=== PATIENT | female | born 1935 | race Caucasian/White ===

== ENCOUNTER 2020-12-12 14:56 | Outpatient (CLI) | payer MEDICARE, OTHER, SELFPAY ==
--- NOTE | 2020-12-12 15:10 | XR_ITS ---
WS: [id number] XR chest 2V* [id number] REASON FOR EXAM: DYSPNEA FINDINGS: The chest is unchanged compared to previous examination of 03/06/2018. Moderate tortuosity the thoracic aorta without aneurysmal dilatation. Normal heart size. Calcified granulomatous disease in both hemithoraces. No active pulmonary parenchymal or pleural disease. Dorsal kyphosis with degenerative changes in the midthoracic spine. Presumed previous left axillary lymph node dissection. XR/XR chest 2V* [id number] IMPRESSION: No acute chest abnormality.
== END 2020-12-12 14:57 | disposition home or self-care (01) ==
LOC: RAD 15:01
PROVIDERS: PCP Family Medicine; Visit Provider Family Medicine
DX: R06.00 Dyspnea, unspecified (principal)
CPT/HCPCS: 71046

== ENCOUNTER 2020-12-16 05:39 | Day surgery (SDC) | payer MEDICARE, OTHER, SELFPAY ==
[2020-12-15 12:58] VITALS: BMI 40.0
[2020-12-16] VITALS (12 sets, daily range): BP systolic 162–201; BP diastolic 60–107; PULSE 73–111; RESP 10–24; TEMP 36.2–36.9; O2SAT 95–100
--- NOTE | 2020-12-16 | XR_ITS ---
WS: [id number] XR lumbar spine 1V [id number] REASON FOR EXAM: Decompression FINDINGS: Single PA view of the lower lumbar spine in surgery. Surgical instrument overlying the L4-L5 disc space left of midline. XR/XR lumbar spine 1V [id number] IMPRESSION: Intraoperative localization as above.
--- NOTE | 2020-12-16 | SCC_ITS ---
Procedure Done: Left L4/5 laminectomy with partial facetectomy 15.5 seconds of fluoroscopic guidance, for a cumulative dose of 6.54 mGy, was provided to Dr. Talbot by the radiology department. C-arm images of the lumbar spine were saved for the patient's permanent record. WALTER
--- NOTE | 2020-12-16 06:24 | ECG_ITS ---
[facility] Test Date: 2020-12-16 Pat Name: Mary Ellen Benjamin Department: Room: Gender: Female Academic Department Chair: : [id number] Requested By: Chepe Toussaint Order Number: [id number] Pastor MD: Milad Roca M.D. Measurements Intervals [place] Rate: 80 P: 2 AR: 184 QRS: -13 QRSD: 70 T: 9 QT: 364 QTc: 422 Interpretive Statements SINUS RHYTHM LOW QRS VOLTAGE IN PRECORDIAL LEADS [QRS DEFLECTION < 1.0 mV IN CHEST LEADS] No previous ECG available for comparison Electronically Signed On 12-16-2020 18:43:08 CDT by Milad Roca M.D. [email or web address] [email or web address]: [id number]
[2020-12-16] MEDS: sodium chloride 0.9% 1,000 ML 30 ML IV (06:40)
--- NOTE | 2020-12-16 06:50 | P.HP_ITS ---
Providers/Chief Complaint Primary Care Provider: Eduin Zeng MD Chief Complaint: lumbar decompression History of Present Illness Mary Ellen Benjamin is a 85 year old femaleback pain that started 5-6 years ago with no known injury. She states her pain keeps her awake at night as well as limits her actives. She enjoys to garden and is unable to do so due to pain. Chief Complaint: back pain Onset: 5-6 years ago Duration: years Characteristics: sharp, burning Severity: 5/10 Location: low back Radiating symptoms: lateral left thigh and hip Aggravating factors: walking, sitting ,standing Alleviating factors: heat, topical creams, ibuprofen at night some relief Neuro deficits: denies numbness, tingling, weakness, incontinence of bowel/bladder, saddle anesthesia. Prior tx: Dr. Presley - Injection with relief for 5 years. She has received multiple injections this year with relief lasting one day. Review of Systems Narrative: General ROS: negative for weight changes, fever ENT ROS: negative for nasal congestion, drainage or bleeding, sore throat, dysphagia or ear pain Eyes: PERRL Hematological and Lymphatic ROS: negative for swollen glands or abnormal bleeding Endocrine ROS: negative for polyuria/polydpsia or new changes in weight Respiratory ROS: negative for cough, shortness of breath, or wheezing Cardiovascular ROS: negative for chest pain or dyspnea on exertion Gastrointestinal ROS: negative for reflux, abdominal pain, change in bowel habits, or black or bloody stools Musculoskeletal ROS: negative for back pain, neck pain, or joint pain or swelling except for current problem Neurological ROS: negative for TIA or stoke symptoms Skin: no rashe Medications/Allergies Home Medications Medication Instructions Recorded Confirmed Last Taken Type pentazocine 50 mg-naloxone 0.5 mg 1 tab PO Q6H PRN 11/08/20 12/16/20 12/15/20 08:00 History tablet potassium chloride 8 mEq 8 meq PO DAILY 11/08/20 12/16/20 12/15/20 08:00 History capsule,extended release triamterene 50 mg capsule 50 mg PO DAILY 11/08/20 12/16/20 12/15/20 08:00 Hist ory Allergies Allergy/AdvReac Type Severity Reaction Status Date / Time aspirin Allergy rash Verified 12/15/20 12:57 Sulfa (Sulfonamide Allergy hives Verified 12/15/20 12:57 Antibiotics) PFSH Acute PFSH: Medical History History of breast cancer History of malignant melanoma History of melanoma History of nonmelanoma skin cancer HTN (hypertension) Family History Other Hypertension Social History Smoking and tobacco status: never smoked History of recent travel: No Vitals/I&O/Wt Last Vital Signs Temp 98.4 F 12/16/20 06:20 Pulse 90 12/16/20 06:20 Resp 20 H 12/16/20 06:20 BP 176/72 12/16/20 06:20 Pulse Ox 98 12/16/20 06:20 Weight last 48 hrs Weight 226 lb Physical Exam Narrative: EXAM NARRATIVE: CONSTITUTIONAL: The patient is a normal appearing [] in no apparent distress. GENERAL: Patient in no acute distress. CARDIAC: Regular rate and rhythm. CHEST: Normal inspiratory effort, normal respiratory rate. ABDOMEN: Soft and nontender. SKIN: Clear, warm and intact. NEURO?PSYCH: The patient is alert and oriented to person, place and time. Sensorv /SILT Motor StrengthShoulder abduction C5 5/5Wrist extension C6 5/5Elbow extension C7 5/5Hand Transmitter Operator C8 5/5Finger abduction T15/5 Radial/ Ulnar/ Median n intact LowerSensory (SILT)Motor StrengthHin flexion L2/3Ant/inner thigh 5/5Hip adduction L2/3 5/5Knee extension L4 Lat thigh, 5/5Toe dorsiflexion L5 5/5Ankle dorsiflexion L5/ B55Qxonhue flexion S1 5/5 DTRBleeps 2+Triceps 2+Brachioradialis 2+Patellar 2+Achilles 2+ MUSCULOSKELETAL: [] UPPEREXTREMITIES: The patient had full active ROM in fingers, wrist, elbow, and shoulder. The patient demonstrated ability to fully flex/extend/abduct/adduct fingers, make ok sign, cross 2nd/3rd digits, extend 1st digit fully.. Radial pulse 2+, CR<2 seconds. LOWER EXTREMITIES: Pt has full, active ROM of toes, ankle, knee, and hip. Dorsalis pedis/posterior tibialis pulses 2+, CR<2 seconds. SPINE: Skin warm, dry, intact. A&P Assessment and plan (1) Lumbar stenosis with neurogenic claudication: Left L4/5 MIS decompression Status: Acute Attestations Medical Necessity Statement*: failed conservative tx Coding Level of Care Code Acute Silverware Cleaner for Chg Fwd Diagnoses Lumbar stenosis with neurogenic claudication M48.062
--- NOTE | 2020-12-16 06:50 | W.PM.OPSUD ---
Surgery/Procedure H&P Update DATE OF PROCEDURE: December 16, 2020 DATE H&P PERFORMED: 12/16/20 PREOP DIAGNOSIS: lumbar stenosis with neurogenic claudication PLANNED PROCEDURE: Operation Date: 12/16/20 07:00 Proposed Procedures p Lumbar Spine Decompression 28936 M48.062(Not Applicable) - Chepe Talbot DO
--- NOTE | 2020-12-16 07:11 | ANES.PREANE2 ---
Pre-Anesthetic Assessment Pre-Anesthetic Assessment: Height/Weight: Height 1.6 m Weight 102.512 kg Temp Pulse Resp BP Pulse Ox 98.4 F 90 20 H 176/72 98 12/16/20 06:20 12/16/20 06:20 12/16/20 06:20 12/16/20 06:20 12/16/20 06:20 Preop Diagnosis: lumbar stenosis with neurogenic claudication Proposed Procedure: Operation Date: 12/16/20 07:00 Proposed Procedures p Lumbar Spine Decompression [id number] M48.062(Not Applicable) - Chepe Talbot DO Familial anesthetic complications: None Was Beta Cheko taken within 24 hours: N/A Was Clonidine taken within 24 hours: N/A Last intake: Intake Last Liquid Date 12/15/20 Last Liquid Time 22:30 Last Solid Date 12/15/20 Last Solid Time 22:30 Social: Social History: No alcohol and No tobacco Exam: Pre-Anes Outpt Exam: alert, oriented x 3, clear to auscultation bilaterally and regular rate & rhythm Airway: MP: 3 Dentition: False GI: GI: GERD Metabolic: Metabolic: Morbid obesity Anesthetic Plan: ASA status: 3 Anesthesia: General Risk of > 500 ml blood loss (7ml/kg in children): No Meds/Allergies Current Medications: Current Medications Generic Name Dose Route Start Last Admin Trade Name Freq PRN Reason Stop Dose Admin Sodium Chloride 1,000 mls @ 30 ml s/hr 12/16/20 06:00 12/16/20 06:40 Sodium Chloride 0.9% IV 12/17/20 05:59 30 mls/hr .Q24H LYNDSEY Administration PFSH Anesthesia PFSH: Medical History History of breast cancer History of malignant melanoma History of melanoma History of nonmelanoma skin cancer HTN (hypertension) Family History Other Hypertension Social History Smoking and tobacco status: never smoked History of recent travel: No Data Anesthesia Cardiac Studies: No Data to Display
[2020-12-16 07:46] LABS: Blood Urea Nitrogen 16 mg/dL (8-23); Calcium 9.4 mg/dL (8.5-10.5); Carbon Dioxide 26 mmol/L (22-29); Chloride 99 mmol/L (98-107); Sodium 136 mmol/L (136-145)
[2020-12-16 08:51] LABS: Anion Gap 16.2 (5-19); Potassium 5.2 mmol/L (3.5-5.1)
[2020-12-16 08:52] LABS: Glucose 122 mg/dL (65-115); Osmolality Calculated 284 mOsm/kg (285-295)
--- NOTE | 2020-12-16 09:43 | PM.OP ---
Operative Report Date of procedure: December 16, 2020 Pre-op Diagnosis: lumbar stenosis with neurogenic claudication Post-op diagnosis: same Procedure Done: Left L4/5 laminectomy with partial facetectomy Surgeon: Chepe Talbot Anesthesia: General Estimated blood loss (mL): 5 Condition: stable Disposition: PACU Procedure: Patient is brought to the operative suite. After undergoing anesthesia they are placed in the prone position. All areas of impingement are well padded. Patient is then prepped and draped in the normal sterile fashion. A skin incision is made over the L4/5 level. This is confirmed under c-arm guidance. A series of dilators are passed and the tubular retractor is docked on the L4 lamina. A bovie is used to clear the soft tissue off the lamina and the L 4/5 facet joint. A high speed luisa is then used to perform the laminectomy and take down the medial aspect of the L 4/5 facet joint. A kerrison rongeure was then used to take down the remaining lamina and smooth the edge of the laminectomy up to the point where the ligamentum flavum attaches. Attention was then brought to the medial aspect of the facet joint. The remaining medial aspect of the superior and inferior aspect of the facet joint were taken down with the kerrison from the pedicle of L4 to L 5. The facet joint had significant hypertrophy. Attention was then brought to the Ligamentum Flavum. The ligament was taken down from the lamina of L4 to L5 and out medially to the remaining facet joint. The ligament was thick. The dura was then exposed. The dura was in good repair. The L4 nerve was then traced with a curette out the L4/5 foramen and found to be adequately decompressed. The L5 nerve was traced with a curette around the L5 pedicle. The lateral recess was opened with a kerrison helping to further decompress the L5 nerve. Wound is then irrigated copiously with saline and surgiflo is used to stop any bleeding. The tubular retractor is removed and the wound is closed with vicryl and monocryl suture. Glue is then used to protect the wound. A sterile dressing is then placed. Patient was then placed in the supine position and transferred to the PACU in stable condition.
--- NOTE | 2020-12-16 14:30 | ANE.PACU2 ---
Inpatient post-anesthesia follow up: Airway intact: Yes Vital signs: Temperature 97.6 F Pulse Rate 73 Respiratory Rate 18 Blood Pressure 162/88 Pulse Oximetry 99 Oxygen Delivery Me thod Room Air Oxygen Flow Rate 2 Fraction of Inspir ed Oxygen Hydration adequate: Yes Nausea and vomiting: No Pain level: 2 Mental status: Baseline
== END 2020-12-16 11:38 | disposition home or self-care (01) ==
PROVIDERS: Anesthesiology; PCP Family Medicine; Visit Provider Orthopaedic Surgery
PROC: (CPT 63005; principal; 2020-12-16 07:00)
DX: M48.062 Spinal stenosis, lumbar region with neurogenic claudication (principal); K21.9 Gastro-esophageal reflux disease without esophagitis; E66.01 Morbid (severe) obesity due to excess calories; Z68.41 Body mass index [BMI] 40.0-44.9, adult; Z85.3 Personal history of malignant neoplasm of breast; I10 Essential (primary) hypertension; Z82.49 Family history of ischemic heart disease and other diseases of the circulatory system
CPT/HCPCS: 63047; 36415; 72020; 76000; 80048; 93005; J0690; J1100; J1200; J2370; J2405; J2704; J2710; J3010; J3490; J7030

== ENCOUNTER 2021-02-16 07:42 | Outpatient (CLI) | payer MEDICARE, OTHER, SELFPAY ==
--- NOTE | 2021-02-16 07:49 | MR_ITS ---
WS: [id number] MRI LUMBAR SPINE WITH AND WITHOUT CONTRAST. HISTORY: Recent lumbar surgery, December 2020. Increasing abdominal pain. Bilateral leg spasms. COMPARISON: 02/26/2019 TECHNIQUE: Sagittal and axial multisequence imaging is submitted. Sagittal and axial T1 fat sat seque nces post-MultiHance 20 cc IV. Cervix the entire spine demonstrates disc and osteophyte disease encroaching into the cervical canal at C5-6 and C6-7. Similar to the prior study. Increase in the thoracic kyphosis. No cord compression. Straightening of the normal lumbar lordosis. New marrow edema and compression fractures in L3, L4 and L5. Small concavity involving the superior endplate of L3 and L4 with compression fractures are appr oximately 10%. There is a small amount of marrow edema in the RIGHT lateral L4 vertebral body without loss of height. Several benign hemangiomas are noted, L1 and L2. Conus terminates normally at L1-2 disc level. L1-L2: Mild annular disc bulging and mild facet arthritis. No significant stenosis. L2-L3: Diffuse annular disc bulging with slight retropulsion of the posterior superior endplate of L3 encroaching upon the ventral thecal sac. There is deformity of the thecal sac and the nerve roots. S lightly greater deformity involving the RIGHT subarticular recess and proximal foramen. Marked ligame ntum flavum hypertrophy. Mild facet joint arthritis. Disc is asymmetrically extending into the RIGHT foramen, similar to the prior study. Mild central and RIGHT subarticular recess stenosis. L3-L4: Diffuse annular disc bulging and mild osteophytic ridging. There is severe bilateral ligamentu m flavum hypertrophy encroaching into the posterior thecal sac. Mild central, bilateral subarticular and foraminal stenosis. Similar to the prior study. L4-L5: Diffuse annular disc bulging and osteophytic ridging. Severe RIGHT ligamentum flavum hypertrop hy. Prior resection of the LEFT ligamentum flavum since the prior examination. LEFT hemilaminectomy d efect. There is encroachment into the thecal sac by disc and facet and ligamentum flavum hypertrophy. Moderate central stenosis with moderate bilateral subarticular recess stenosis. Slightly greater enc roachment upon the traversing RIGHT L5 nerve root. Mild foraminal stenosis. L5-S1: Mild annular disc bulging and osteophytic ridging. There is very slight retrolisthesis of L5 b y 3 mm. Large prior RIGHT hemilaminectomy defect. Debridement of the RIGHT ligamentum flavum. There i s a central disc protrusion encroaching into the ventral thecal sac. Disc is asymmetrically extending into the RIGHT foramen. Mild disc contact on the RIGHT S1 nerve root but no displacement of the nerv e root. Similar to the prior study. There is mild enhancement within the L3, L4 and L5 vertebral bodies at the site of the fractures. Thi s is probably reactive hyperemia. There is also very slight enhancement along the postsurgical tract at the LEFT L4-5 level. No osteomyelitis. No epidural abscess. Mild paravertebral enhancement is als o noted at the L4 level. No focal collection or abscess. MR/MR lumbar spine wo/w con [id number] IMPRESSION: 1. New compression fractures at L3, L4 and L5. These fractures were not presen t on 11/08/2020 radiograph. 10% loss of height at L3 and L5 with no loss of heigh t at L4. 2. Retropulsion of the L3 vertebral body resulting in deformity of the thecal sac and encroachment centrally and into the RIGHT subarticular recess. 3. Subacute postoperative changes on the LEFT at L4-5 with hemilaminectomy def ect. No evidence for abscess. 4. Mild enhancement within the L3, L4 and L5 vertebral bodies probably due to the fractures. 5. Mild central, bilateral subarticular and foraminal stenosis at L3-4. 6. Moderate central and bilateral subarticular recess stenosis at L4-5 with gr eater encroachment upon the traversing RIGHT L5 nerve root and mild foraminal s tenosis. 7. RIGHT hemilaminectomy defect at L5-S1 is remote. There is central disc prot rusion and osteophytes causing mild contact on the RIGHT S1 nerve root with no displacement. Similar to the prior study.
[2021-02-16] MEDS: gadobenate dimeglumine 20 mL vial IV (08:57)
== END 2021-02-16 07:43 | disposition home or self-care (01) ==
LOC: RADSHAW 07:47
PROVIDERS: PCP Family Medicine; Visit Provider Orthopaedic Surgery
DX: M48.062 Spinal stenosis, lumbar region with neurogenic claudication (principal); Z48.89 Encounter for other specified surgical aftercare; S32.039A Unspecified fracture of third lumbar vertebra, initial encounter for closed fracture; S32.049A Unspecified fracture of fourth lumbar vertebra, initial encounter for closed fracture; S32.059A Unspecified fracture of fifth lumbar vertebra, initial encounter for closed fracture; X58.XXXA Exposure to other specified factors, initial encounter; M48.061 Spinal stenosis, lumbar region without neurogenic claudication
CPT/HCPCS: 72158; A9577

== ENCOUNTER 2021-02-22 17:09 | Emergency (ER) | payer MEDICARE, OTHER, SELFPAY ==
[2021-02-22] VITALS (18 sets, daily range): BP systolic 181–235; BP diastolic 71–125; PULSE 71–86; RESP 18–20; TEMP 36.7–37.1; O2SAT 94–99; BMI 41.7
--- NOTE | 2021-02-22 17:19 | ED_ITS ---
HPI - Back Pain/Injury General: Chief Complaint: Back Pain/Injury Stated Complaint: BACK PAIN POST SURGERY Time Seen by Provider: 02/22/21 17:19 History of Present Illness: HPI Narrative: Patient is an 86-year-old female comes to the ED with acute on chronic back pain. Today while at rest patient started having severe back pain and took 2 of her hydrocodone's and it did not help. Pain is located in lumbar spine. Denies any injury, fall or trauma to cause any acute pain. Today patient that it was hard for her to get up and walk due to the pain in her lower back. Patient had surgery to decompress lumbar spine back and on December 16 and she has been following with Dr. Talbot since. She has still been having quite a bit of pain since surgery. She is had an MRI done a couple weeks ago and went over the results with Dr. Talbot on February 16. She was still having pain at that time and she talked with Dr. Talbot then and he put in a referral for her to see Dr. Polanco to get some steroid injections to help with pain and inflammation. That appointment has not been scheduled. Denies any bladder or bowel incontinence/issues or weakness to lower extremities. Patient states that she takes Triamterene daily for her blood pressure, but states she has not taken her medication for the past 2 to 3 days. Patient says it makes her go to the bathroom and getting up and going to the bathroom causes her pain so she stopped taking it. Patient denies any chest pain, shortness of breath or any current headache. She says she woke up today with very mild light headache but it resolved. Associated symptoms: Deny abdominal pain, chills, dysuria, fatigue, fever(s), hematuria, nausea or vomiting Review of Systems Const: Denies: fever(s), chills or fatigue Eyes: Denies: change in vision or eye discomfort ENMT: Denies: throat pain, odynophagia, nasal discharge or nasal congestion Card: Denies: chest pain, palpitations, edema, swelling of feet/ankles, dyspnea on exertion or orthopnea Resp: Denies: dyspnea, productive cough or non-productive cough GI: Denies: abdominal pain, nausea, vomiting, diarrhea, constipation or hematochezia : Denies: flank pain, dysuria or hematuria Musc: Reports: back pain; Denies: neck pain or extremity swelling Skin/Breast: Denies: rash or new lesions Neuro: Denies: headache(s), numbness in extremities or weakness in extremities PFSH ED PFSH: Medical History History of breast cancer History of malignant melanoma History of melanoma History of nonmelanoma skin cancer HTN (hypertension) Family History Other Hypertension Social History Smoking and tobacco status: never smoked History of recent travel: No Physical Exam Const: COMMON NORMALS: patient oriented x3 and alert GENERAL APPEARANCE: cooperative and comfortable HENMT: COMMON NORMALS: normocephalic HEAD & SCALP: normocephalic MOUTH: Normal oral and palatal mucosa present THROAT: posterior oropharynx normal and uvula midline Neck/C-Spine: COMMON NORMALS: supple GENERAL: Yes normal visual inspection Resp: COMMON NORMALS: normal respiratory effort, No retractions, No use of accessory muscles and clear to auscultation bilaterally AUSCULTATION: clear to auscultation bilaterally Cardio: COMMON NORMALS: regular rate, regular rhythm, S1 normal heart sound present, S2 normal heart sound present, No gallops present (Cardio), No clicks present (Cardio), No murmurs present (Cardio) and Peripheral pulses 2+ throughout RATE: regular rate RHYTHM: regular rhythm HEART SOUNDS: S1 normal heart sound present and S2 normal heart sound present PERIPHERAL P ULSES: Peripheral pulses 2+ throughout GI: COMMON NORMALS: Normal to inspection, nondistended, normoactive bowel sounds present, Soft to palpation, non-tender and no masses PALPATION: Yes Soft to palpation : COMMON NORMALS: Yes no CVA tenderness BLADDER/KIDNEY EXAM: Yes no CVA tenderness Back/Pelvis: COMMON NORMALS: no CVA tenderness LUMBAR SPINE/LOWER BACK: Yes pain with ROM, Yes lumbar spinal tenderness Lumbar spinal tenderness location: L3, L4 and L5 and Yes paraspinal muscle tenderness Lumbar paraspinal muscle tenderness: bilateral Bilateral lumbar paraspinal muscle tenderness: L3, L4 and L5 Extremity: COMMON NORMALS: normal to inspection Neuro: COMMON NORMALS: patient oriented x3 and moves all extremities SENSORIUM/ORIENTATION: Yes alert Skin: GENERAL SKIN EXAM: dry skin Course Reevaluation(s): Reevaluation #1: Patient was able to ambulate up to the bathroom with minimal assistance by the nurse before pain was controlled. Consultations: Consultation #1: I contacted Dr. Talbot the orthospine specialist that sees patient. Told him about patient's current ED visit and he recommended giving patient something stronger for pain like hydrocodone 10 or Percocets to help manage pain at home. He is currently in the process of getting patient set up with Dr. Polanco for outpatient steroid injections to help with pain. Time: 19:29 Consultation #2: After patient received p.o. Percocet she said her back pain had improved greatly and she is feeling a lot better. Vital Signs: Vital signs: Vital Signs Temperature 98.1 F 02/22/21 23:05 Pulse Rate 75 02/22/21 23:05 Respiratory Rate 20 H 02/22/21 23:23 Blood Pressure 195/96 02/22/21 23:05 Pulse Oximetry 96 02/22/21 23:23 MDM - Back Pain/Injury MDM Narrative: Medical decision making narrative: Patient is an 86-year-old female comes to the ED with acute on chronic lower back pain patient has a past medical history of lumbar decompression surgery and is currently being followed by Dr. Talbot. She is in the process of being referred to Dr. Polanco by Dr. Talbot to have spinal steroid injections. She has hydrocodone 5 for pain at home. Denies any acute trauma or injury to cause worsening pain. Denies any other symptoms such as headache, neurological deficits, chest pain or shortness of breath. Patient does admit to not taking any of her blood pressure medications for the past couple days because it makes her go to the bathroom and due to her pain she does not have to get up frequently. Patient appears in no acute distress and is sitting comfortably on wheelchair when I enter the exam room. Rest of exam is benign. Patient had elevated blood pressure here in the ED of 223/94 respiratory vitals are stable. Even after she received morphine to help reduce the pain her systolic blood pressure stayed above 200. Her elevated blood pressure likely due to not taking her prescribed hypertension medications for the past 2 days and acute pain. Patient then had an IV started and labs were drawn. CBC and CMP were unremarkable. I contacted Dr. Talbot and told about patient case. He wanted me to send patient home with a stronger pain medication to help control pain at home. Patient was given 2 doses of 20 mg IV labetalol and her systolic blood pressure reduced down below 190. She was also given a p.o. dose of clonidine. Patient is able to ambulate to the bathroom with minimal assistance by nurse. Patient was given p.o. Percocet and she said that her back pain had improved greatly. Patient was discharged home with a prescription for Percocet and she was told to contact her PCP in the morning to set up an appointment and discuss blood pressure medication management. Stressed with patient the importance of taking her prescribed blood pressure medications as prescribed daily. Return to ED precautions given. Patient under stood and agree with plan. Lab Data: Attestation: I reviewed the patient's lab results. Labs: Lab Results 02/22/21 02/22/21 19:55 19:55 WBC 5.9 10^3/uL 10^3/ uL (4.0-10.0) RBC 4.70 10^6/uL 10^6 /uL (4.1-5.3) Hgb 13.8 g/dL g/dL (11.5-15.3) Hct 42.0 % % (37.0-47.0) MCV 89.4 fl fl (81-99) MCH 29.4 pg pg (28.0-34.0) MCHC 32.9 g/dL g/dL (30.0-36.0) RDW 14.5 % % (12.1-15.1) Plt Count 180 10^3/cmm 10^3 /cmm (130-400) MPV 10.7 fL H fL (7.4-10.4) Neut % (Auto) 85.9 % % Lymph % (Auto) 10.1 % % [place] % (Auto) 3.7 % % Eos % (Auto) 0.0 % % Baso % (Auto) 0.0 % % Neut # (Auto) 5.10 10^3/uL 10^3 /uL (1.8-7.7) Lymph # (Auto) 0.6 10^3/uL L 10^ 3/uL (0.8-4.8) [place] # (Auto) 0.2 10^3/uL 10^3/ uL (0.2-0.9) Eos # (Auto) 0.0 10^3/uL 10^3/ uL (0.0-0.8) Baso # (Auto) 0.0 10^3/uL 10^3/ uL (0.0-0.1) Nucleated RBC % (a uto) 0 % % Nucleated RBCs # 0.0 /100WBC /100W BC Sodium 140 mmol/L mmol/L (136-145) Potassium 3.5 mmol/L mmol/L (3.5-5.1) Chloride 100 mmol/L mmol/L (98-107) Carbon Dioxide 23 mmol/L mmol/L (22-29) Anion Gap 20.5 H (5-19) BUN 7 mg/dL L mg/dL (8-23) Creatinine 0.6 mg/dL mg/dL (0.5-0.9) GFR Calculation Not Reportable Glucose 137 mg/dL H mg/dL (65-115) Calculated Osmolal ity 290 mOsm/kg mOsm/ kg (285-295) Calcium 9.2 mg/dL mg/dL (8.5-10.5) Total Bilirubin 0.9 mg/dL mg/dL (0.15-1.2) AST 18 U/L U/L (0-32) ALT 8 U/L U/L (0-33) Alkaline Phosphata se 197 IU/L H IU/L (35-105) Total Protein 7.4 g/dL g/dL (6.6-8.7) Albumin 4.4 g/dL g/dL (3.5-5.2) Globulin 3.0 g/dL g/dL (1.3-4.6) Discharge Plan Discharge Patient Disposition: Home Clinical Impression: Asymptomatic hypertensive urgency Acute lumbar back pain Qualifiers: Back pain laterality: bilateral Sciatica presence: without sciatica Qualified Code(s): M54.50 - Low back pain, unspecified Condition: Stable Prescriptions: No Action triamterene 50 mg capsule 50 mg PO DAILY RF: 0 pentazocine-naloxone 50-0.5 mg tablet 1 tab PO Q6H PRN (Reason: Pain) RF: 0 potassium chloride 8 mEq capsule, extended release 8 meq PO DAILY RF: 0 hydrocodone-acetaminophen 5-325 mg tablet 1 - 2 tab PO .Q4-6H PRN (Reason: pain) 7 Days Qty: 40 RF: 0 prednisone 20 mg tablet 20 mg PO DAILY Qty: 15 RF: 0 Discharge Orders: Discharge ED (Routine); Ordered 02/22/21 Ordered By: Eduin Armstrong Referrals: Eduin Zeng MD [Primary Care Provider] - Discharge Diet: Regular Discharge Activity: Increase activity as tolerated Patient Instructions: Acute Low Back Pain (ED), Hypertensive Crisis (ED), Opioid Safety Activity Restrictions/Additional Instructions: Follow-up with medical provider as directed. Check blood pressures at home and contact your PCP tomorrow morning to discuss blood pressure medication management and make sure to be taking your blood pressure medications daily. Contact Dr. Talbot's office to set up a follow-up appointment. Take medications as prescribed. Return to the ER or your medical provider if condition worsens. Please read and understand discharge instructions. Thank you for choosing [facility] for your healthcare needs today. Please realize this is an emergency room and that we are providing you with a medical screening exam and this may not be complete and all inclusive of all the testing and or work up that you may need to determine your ailment or severity of your illness. It is very important that you follow up as instructed or that you return to the Emergency Department should you have concerns or if your condition changes or worsens in any way. Coding Level of Care Code ED Lumber Straightener for Isai Estrella Exam Comprehensive
[2021-02-22] MEDS: orphenadrine 30 mg/mL Inj 2 mL 60 MG IM (18:03)
[2021-02-22] MEDS: morphine 4 mg/mL SDV 1 mL IM (18:04)
--- NOTE | 2021-02-22 19:28 | PC.NURSE ---
provider notified of elevated blood pressure and at bedside.
[2021-02-22] MEDS: oxyCODONE-APAP 5-325 mg Tablet 1 TAB PO ×3 (20:09→23:23)
[2021-02-22 20:23] LABS: Hemoglobin 13.8 g/dL (11.5-15.3); Lymphocytes # 0.6 10^3/uL (0.8-4.8); Lymphocytes % 10.1 %; Mean Corpuscular HGB Conc 32.9 g/dL (30.0-36.0); Mean Corpuscular Hemoglobin 29.4 pg (28.0-34.0); Mean Corpuscular Volume 89.4 fl (81-99); Mean Platelet Volume 10.7 fL (7.4-10.4); Monocytes # 0.2 10^3/uL (0.2-0.9); Monocytes % 3.7 %; Neutrophils % 85.9 %; Nucleated Red Blood Cells % 0 %; Platelet Count 180 10^3/cmm (130-400); Red Cell Distribution Width 14.5 % (12.1-15.1); White Blood Count 5.9 10^3/uL (4.0-10.0)
[2021-02-22] MEDS: labetalol 5 mg/mL SDV 20mL 20 MG IVP ×2 (20:24→21:29)
--- NOTE | 2021-02-22 20:27 | PC.NURSE ---
2009- patient escorted to restroom via wheelchair . patient helped up to commode with help. Family at bedside while urniating . Stepped outside of restroom. Call ight within reach. patient wheeled back to room with no difficulties.
[2021-02-22 20:41] LABS: Alanine Aminotransferase 8 U/L (0-33); Albumin Level 4.4 g/dL (3.5-5.2); Alkaline Phosphatase 197 IU/L (35-105); Anion Gap 20.5 (5-19); Aspartate Amino Transferase 18 U/L (0-32); Blood Urea Nitrogen 7 mg/dL (8-23); Calcium 9.2 mg/dL (8.5-10.5); Carbon Dioxide 23 mmol/L (22-29); Chloride 100 mmol/L (98-107); Glucose 137 mg/dL (65-115); Osmolality Calculated 290 mOsm/kg (285-295); Potassium 3.5 mmol/L (3.5-5.1); Sodium 140 mmol/L (136-145); Total Bilirubin 0.9 mg/dL (0.15-1.2); Total Protein 7.4 g/dL (6.6-8.7)
[2021-02-22] MEDS: cloNIDine 0.1 mg Tablet PO (22:51)
== END 2021-02-22 23:05 | disposition home or self-care (01) ==
PROVIDERS: Emergency Provider Physician Assistant; PCP Family Medicine
DX: M54.50 Low back pain, unspecified (principal); I16.0 Hypertensive urgency; Z85.3 Personal history of malignant neoplasm of breast; Z85.820 Personal history of malignant melanoma of skin; I10 Essential (primary) hypertension
CPT/HCPCS: 80053; 85025; 96372; 96374; 96376; 99284; J2270; J2360; J2930; J3490

== ENCOUNTER 2021-02-24 12:36 | Inpatient (IN) | payer MEDICARE, OTHER, SELFPAY ==
[2021-02-24 12:39] VITALS: BMI 38.9
[2021-02-24 12:45] VITALS: BP 190/101; PULSE 72; RESP 16; TEMP 36.8; O2SAT 97
[2021-02-24 13:52] VITALS: RESP 16
[2021-02-24] MEDS: morphine 4 mg/mL SDV 1 mL IVP ×2 (13:52→22:18)
[2021-02-24] MEDS: dexamethasone 10 mg/mL INJ IVP (13:55)
--- NOTE | 2021-02-24 13:59 | NUR.SHIFT ---
pt states that she is unable to provide urine specimen at this time.
[2021-02-24 14:06] LABS: Hemoglobin 12.7 g/dL (11.5-15.3); Lymphocytes % 14.7 %; Mean Corpuscular HGB Conc 32.6 g/dL (30.0-36.0); Mean Corpuscular Hemoglobin 29.4 pg (28.0-34.0); Mean Corpuscular Volume 90.3 fl (81-99); Mean Platelet Volume 10.1 fL (7.4-10.4); Monocytes # 0.6 10^3/uL (0.2-0.9); Monocytes % 8.4 %; Neutrophils # 4.98 10^3/uL (1.8-7.7); Neutrophils % 76.6 %; Nucleated Red Blood Cells % 0 %; Platelet Count 172 10^3/cmm (130-400); Red Blood Count 4.32 10^6/uL (4.1-5.3); Red Cell Distribution Width 14.8 % (12.1-15.1); White Blood Count 6.5 10^3/uL (4.0-10.0)
--- NOTE | 2021-02-24 14:15 | W.ED.BACK ---
HPI - Back Pain/Injury General: Chief Complaint: Back Pain/Injury Stated Complaint: BACK PAIN POST SURGERY Time Seen by Provider: 02/24/21 12:48 History of Present Illness: HPI Narrative: 86-year-old female presents emergency room with complaint of back pain. Several weeks ago patient had a lumbar laminectomy. Since that time she has developed a new compression fractures found on an MRI done recently. She has been referred to the pain clinic for further pain control. She was seen yesterday in the emergency room and given Percocet instead of hydrocodone. She was seen on the by Dr. Talbot who had done her back surgery and also had an MRI on that date. She continues to have radicular leg pain. No saddle anesthesia no fecal incontinence or urinary retention. Patient reporting she has difficulty with standing and walking and transfers due to the pain. MD elicited complaint: back pain Pertinent past history: prior back pain and back surgery Onset (ago): week(s) Timing: constant and progressively worsening Severity: moderate Quality: sharp and spasming Location: lumbar spine Radiation: left upper leg and left leg below the knee Exacerbating factors: movement and walking Relieving factors: supine Associated symptoms: Deny abdominal pain, arthralgias, chills, change in bowel habits, difficulty walking, dysuria, fatigue, fecal incontinence, fever(s), hematuria, myalgias, nausea, numbness, syncope, tingling/numbness/burning, urinary frequency, urinary urgency, vomiting or weakness Review of Systems Const: Denies: fever(s), chills or fatigue ENMT: Denies: throat pain, ear or mastoid pain, nasal discharge or nasal congestion Card: Denies: syncope Resp: Denies: dyspnea, productive cough or non-productive cough GI: Denies: abdominal pain, nausea, vomiting, fecal incontinence or change in bowel habits : Denies: dysuria, urinary urgency or hematuria Skin/Breast: Denies: rash or pruritus Neuro: Denies: difficulty walking PFSH ED PFSH: Medical History History of breast cancer History of malignant melanoma History of melanoma History of nonmelanoma skin cancer HTN (hypertension) Family History Other Hypertension Social History Smoking and tobacco status: never smoked History of recent travel: No Physical Exam Const: COMMON NORMALS: no acute distress GENERAL APPEARANCE: cooperative and comfortable ORIENTATION/CONSCIOUSNESS: Yes awake, Yes oriented to person, Yes oriented to place and Yes oriented to time HENMT: COMMON NORMALS: normocephalic, atraumatic and hearing grossly normal bilaterally HEAD & SCALP: normocephalic and atraumatic Neck/C-Spine: COMMON NORMALS: no JVD Resp: COMMON NORMALS: normal respiratory effort, No retractions, No use of accessory muscles and clear to auscultation bilaterally AUSCULTATION: clear to auscultation bilaterally Cardio: COMMON NORMALS: no JVD, regular rate, regular rhythm and No murmurs present (Cardio) RATE: regular rate RHYTHM: regular rhythm GI: COMMON NORMALS: Soft to palpation and No hepatosplenomegaly present AUSCULTATION: Yes normoactive bowel sounds PALPATION: Yes Soft to palpation, No Tenderness to palpation present (GI), No Guarding due to palpation present (GI) and Yes No hepatosplenomegaly present Extremity: COMMON NORMALS: normal to inspection, capillary refill normal, no clubbing, cyanosis or edema, no calf tenderness and no pedal edema Neuro: SENSORIUM/ORIENTATION: Yes oriented to person, Yes oriented to place and Yes oriented to time Skin: COMMON NORMALS: no rashes or lesions noted GENERAL SKIN EXAM: no rashes or lesions noted Course Vital Signs: Vital signs: Vital Signs Temperature 97.7 F 03/02/21 13:29 Pulse Rate 75 03/02/21 13:29 Respiratory Rate 18 03/02/21 13:29 Blood Pressure 152/59 03/02/21 13:29 Pulse Oximetry 96 03/02/21 13:29 MDM - Back Pain/Injury MDM Narrative: Medical decision making narrative: Patient recently had part hemilaminectomy on a follow-up MRI there are new compression fractures. Patient is unable to manage at this point pain galloway or functional. Will admit for pain control. Consult Dr. Talbot. Discussed with Dr. Reid. At this point patient has no saddle anesthesia no fecal incontinence or urinary retention watch for other potential signs of cauda equina. Lab Data: Labs: Lab Results 1202/24/21 02/24/21 13:57 13:57 14:46 WBC 6.5 10^3/uL 10^3/ uL (4.0-10.0) RBC 4.32 10^6/uL 10^6 /uL (4.1-5.3) Hgb 12.7 g/dL g/dL (11.5-15.3) Hct 39.0 % % (37.0-47.0) MCV 90.3 fl fl (81-99) MCH 29.4 pg pg (28.0-34.0) MCHC 32.6 g/dL g/dL (30.0-36.0) RDW 14.8 % % (12.1-15.1) Plt Count 172 10^3/cmm 10^3 /cmm (130-400) MPV 10.1 fL fL (7.4-10.4) Neut % (Auto) 76.6 % % Lymph % (Auto) 14.7 % % [place] % (Auto) 8.4 % % Eos % (Auto) 0.0 % % Baso % (Auto) 0.0 % % Neut # (Auto) 4.98 10^3/uL 10^3 /uL (1.8-7.7) Lymph # (Auto) 1.0 10^3/uL 10^3/ uL (0.8-4.8) [place] # (Auto) 0.6 10^3/uL 10^3/ uL (0.2-0.9) Eos # (Auto) 0.0 10^3/uL 10^3/ uL (0.0-0.8) Baso # (Auto) 0.0 10^3/uL 10^3/ uL (0.0-0.1) Nucleated RBC % (a uto) 0 % % Nucleated RBCs # 0.0 /100WBC /100W BC Sodium 141 mmol/L mmol/L (136-145) Potassium 3.3 mmol/L L mmol /L (3.5-5.1) Chloride 102 mmol/L mmol/L (98-107) Carbon Dioxide 26 mmol/L mmol/L (22-29) Anion Gap 16.3 (5-19) BUN 15 mg/dL mg/dL (8-23) Creatinine 0.7 mg/dL mg/dL (0.5-0.9) GFR Calculation Not Reportable Glucose 127 mg/dL H mg/dL (65-115) Calculated Osmolal ity 294 mOsm/kg mOsm/ kg (285-295) Calcium 9.2 mg/dL mg/dL (8.5-10.5) Urine Color Yellow (Yellow) Urine Appearance Cloudy (CLEAR) Urine pH 7 (5-7) Ur Specific Gravit y 1.010 (1.005-1.030) Urine Protein Trace (Negative) Urine Glucose (UA) Norm (Normal) Urine Ketones Negative (Negative) Urine Blood Neg (Negative) Urine Nitrate Negative (Negative) Urine Bilirubin Neg (Negative) Urine Urobilinogen Norm mg/dL mg/dL (Negative) Ur Leukocyte Lila ase Negative (Negative) Urine RBC None /hpf /hpf (0-2) Urine WBC None /hpf /hpf (0-5) Ur Squamous Epith Cells None /hpf /hpf (0-5) Amorphous Sediment Not Reportable Urine Bacteria None /hpf /hpf (NONE) Discharge Plan Discharge Patient Disposition: Admitted As Inpatient Admit Provider: Alee Reid Clinical Impression: Lumbar compression fracture, History of malignant melanoma, Lumbar stenosis with neurogenic claudication, History of breast cancer Condition: Stable Discharge Diet: Cardiac Discharge Activity: Increase activity as tolerated Coding Level of Care Code ED Airplane Cover Maker for Chg Fwd Exam Comprehensive
[2021-02-24 14:34] LABS: Anion Gap 16.3 (5-19); Blood Urea Nitrogen 15 mg/dL (8-23); Calcium 9.2 mg/dL (8.5-10.5); Carbon Dioxide 26 mmol/L (22-29); Chloride 102 mmol/L (98-107); Glucose 127 mg/dL (65-115); Osmolality Calculated 294 mOsm/kg (285-295); Potassium 3.3 mmol/L (3.5-5.1); Sodium 141 mmol/L (136-145)
[2021-02-24 15:06] VITALS: RESP 16
[2021-02-24] MEDS: morphine 4 mg/mL SDV 1 mL 6 MG IVP (15:06)
[2021-02-24] MEDS: orphenadrine 30 mg/mL Inj 2 mL 60 MG IVP (15:07)
[2021-02-24] MEDS: labetalol 5 mg/mL SDV 20mL 10 MG IVP (15:13)
[2021-02-24] MEDS: amlodipine 5 mg Tablet PO (15:17)
[2021-02-24 15:26] LABS: Add Urine Microscopic? YES; Bilirubin Urine Neg (Negative); Blood Urine Neg (Negative); Glucose Urine UA Norm (Normal); Ketones Urine Negative (Negative); Leukocyte Esterase Urine Negative (Negative); Nitrate Urine Negative (Negative); Protein Urine Trace (Negative); Urine Appearance Cloudy (CLEAR); Urine Color Yellow (Yellow); Urobilinogen Urine Norm (Negative); pH Urine 7 (5-7)
[2021-02-24 15:27] LABS: Add Urine Culture? No
--- NOTE | 2021-02-24 16:04 | PM.HP ---
Providers/Chief Complaint Primary Care Provider: Eduin Zeng MD Chief Complaint: BACK PAIN POST SURGERY History of Present Illness Mary Ellen Benjamin is a 86 year old female with past medical history of breast cancer and recent L4 L5 laminectomy presented to the ER with complaint of back pain. She says she had surgery done on December 16 and ever since the surgery she has not been able to be pain-free. She has had continuous pain. At first she could walk around with a walker but now cannot do that either. She did see her orthopedic surgeon outpatient in our clinic to go over MRI results recently. MRI from February 16 does show her having new compression fractures at L3-L4 and L5. She states that she was not told this at the clinic when she went to see her surgeon. She says she was told regarding her fractures by her primary care physician yesterday when she went to see him. She was also referred to a pain clinic for possible epidural injections but has not made it there yet so far since the office is closed for the holidays. She has been in a lot of pain. At baseline she has urinary incontinence and thus not something new for her. She has not lost control of her bowels however. She also states she has not taken her blood pressure medication at home and therefore her pressure has been high. She is on losartan 100 mg daily. She was recently in our ER and given pain medication and outpatient appointment with pain clinic and sent home. Today she denies any shortness of breath, chest pain, abdominal pain. She does endorse having a lot of lower back pain. ER course: Blood pressure 190/101 on arrival, respiratory 16, pulse rate 72, temperature 98.3, pulse ox 97%. Imaging from February 16 MRI was reviewed by ER physician. Patient does have new compression fractures at L3, L4, L5. There is retropulsion of L3 vertebral body resulting in deformity of the thecal sac and encroachment centrally and into the right subarticular recess. There is no evidence of abscess. Mild enhancement within L3, L4, L5 probably due to fractures. Mild central bilateral subarticular and foraminal stenosis at L3-L4. For high blood pressure she was given labetalol 10 mg IV x1, morphine 6 mg IV x1, morphine 4 mg IV x1, dexamethasone 10 mg IV push x2, amlodipine 5 mg once. Review of Systems General: Reports: 10 or more systems reviewed and unremarkable except in HPI and below Medications/Allergies Home Medications Medication Instructions Recorded Confirmed Last Taken Type losartan 100 mg PO DAILY 02/24/21 02/24/21 02/24/21 History oxycodone-acetaminophen 1 tab PO Q6H PRN 02/24/21 02/24/21 02/24/21 History Allergies Allergy/AdvReac Type Severity Reaction Status Date / Time aspirin Allergy rash Verified 02/24/21 12:39 Sulfa (Sulfonamide Allergy hives Verified 02/24/21 12:39 Antibiotics) PFSH Acute PFSH: Medical History History of breast cancer History of malignant melanoma History of melanoma History of nonmelanoma skin cancer HTN (hypertension) Family History Other Hypertension Social History Smoking and tobacco status: never smoked History of recent travel: No Vitals/I&O/Wt Last Vital Signs Temp 98.3 F 02/24/21 12:45 Pulse 72 02/24/21 12:45 Resp 16 02/24/21 15:06 BP 190/101 02/24/21 12:45 Pulse Ox 97 02/24/21 12:45 Weight last 48 hrs Weight 99.79 kg Physical Exam Narrative: EXAM NARRATIVE: General: Alert oriented x3, patient seen laying in bed with her daughters pain present at bedside. HEENT: Normocephalic, atraumatic, EOMI, breathing room air Cardio: Regular rate rhythm, normal S1-S2, no murmurs rubs gallops, Respiratory: Good bilateral air entry, no wheezes no rhonchi appreciated GI: Abdomen soft, nontender, nondistended, bowel sounds + Behavior: Appropriate and cooperative Extremities: Pulses 2+, trace edema bilaterally lower extremities Back: Paraspinal tenderness present, range of motion limited secondary to pain. Patient has been ordered a TLSO brace. Data : 02/24/21 13:57 02/24/21 13:57 A&P Assessment and plan (1) Acute lumbar back pain: Status: Acute Qualifiers: Back pain laterality: bilateral Sciatica presence: without sciatica Qualified Code(s): M54.50 - Low back pain, unspecified (2) Asymptomatic hypertensive urgency: Status: Acute (3) Lumbar stenosis with neurogenic claudication: Status: Acute (4) Lumbar stress fracture: Status: Acute Additional A&P Information #Recent L4/L5 laminectomy Dec 16 (post op) #New compression fractures L3,L4, L5 #Lumbar stenosis with neurogenic claudication #Lumbar back pain - TLSO brace to be placed - Dexamethasone 4 mg IV daily - Pain management - order morphine 2 mg IV q4 hours as needed - Will discuss with orthopedic surgery - PT, possible rehab? - place moyer catheter - complete bedrest until brace placed #Asymptomatic hypertensive urgency - Not taking her BP pills at home - ordered labatolol and hydralazine in ER. Pressure better now. - Will restart home losartan 100 mg daily - She also got amlodipine 5 in ER. Will watch BP Full Code DVT PPX: lovenox Attestations Medical Necessity Statement*: > 48 hour stay Coding Level of Care Code Acute Informatics Manager for [facility] Fwd Diagnoses Acute lumbar back pain M54.50 Back pain laterality: bilateral Sciatica presence: without sciatica Asymptomatic hypertensive urgency I16.0 Lumbar stenosis with neurogenic claudication M48.062 Lumbar stress fracture M48.46XA
[2021-02-24] MEDS: hyDRALAzine 20 mg/mL INJ 1 mL 10 MG IVP (16:11)
--- NOTE | 2021-02-24 18:23 | PC.NURSE ---
ATTEMPTED REPORT NURSE UNAVAILABLE.
--- NOTE | 2021-02-24 18:39 | PC.NURSE ---
Attempted to get report again at this time.
--- NOTE | 2021-02-24 19:02 | PC.NURSE ---
REPORT GIVEN TO [facility] ASS[facility]ARE.
[2021-02-24 20:00] VITALS: BP 157/65; PULSE 81; RESP 18; TEMP 36.7; O2SAT 99
[2021-02-24 20:46] VITALS: PULSE 80
--- NOTE | 2021-02-24 21:00 | PC.NURSE ---
TSLO Brace in use.
[2021-02-24 22:18] VITALS: RESP 18
[2021-02-25] VITALS (9 sets, daily range): BP systolic 136–168; BP diastolic 58–76; PULSE 68–82; RESP 15–21; TEMP 36.6–36.7; O2SAT 91–98
[2021-02-25 05:20] LABS: Hematocrit 37.8 % (37.0-47.0); Hemoglobin 12.4 g/dL (11.5-15.3); Lymphocytes # 0.4 10^3/uL (0.8-4.8); Lymphocytes % 11.7 %; Mean Corpuscular HGB Conc 32.8 g/dL (30.0-36.0); Mean Corpuscular Hemoglobin 29.3 pg (28.0-34.0); Mean Corpuscular Volume 89.4 fl (81-99); Mean Platelet Volume 10.9 fL (7.4-10.4); Monocytes # 0.2 10^3/uL (0.2-0.9); Monocytes % 6.1 %; Neutrophils # 3.06 10^3/uL (1.8-7.7); Neutrophils % 81.7 %; Nucleated Red Blood Cells % 0 %; Platelet Count 160 10^3/cmm (130-400); Red Blood Count 4.23 10^6/uL (4.1-5.3); Red Cell Distribution Width 14.8 % (12.1-15.1); White Blood Count 3.8 10^3/uL (4.0-10.0)
[2021-02-25 05:55] LABS: Alanine Aminotransferase 7 U/L (0-33); Albumin Level 3.7 g/dL (3.5-5.2); Alkaline Phosphatase 147 IU/L (35-105); Anion Gap 13.7 (5-19); Aspartate Amino Transferase 13 U/L (0-32); Blood Urea Nitrogen 17 mg/dL (8-23); Calcium 9.2 mg/dL (8.5-10.5); Carbon Dioxide 26 mmol/L (22-29); Chloride 104 mmol/L (98-107); Globulin 2.5 g/dL (1.3-4.6); Glucose 155 mg/dL (65-115); Magnesium 1.6 mg/dL (1.7-2.3); Osmolality Calculated 295 mOsm/kg (285-295); Potassium 3.7 mmol/L (3.5-5.1); Sodium 140 mmol/L (136-145); Thyroid Stimulating Hormone 0.19 uIU/mL (0.27-4.20); Total Bilirubin 0.6 mg/dL (0.15-1.2); Total Protein 6.2 g/dL (6.6-8.7)
[2021-02-25] MEDS: losartan 50 mg Tablet 100 MG PO (07:34)
[2021-02-25 08:55] LABS: Free T4 Free Thyroxine 1.37 ng/dL (0.82-1.77)
[2021-02-25] MEDS: morphine 4 mg/mL SDV 1 mL IVP ×2 (09:10→16:25)
[2021-02-25] MEDS: magnesium sulfate premix 2 GM/50 ML PIGGYBACK IV (09:11)
--- NOTE | 2021-02-25 11:14 | PC.OT ---
Patient was unable to participate in evaluation secondary to pain. Evaluation will be attempted again tomorrow.
--- NOTE | 2021-02-25 16:05 | P.PN_ITS ---
Subjective Subjective: Interval history: Seen this morning. Pt has TLSO brace in place. She does complain of back pain but is a little better compared to without brace. Vitals/I&O/Wt Last Vital Signs Temp 98.1 F 02/25/21 15:35 Pulse 80 02/25/21 15:35 Resp 16 02/25/21 15:35 BP 168/73 02/25/21 15:35 Pulse Ox 91 02/25/21 15:35 02/25/21 02/25/21 02/25/21 06:59 14:59 22:59 Intake Total 240 / 720 650 / 650 Output Total 680 / 680 Balance -440 / 40 650 / 650 Weight last 48 hrs Weight 99.79 kg Physical Exam Narrative: EXAM NARRATIVE: General: Alert oriented x3, patient seen sitting in recliner eating lunch. HEENT: Normocephalic, atraumatic, EOMI, breathing room air Cardio: Regular rate rhythm, normal S1-S2, no murmurs rubs gallops, Respiratory: Good bilateral air entry, no wheezes no rhonchi appreciated GI: Abdomen soft, nontender, nondistended, bowel sounds + Behavior: Appropriate and cooperative Extremities: Pulses 2+, trace edema bilaterally lower extremities, chronic venous statis changes. Back: Paraspinal tenderness present, range of motion limited secondary to pain. TLSO brace in place. No saddle anesthesia. Sensation intact 5/5 all extremities, strength 5/5. limited exam due to pain. Straight leg raise positive right side. Urinary Catheter Management^: Moyer: Cath Placed During This Visit: yes Reason for Continuing Indwelling Catheter: Other Urinary Catheter Date of Insertion: 02/24/21 Urinary Catheter Time of Insertion: 17:59 Data : 02/25/21 04:54 02/25/21 04:54 A&P Assessment and plan (1) Acute lumbar back pain: Status: Acute Qualifiers: Back pain laterality: bilateral Sciatica presence: without sciatica Qualified Code(s): M54.50 - Low back pain, unspecified (2) Asymptomatic hypertensive urgency: Status: Acute (3) Lumbar stenosis with neurogenic claudication: Status: Acute (4) Lumbar stress fracture: Status: Acute Additional A&P Information #Recent L4/L5 laminectomy Dec 16 (post op) #New compression fractures L3,L4, L5 #Lumbar stenosis with neurogenic claudication #Lumbar back pain - TLSO brace placed. - Dexamethasone 4 mg IV daily - Pain management - order morphine 2 mg IV q4 hours as needed - Will discuss with orthopedic surgery. Dr. Talbot not available till Saturday. - PT, possible rehab? custodial recommended. - place moyer catheter - complete bedrest until brace placed. #Asymptomatic hypertensive urgency - Not taking her BP pills at home - ordered labatolol and hydralazine in ER. Pressure better now. - Will restart home losartan 100 mg daily - She also got amlodipine 5 in ER. Will watch BP - Continue amlodipine 10 mg daily along with losartan 100 daily. Full Code DVT PPX: lovenox Attestations Medical Necessity Statement*: > 48 hour stay Coding Level of Care Code Acute Review Coordinator for [facility] Fwd Diagnoses Acute lumbar back pain M54.50 Back pain laterality: bilateral Sciatica presence: without sciatica Asymptomatic hypertensive urgency I16.0 Lumbar stenosis with neurogenic claudication M48.062 Lumbar stress fracture M48.46XA
[2021-02-25] MEDS: enoxaparin 40 mg/0.4 mL Syringe SUBCUT (16:26)
[2021-02-25] MEDS: oxyCODONE-APAP 10-325 mg Tablet 1 TAB PO (22:17)
[2021-02-26] VITALS (9 sets, daily range): BP systolic 135–182; BP diastolic 65–82; PULSE 68–80; RESP 17–20; TEMP 36.5–37.2; O2SAT 94–97
[2021-02-26] MEDS: oxyCODONE-APAP 10-325 mg Tablet 1 TAB PO ×3 (04:48→17:07)
[2021-02-26 06:35] LABS: Hematocrit 39.7 % (37.0-47.0); Hemoglobin 12.9 g/dL (11.5-15.3); Lymphocytes # 1.2 10^3/uL (0.8-4.8); Mean Corpuscular HGB Conc 32.5 g/dL (30.0-36.0); Mean Corpuscular Hemoglobin 29.9 pg (28.0-34.0); Mean Corpuscular Volume 91.9 fl (81-99); Mean Platelet Volume 10.8 fL (7.4-10.4); Monocytes # 0.5 10^3/uL (0.2-0.9); Monocytes % 9.3 %; Neutrophils # 4.03 10^3/uL (1.8-7.7); Neutrophils % 69.4 %; Nucleated Red Blood Cells % 0 %; Platelet Count 173 10^3/cmm (130-400); Red Blood Count 4.32 10^6/uL (4.1-5.3); Red Cell Distribution Width 14.8 % (12.1-15.1); White Blood Count 5.8 10^3/uL (4.0-10.0)
[2021-02-26 06:55] LABS: Anion Gap 13.7 (5-19); Blood Urea Nitrogen 22 mg/dL (8-23); Calcium 8.8 mg/dL (8.5-10.5); Carbon Dioxide 28 mmol/L (22-29); Chloride 103 mmol/L (98-107); Glucose 125 mg/dL (65-115); Magnesium 1.7 mg/dL (1.7-2.3); Osmolality Calculated 297 mOsm/kg (285-295); Potassium 3.7 mmol/L (3.5-5.1); Sodium 141 mmol/L (136-145)
[2021-02-26] MEDS: dexamethasone 4 mg/mL INJ IVP (07:47)
[2021-02-26] MEDS: losartan 50 mg Tablet 100 MG PO (08:17)
[2021-02-26] MEDS: amlodipine 5 mg Tablet PO (08:17)
[2021-02-26] MEDS: lactulose oral liq 20 gm/30 mL UDC PO ×2 (12:15→16:39)
--- NOTE | 2021-02-26 16:36 | PC.CHAP ---
Pastoral Care Encounter/Spiritual Assessment Type of Contact [] Declined squirrel man visit [] Patient/Family/Request visit [] Outpatient visit [] Follow-up visit [] Physician referral [] Code/Alert [XX] Routine visit [] Staff referral [] Actively dying [] Patient sleeping [] Family support [] [] Out of room [] Palliative care [] [] Receiving care in room [] Pre-surgical visit [] Trauma [] Long length of stay [] ICU visit [XX] Other: daughter was also present during the visit Relational/Emotional Strength [XX] Patient feels connected with others/family/visitors/staff [] Distress [] Loneliness/isolation [] Abandonment Spirituality of Patient [XX] Person of Minnie [XX] Attends Congregational of their Minnie [XX] Believes in Prayer [] Reads Bible or Confucianist materials [] There are Spiritual issues to be addressed Armored Service Technician Interventions [XX] Prayer [XX] Active listening [XX] Non-anxious presence [] Spiritual/emotional support [] Crisis/trauma care [] Spiritual counseling [] Bereavement support [] Provided bereavement packet [] Provided Bible/devotional materials [] Provided toy/stuffed animal, coloring book to patient or family member [] Provided Communion [] Anointing/Taylor [] Salvation [XX] Completed spiritual assessment [] Other: Impact on Illness or Injury [] Angry [] Fearful [] Anxious [] Often cries [] Exhaustion [] Unable to work [] Unable to attend jehovah's witness [XX] Unable to walk/stand [] Unable to read [] Unable to drive [] Unable to eat/drink [] Unable to sleep [] Unable to be with family [] Patient intubated [XX] Other: chronic pain Summary: Pt has spinal fractures of unknown etiology (per pt). Pt is hopeful now that the source of pain has been identified that the fractures can be treated in some manner. Pt remains optimistic and hopeful at this point. Pt has a large support system and is a believer. Time spent with patient: 20 mins
[2021-02-26] MEDS: enoxaparin 40 mg/0.4 mL Syringe SUBCUT (16:39)
--- NOTE | 2021-02-26 16:50 | P.PN_ITS ---
Subjective Subjective: Interval history: Seen this morning. Pt has TLSO brace in place. No acute events overnight. Daughter at bedside. Vitals/I&O/Wt Last Vital Signs Temp 97.7 F 02/26/21 15:58 Pulse 76 02/26/21 15:58 Resp 17 02/26/21 15:58 BP 182/74 02/26/21 15:58 Pulse Ox 94 02/26/21 15:58 02/26/21 02/26/21 02/26/21 06:59 14:59 22:59 Intake Total 60 / 950 960 / 960 Output Total 400 / 400 Balance -340 / 550 960 / 960 Physical Exam Narrative: EXAM NARRATIVE: General: Alert oriented x3, patient seen sitting in recliner eating lunch. HEENT: Normocephalic, atraumatic, EOMI, breathing room air Cardio: Regular rate rhythm, normal S1-S2, no murmurs rubs gallops, Respiratory: Good bilateral air entry, no wheezes no rhonchi appreciated GI: Abdomen soft, nontender, nondistended, bowel sounds + Behavior: Appropriate and cooperative Extremities: Pulses 2+, trace edema bilaterally lower extremities, chronic venous statis changes. Back: Paraspinal tenderness present, range of motion limited secondary to pain. TLSO brace in place. No saddle anesthesia. Sensation intact 5/5 all extremities, strength 5/5. limited exam due to pain. Straight leg raise positive right side. No change in physical exam since yesterday. Urinary Catheter Management^: Moyer: Cath Placed During This Visit: yes Reason for Continuing Indwelling Catheter: Required Immobilization for Trauma or Surgery or Anesthesia Urinary Catheter Date of Insertion: 02/24/21 Urinary Catheter Time of Insertion: 17:59 Data : 02/26/21 06:05 02/26/21 06:05 A&P Assessment and plan (1) Acute lumbar back pain: Status: Acute Qualifiers: Back pain laterality: bilateral Sciatica presence: without sciatica Qualified Code(s): M54.50 - Low back pain, unspecified (2) Asymptomatic hypertensive urgency: Status: Acute (3) Lumbar stenosis with neurogenic claudication: Status: Acute (4) Lumbar stress fracture: Status: Acute Additional A&P Information #Recent L4/L5 laminectomy Dec 16 (post op) #New compression fractures L3,L4, L5 #Lumbar stenosis with neurogenic claudication #Lumbar back pain - TLSO brace placed. - Dexamethasone 4 mg IV daily - Pain management - order morphine 2 mg IV q4 hours as needed - Will discuss with orthopedic surgery. Dr. Talbot not available till Saturday. - PT, possible rehab? long-term recommended. - place moyer catheter - complete bedrest until brace placed. - Will discuss with Dr. Talbot when here after discussion with family. #Asymptomatic hypertensive urgency - Not taking her BP pills at home - ordered labatolol and hydralazine in ER. Pressure better now. - Will restart home losartan 100 mg daily - She also got amlodipine 5 in ER. Will watch BP - Continue amlodipine 10 mg daily along with losartan 100 daily. - Will give hydralazine 25 x1 PO. Full Code DVT PPX: lovenox Attestations Medical Necessity Statement*: > 24 hr stay Coding Level of Care Code Acute Housing Quality Standard Inspector for [facility] Fwd Diagnoses Acute lumbar back pain M54.50 Back pain laterality: bilateral Sciatica presence: without sciatica Asymptomatic hypertensive urgency I16.0 Lumbar stenosis with neurogenic claudication M48.062 Lumbar stress fracture M48.46XA
[2021-02-26] MEDS: hyDRALAzine 25 mg Tablet PO (17:07)
[2021-02-26] MEDS: FUROsemide 10 mg/mL SDV 2mL 20 MG IVP (18:08)
[2021-02-27] VITALS (11 sets, daily range): BP systolic 133–178; BP diastolic 69–82; PULSE 69–84; RESP 16–20; TEMP 36.4–36.8; O2SAT 94–96
[2021-02-27] MEDS: oxyCODONE-APAP 10-325 mg Tablet 1 TAB PO ×2 (02:00→13:02)
--- NOTE | 2021-02-27 05:54 | PC.NURSE ---
SHIFT SUMMARY Has rested well tonight. Medicated with po Oxycodone X1 for c/o back pain. Says is hard to get comfortable. Wears TLSO brace at all tilmes. Good output per Janina.
[2021-02-27] MEDS: amlodipine 10 mg Tablet PO (08:45)
[2021-02-27] MEDS: losartan 50 mg Tablet 100 MG PO (08:45)
[2021-02-27] MEDS: morphine 4 mg/mL SDV 1 mL IVP (08:58)
[2021-02-27] MEDS: dexamethasone 4 mg/mL INJ IVP (08:58)
[2021-02-27] MEDS: lactulose oral liq 20 gm/30 mL UDC PO ×2 (11:10→17:38)
--- NOTE | 2021-02-27 11:32 | PC.SOCIAL ---
IMM update Pg. 2of IMM Updated and reviewed with patient and family at bedside. Copy provided.
[2021-02-27 13:54] LABS: Blood Urine 3+ (Negative); Glucose Urine UA Norm (Normal); Ketones Urine Negative (Negative); Protein Urine 2+ (Negative); Specific Gravity, Urine 1.025 (1.005-1.030); Urine Appearance Hazy (CLEAR); Urine Color Dark Yellow (Yellow); pH Urine 5 (5-7)
[2021-02-27 13:55] LABS: Add Urine Culture? No; Add Urine Microscopic? YES; Bacteria Urine 2+ /hpf; Bilirubin Urine 1+ (Negative); Leukocyte Esterase Urine 2+ (Negative); Nitrate Urine Negative (Negative); Squamous Epithelial Cell Urine 25-40 /hpf (0-5); Urobilinogen Urine 1 mg/dL (Negative); WBC Urine 15-25 /hpf (0-5)
--- NOTE | 2021-02-27 14:22 | P.CONIM_ITS ---
Providers/Reason For Consult Consulting Physician/Specialty*: hospitalist Reason for Consult*: compression fractures Attending Physician: Jesús Rasmey Primary Care Provider: Eduin Zeng MD History of Present Illness History of Present Illness Mary Ellen Benjamin is a 86 year old female Review of Systems General: Reports: 10 or more systems reviewed and unremarkable except in HPI and below Const: Denies: fever(s), chills or fatigue ENMT: Denies: throat pain, ear or mastoid pain, nasal discharge or nasal congestion Card: Denies: syncope Resp: Denies: dyspnea, productive cough or non-productive cough GI: Denies: abdominal pain, nausea, vomiting, fecal incontinence or change in bowel habits : Denies: dysuria, urinary urgency or hematuria Skin/Breast: Denies: rash or pruritus Neuro: Denies: difficulty walking Meds/Allergies Home Medications and Allergies Home Medications Medication Instructions Recorded Confirmed Last Taken Type losartan 100 mg PO DAILY 02/24/21 02/24/21 02/24/21 History oxycodone-acetaminophen 5 mg-325 1 - 2 tab PO Q6H PRN 7 Days #40 tab 02/27/21 Unknown Rx mg tablet Allergies Allergy/AdvReac Type Severity Reaction Status Date / Time aspirin Allergy rash Verified 02/24/21 12:39 Sulfa (Sulfonamide Allergy hives Verified 02/24/21 12:39 Antibiotics) Current Medications Current Medications Generic Name Dose Route Start Last Admin Trade Name Freq PRN Reason Stop Dose Admin Amlodipine Besylate 10 mg 02/27/21 09:00 02/27/21 08:45 Amlodipine 10 Mg Tablet PO 10 mg DAILY LYNDSEY Administration Dexamethasone 4 mg 02/26/21 09:00 02/27/21 08:58 Dexamethasone 4 Mg/Ml Inj IVP 4 mg DAILY LYNDSEY Administration Enoxaparin Sodium 40 mg 02/24/21 17:15 02/26/21 16:39 Enoxaparin 40 Mg/0.4 Ml Syringe SUBCUT 40 mg Q24H LYNDSEY Administration Lactulose 20 gm 02/26/21 11:30 02/27/21 11:10 Lactulose Oral Liq 20 Gm/30 Ml Udc PO 20 gm Q6H LYNDSEY Administration Losartan Potassium 100 mg 02/25/21 09:00 02/27/21 08:45 Losartan 50 Mg Tablet PO 100 mg DAILY LYNDSEY Administration Morphine Sulfate 4 mg 02/24/21 19:32 12/27/21 08:58 Morphine 4 Mg/Ml Sdv 1 Ml IVP 4 mg Q4H PRN Administration SEVERE PAIN Oxycodone/Acetaminophen 1 tab 02/24/21 19:32 02/27/21 13:02 Oxycodone-Apap 10-325 Mg Tablet PO 1 tab Q6H PRN Administration MODERATE PAIN PFSH Acute PFSH: Medical History History of breast cancer History of malignant melanoma History of melanoma History of nonmelanoma skin cancer HTN (hypertension) Family History Other Hypertension Social History Smoking and tobacco status: never smoked History of recent travel: No Vitals/I&O/Wt Last Vital Signs Temp 98.2 F 02/27/21 12:00 Pulse 82 02/27/21 12:00 Resp 18 02/27/21 13:02 BP 134/69 02/27/21 12:00 Pulse Ox 94 02/27/21 13:02 02/26/21 02/27/21 02/27/21 22:59 06:59 14:59 Intake Total 600 / 1560 300 / 1860 360 / 360 Output Total 1900 / 1900 300 / 300 Balance 600 / 1560 -1600 / -40 60 / 60 Physical Exam Narrative: EXAM NARRATIVE: CONSTITUTIONAL: The patient is a normal appearing [] in no apparent distress. GENERAL: Patient in no acute distress. CARDIAC: Regular rate and rhythm. CHEST: Normal inspiratory effort, normal respiratory rate. ABDOMEN: Soft and nontender. SKIN: Clear, warm and intact. NEURO?PSYCH: The patient is alert and oriented to person, place and time. Sensorv /SILT Motor StrengthShoulder abduction C5 5/5Wrist extension C6 5/5Elbow extension C7 5/5Hand Machine Operator Cane Cutter C8 5/5Finger abduction T15/5 Radial/ Ulnar/ Median n intact LowerSensory (SILT)Motor StrengthHin flexion L2/3Ant/inner thigh 5/5Hip adduction L2/3 5/5Knee extension L4 Lat thigh, 5/5Toe dorsiflexion L5 5/5Ankle dorsiflexion L5/ N77Jpllcdc flexion S1 5/5 DTRBleeps 2+Triceps 2+Brachioradialis 2+Patellar 2+Achilles 2+ MUSCULOSKELETAL: [] UPPEREXTREMITIES: The patient had full active ROM in fingers, wrist, elbow, and shoulder. The patient demonstrated ability to fully flex/extend/abduct/adduct fingers, make ok sign, cross 2nd/3rd digits, extend 1st digit fully.. Radial pulse 2+, CR<2 seconds. LOWER EXTREMITIES: Pt has full, active ROM of toes, ankle, knee, and hip. Dorsalis pedis/posterior tibialis pulses 2+, CR<2 seconds. SPINE: Skin warm, dry, intact. Urinary Catheter Management^: Roa: Cath Placed During This Visit: yes, but has since been removed by the nurse Reason for Continuing Indwelling Catheter: Required Immobilization for Trauma or Surgery or Anesthesia Urinary Catheter Date of Insertion: 02/24/21 Urinary Catheter Time of Insertion: 17:59 Date Urinary Catheter Removed: 02/27/21 Time Urinary Catheter Discontinued: 12:47 A&P Assessment and plan (1) Compression fracture: L3, L4, and L5 osteoporotic wedge compression fracture. Unknown trauma. patient has very little improvement of symptoms over the last several weeks. She has had multiple visitits to the OR. She is also having left knee pain from osteoarthritis. plan is to do Kyphoplasty of L3, L4 and L5 as well as a steroid injection of the left knee Status: Acute Consult Attestations Medical Necessity Statement: per primary service Coding Level of Care Code Acute Return Clerk for Isai Estrella Diagnoses Compression fracture
--- NOTE | 2021-02-27 16:22 | P.PN_ITS ---
Subjective Subjective: Interval history: Currently the patient is doing okay. Denies any uncontrolled pain in the back. Comfortably sitting in the chair with the brace. She reports chronic left knee pain and locking sensation. The knee is chronically swollen. Medications: Reviewed: Yes Medication Review Details: Generic Name Dose Route Start Last Admin Trade Name Princess PRN Reason Stop Dose Admin Amlodipine Besylat e 10 mg 02/27/21 09:00 02/27/21 08:45 Amlodipine 10 Mg Tablet PO 10 mg DAILY LYNDSEY Administration Dexamethasone 4 mg 02/26/21 09:00 02/27/21 08:58 Dexamethasone 4 Mg/Ml Inj IVP 4 mg DAILY LYNDSEY Administration Enoxaparin Sodium 40 mg 02/24/21 17:15 02/26/21 16:39 Enoxaparin 40 Mg /0.4 Ml Syringe SUBCUT 40 mg Q24H LYNDSEY Administration Lactulose 20 gm 02/26/21 11:30 02/27/21 11:10 Lactulose Oral L iq 20 Gm/30 Ml Udc PO 20 gm Q6H LYNDSEY Administration Losartan Potassium 100 mg 02/25/21 09:00 02/27/21 08:45 Losartan 50 Mg T ablet PO 100 mg DAILY LYNDSEY Administration Vitals/I&O/Wt Last Vital Signs Temp 97.7 F 02/27/21 15:35 Pulse 84 02/27/21 15:35 Resp 18 02/27/21 15:35 BP 178/82 02/27/21 15:35 Pulse Ox 96 02/27/21 15:35 02/27/21 02/27/21 02/27/21 06:59 14:59 22:59 Intake Total 300 / 1860 360 / 360 Output Total 1900 / 1900 300 / 300 Balance -1600 / -40 60 / 60 Physical Exam 2 Narrative: EXAM NARRATIVE: Awake alert oriented. No acute distress. Responses are adequate. Skin is warm and dry. Moist mucous membranes. No JVD Lungs are clear bilaterally. No respiratory distress Heart S1, S2, regular Abdomen soft, nontender, bowel sounds are present Extremities bilateral chronic venous stasis changes, chronic edema, chronic swelling in the knees without associated hyperemia. Passive range of motion's is within normal range. No peripheral cyanosis. No calf tenderness bilaterally Moves all extremities. Eyes PERRL, extraocular muscles are intact Urinary Catheter Management^: Roa: Cath Placed During This Visit: yes, but has since been removed by the nurse Reason for Continuing Indwelling Catheter: Required Immobilization for Trauma or Surgery or Anesthesia Urinary Catheter Date of Insertion: 02/24/21 Urinary Catheter Time of Insertion: 17:59 Date Urinary Catheter Removed: 02/27/21 Time Urinary Catheter Discontinued: 12:47 Data : 02/26/21 06:05 02/26/21 06:05 A&P Additional A&P Information New L3, L4, L5 compression fractures. Continue pain management. TLSO brace. Appreciate Dr. Talbot's input. The patient will go for kyphoplasty. We will continue PT OT efforts. Left knee chronic arthritis. Steroid injection by Dr. Talbot. UTI. Will start Rocephin and will check UCS. Hypertension. Improved control. Continue home medications. Continue as needed coverage. DVT prophylaxis. She is on Lovenox. We will hold it due to upcoming procedure. The plan of care was discussed with the patient and her family. They verbalized understanding and agreement Attestations Medical Necessity Statement*: The plan of care as described above requires that she remains hospitalized. Coding Level of Care Code Acute Manager Print for Isai Estrella
[2021-02-27] MEDS: morphine 4 mg/mL SDV 1 mL 2 MG IVP (20:29)
[2021-02-28] VITALS (9 sets, daily range): BP systolic 147–171; BP diastolic 64–74; PULSE 62–83; RESP 14–18; TEMP 36.5–36.7; O2SAT 93–99
[2021-02-28] MEDS: morphine 4 mg/mL SDV 1 mL 2 MG IVP ×2 (01:05→21:55)
[2021-02-28] MEDS: lactulose oral liq 20 gm/30 mL UDC PO ×4 (05:36→23:24)
[2021-02-28] MEDS: TRAMadol 50 mg Tablet PO ×2 (05:36→12:46)
--- NOTE | 2021-02-28 05:39 | PC.NURSE ---
SHIFT SUMMARY Has been up to [facility] several times through night. Moving around makes back pain worse. Wearing brace at all times. Says is hard to get comfortable with it on. Urine is quite odorous but says the burning has subsided. Says she is trying to drink water. Has been medicated for pain with IV Morphine X2 and po Tramadol X1. Says the Morphine helps her get some rest and then sh wants to take the po during the day time. No BM tonight. Did not want the Lactulose at 2330 but did take it this morning. Says is ready to get surgery and is hoping it will help with her pain
[2021-02-28 06:34] LABS: Albumin Level 3.4 g/dL (3.5-5.2); Anion Gap 14.8 (5-19); Blood Urea Nitrogen 20 mg/dL (8-23); Calcium 8.8 mg/dL (8.5-10.5); Carbon Dioxide 26 mmol/L (22-29); Chloride 104 mmol/L (98-107); Glucose 120 mg/dL (65-115); Phosphorus 2.8 mg/dL (2.5-4.5); Potassium 3.8 mmol/L (3.5-5.1); Sodium 141 mmol/L (136-145)
[2021-02-28 06:53] LABS: Magnesium 1.5 mg/dL (1.7-2.3)
[2021-02-28] MEDS: cefTRIAXone 1,000 MG in sodium chloride 0.9% (plus) 50 ML 100 MG IV (07:49)
[2021-02-28] MEDS: dexamethasone 4 mg/mL INJ IVP (07:49)
[2021-02-28] MEDS: losartan 50 mg Tablet 100 MG PO (07:50)
[2021-02-28] MEDS: amlodipine 10 mg Tablet PO (07:50)
--- NOTE | 2021-02-28 07:58 | P.PN_ITS ---
Subjective Subjective: Interval history: Patient continues to have low back pain. She is wearing the TLSO brace. Vitals/I&O/Wt Last Vital Signs Temp 97.9 F 02/28/21 07:21 Pulse 77 02/28/21 07:21 Resp 14 02/28/21 07:21 BP 167/73 02/28/21 07:21 Pulse Ox 96 02/28/21 07:21 02/27/21 02/28/21 02/28/21 22:59 06:59 14:59 Intake Total 800 / 1160 240 / 1400 Output Total 500 / 800 625 / 1425 Balance 300 / 360 -385 / -25 Physical Exam Narrative: EXAM NARRATIVE: Alert and orient x3 has good general appearance normal normal affect. Mild acute distress. She has a TLSO brace on in bed. She has palpable pain over the low back region. She is able to move all 4 extremities hands and feet are warm to the touch with good cap refill good strength in all extremities. Normal station light touch. Calves are supple no medial thigh tenderness. Const: COMMON NORMALS: patient oriented x3 HENMT: COMMON NORMALS: normocephalic HEAD & SCALP: normocephalic Resp: COMMON NORMALS: normal respiratory effort Cardio: COMMON NORMALS: regular rate and regular rhythm RATE: regular rate RHYTHM: regular rhythm GI: COMMON NORMALS: Soft to palpation PALPATION: Yes Soft to palpation : COMMON NORMALS: Yes no CVA tenderness BLADDER/KIDNEY EXAM: Yes no CVA tenderness Back/Pelvis: COMMON NORMALS: no CVA tenderness Neuro: COMMON NORMALS: patient oriented x3 Psych: COMMON NORMALS: cooperative Urinary Catheter Management^: Roa: Cath Placed During This Visit: yes, but has since been removed by the nurse Reason for Continuing Indwelling Catheter: Required Immobilization for Trauma or Surgery or Anesthesia Urinary Catheter Date of Insertion: 02/24/21 Urinary Catheter Time of Insertion: 17:59 Date Urinary Catheter Removed: 02/27/21 Time Urinary Catheter Discontinued: 12:47 Data : 02/26/21 06:05 02/28/21 05:23 A&P Assessment and plan (1) Lumbar compression fracture: Discussed treatment options involve TLSO brace versus kyphoplasty procedure from L3, L4, L5 vertebral bodies. She would like to proceed with kyphoplasty. We will keep her n.p.o. after midnight. Discussed the risks and benefits of the procedure compartment tube infection nerve damage continued back pain need for surgery X anesthesia she understands his risk which proceed. Status: Acute Attestations Medical Necessity Statement*: surgery 03/01/21 Coding Level of Care Code Acute [employer] Runners for Isai Estrella Diagnoses Lumbar compression fracture S32.000A
[2021-02-28] MEDS: magnesium oxide 400 mg tablet PO ×2 (10:52→16:45)
--- NOTE | 2021-02-28 14:03 | P.PN_ITS ---
Subjective Subjective: Interval history: Doing well. Denies any active complaints. No uncontrolled pain. Denies weakness in the legs, any problems with urination. No fever or chills. Medications: Reviewed: Yes Medication Review Details: Generic Name Dose Route Start Last Admin Trade Name Darynq PRN Reason Stop Dose Admin Amlodipine Besylat e 10 mg 02/27/21 09:00 02/28/21 07:50 Amlodipine 10 Mg Tablet PO 10 mg DAILY LYNDSEY Administration Dexamethasone 4 mg 02/26/21 09:00 02/28/21 07:49 Dexamethasone 4 Mg/Ml Inj IVP 4 mg DAILY LYNDSEY Administration Ceftriaxone Sodium 1,000 mg/ 50 mls @ 100 mls/ hr 02/28/21 09:00 02/28/21 08:39 Sodium Chloride IV Infused DAILY LYNDSEY Infusion Protocol Lactulose 20 gm 02/26/21 11:30 02/28/21 12:02 Lactulose Oral L iq 20 Gm/30 Ml Udc PO 20 gm Q6H LYNDSEY Administration Losartan Potassium 100 mg 02/25/21 09:00 02/28/21 07:50 Losartan 50 Mg T ablet PO 100 mg DAILY LYNDSEY Administration Magnesium Oxide 400 mg 02/28/21 09:00 02/28/21 10:52 Magnesium Oxide 400 Mg Tablet PO 400 mg BID LYNDSEY Administration Morphine Sulfate 2 mg 02/27/21 16:22 02/28/21 01:05 Morphine 4 Mg/Ml Sdv 1 Ml IVP 2 mg Q4H PRN Administration SEVERE PAIN Tramadol HCl 50 mg 02/27/21 16:21 02/28/21 12:46 Tramadol 50 Mg T ablet PO 50 mg Q6H PRN Administration MODERATE PAIN Vitals/I&O/Wt Last Vital Signs Temp 98 F 02/28/21 12:00 Pulse 83 02/28/21 12:00 Resp 16 02/28/21 12:00 BP 150/64 02/28/21 12:00 Pulse Ox 93 02/28/21 12:00 02/27/21 02/28/21 02/28/21 22:59 06:59 14:59 Intake Total 800 / 1160 240 / 1400 410 / 410 Output Total 500 / 800 625 / 1425 Balance 300 / 360 -385 / -25 410 / 410 Physical Exam Narrative: EXAM NARRATIVE: Awake alert oriented. No acute distress. R esponses are adequate. Skin is warm and dry. Moist mucous membranes. No JVD Lungs are clear bilaterally. No respiratory distress Heart S1, S2, regular Abdomen soft, nontender, bowel sounds are present Extremities bilateral chronic venous stasis changes, chronic edema, chronic swelling in the knees without associated hyperemia. Passive range of motion's is within normal range. No peripheral cyanosis. No calf tenderness bilaterally Moves all extremities. Eyes PERRL, extraocular muscles are intact Urinary Catheter Management^: Roa: Cath Placed During This Visit: yes, but has since been removed by the nurse Reason for Continuing Indwelling Catheter: Required Immobilization for Trauma or Surgery or Anesthesia Urinary Catheter Date of Insertion: 02/24/21 Urinary Catheter Time of Insertion: 17:59 Date Urinary Catheter Removed: 02/27/21 Time Urinary Catheter Discontinued: 12:47 Data : 02/26/21 06:05 02/28/21 05:23 Micro: Microbiology 02/27/21 13:15 Urine Culture - Preliminary Urine,Voided Gram Negative Rods Gram Negative Rods#2 A&P Assessment and plan (1) Acute lumbar back pain: Status: Acute Qualifiers: Back pain laterality: bilateral Sciatica presence: without sciatica Qualified Code(s): M54.50 - Low back pain, unspecified (2) Asymptomatic hypertensive urgency: Status: Acute (3) Lumbar stenosis with neurogenic claudication: Status: Acute (4) Lumbar stress fracture: Status: Acute Additional A&P Information New L3, L4, L5 compression fractures. Continue pain management. TLSO brace. Appreciate Dr. Talbot's input. The patient will go for kyphoplasty tomorrow. We will continue PT OT efforts. Left knee chronic arthritis. Steroid injection by Dr. Talbot. UTI. Rocephin. Cultures are pending. Hypertension. Improved control. Continue home medications. Continue as needed coverage. DVT prophylaxis. Lovenox is on hold due to upcoming procedure. The plan of care was discussed with the patient. They verbalized understanding and agreement Attestations Medical Necessity Statement*: Waiting for the procedure. Coding Level of Care Code Acute Die Drawing Checker for [employer] Fwd Diagnoses Acute lumbar back pain M54.50 Back pain laterality: bilateral Sciatica presence: without sciatica Asymptomatic hypertensive urgency I16.0 Lumbar stenosis with neurogenic claudication M48.062 Lumbar stress fracture M48.46XA
[2021-02-28] MEDS: ondansetron 2 mg/ML SDV 2 mL 4 MG IVP (17:21)
[2021-03-01] VITALS (16 sets, daily range): BP systolic 130–195; BP diastolic 61–88; PULSE 63–95; RESP 12–18; TEMP 36.1–37.1; O2SAT 90–98
--- NOTE | 2021-03-01 | SCC_ITS ---
Procedure Done: 1. L2 Kyphoplasty 2. L3 Kyphoplasty 3. L4 Kyphoplasty 4. L5 Kyphoplasty 5. injection of left knee with 80 mg steroid, marcain, lidocain 36.7 seconds of fluoroscopic guidance, for a cumulative dose of 121.58 mGy and 223.21 mGy , was provided to Dr. Talbot by the radiology department. C-arm images of the lumbar spine were saved for the patient's permanent record. [facility]
[2021-03-01] MEDS: sodium chloride 0.9% 1,000 ML 30 ML IV (06:33)
--- NOTE | 2021-03-01 06:33 | SC_ITS ---
WS: [id number] C-arm fluoroscopy of the lumbar spine for kyphoplasty, 03/01/2021 Clinical Data: Surgical procedure Comparison: None. Findings: Dr. Talbot performed kyphoplasty in the vertebral bodies L2-L5. SC/C-arm FL for Kyphoplasty Impression: Kyphoplasty of the lumbar vertebral bodies
--- NOTE | 2021-03-01 06:48 | W.PM.OPSUD ---
Surgery/Procedure H&P Update DATE OF PROCEDURE: March 01, 2021 DATE H&P PERFORMED: 02/27/21 H&P UPDATE INFORMATION: I have reviewed H&P completed within last 30 days, I have examined patient prior to procedure and No changes to prior documentation PREOP DIAGNOSIS: L3,L4,L5 compression fracture PLANNED PROCEDURE: Operation Date: 03/01/21 07:00 Proposed Procedures p Kyphoplasty L3,L4,L5(Not Applicable) - Chepe Talbot DO s left knee injection(Left) - Chepe Talbot DO
[2021-03-01] MEDS: scopolamine 1.5 Patch 1 PATCH TRANSDERMA (06:57)
[2021-03-01] MEDS: cefTRIAXone 1,000 MG in sodium chloride 0.9% (plus) 50 ML 100 MG IV (06:58)
--- NOTE | 2021-03-01 07:00 | P.ANESASSM_ITS ---
Pre-Anesthetic Assessment Pre-Anesthetic Assessment: Height/Weight: Height 1.6 m Weight 99.79 kg Temp Pulse Resp BP Pulse Ox 98.5 F 75 18 195/83 96 03/01/21 06:18 03/01/21 06:18 03/01/21 06:18 03/01/21 06:18 03/01/21 06:18 Preop Diagnosis: L3,L4,L5 compression fracture Proposed Procedure: Operation Date: 03/01/21 07:00 Proposed Procedures p Kyphoplasty L3,L4,L5(Not Applicable) - Chepe H Dahiana, DO s left knee injection(Left) - Chepe H Dahiana, DO Was Beta Cheko taken within 24 hours: N/A Was Clonidine taken within 24 hours: N/A Social: Social History: No alcohol and No tobacco Exam: Pre-Anes Outpt Exam: alert, oriented x 3, clear to auscultation bilaterally and regular rate & rhythm Airway: Submandibular: WNL Cervical ROM: WNL MP: 2 Dentition: False CV/HEM: CV/HEM: HTN Metabolic: Metabolic: Morbid obesity Musc/skel: Musc/skel: Lower Back Pain Anesthetic Plan: ASA status: 3 Anesthesia: General Risk of > 500 ml blood loss (7ml/kg in children): No Meds/Allergies Current Medications: Current Medications Generic Name Dose Route Start Last Admin Trade Name Freq PRN Reason Stop Dose Admin Amlodipine Besylat e 10 mg 02/27/21 09:00 02/28/21 07:50 Amlodipine 10 Mg Tablet PO 10 mg DAILY LYNDSEY Administration Dexamethasone 4 mg 02/26/21 09:00 02/28/21 07:49 Dexamethasone 4 Mg/Ml Inj IVP 4 mg DAILY LYNDSEY Administration Ceftriaxone Sodium 1,000 mg/ 50 mls @ 100 mls/ hr 02/28/21 09:00 02/28/21 08:39 Sodium Chloride IV Infused DAILY LYNDSEY Infusion Protocol Sodium Chloride 1,000 mls @ 30 ml s/hr 03/01/21 06:30 03/01/21 06:33 Sodium Chloride 0.9% IV 30 mls/hr .Q24H LYNDSEY Administration Lactulose 20 gm 02/26/21 11:30 03/01/21 05:18 Lactulose Oral L iq 20 Gm/30 Ml Udc PO Not Given Q6H LYNDSEY Losartan Potassium 100 mg 02/25/21 09:00 02/28/21 07:50 Losartan 50 Mg T ablet PO 100 mg DAILY LYNDSEY Administration Magnesium Oxide 400 mg 02/28/21 09:00 02/28/21 16:45 Magnesium Oxide 400 Mg Tablet PO 400 mg BID LYNDSEY Administration Morphine Sulfate 2 mg 02/27/21 16:22 02/28/21 21:55 Morphine 4 Mg/Ml Sdv 1 Ml IVP 2 mg Q4H PRN Administration SEVERE PAIN Ondansetron HCl 4 mg 02/24/21 19:32 02/28/21 17:21 Ondansetron 2 Mg /Ml Sdv 2 Ml IVP 4 mg Q8H PRN Administration vomiting, or N/V if npo Scopolamine 1 patch 03/01/21 06:44 03/01/21 06:57 Scopolamine 1.5 Patch TRANSDERMA 1 patch ONCE PRN Administration NAUSEA AND VOMITI NG Tramadol HCl 50 mg 02/27/21 16:21 02/28/21 12:46 Tramadol 50 Mg T ablet PO 50 mg Q6H PRN Administration MODERATE PAIN PFSH Anesthesia PFSH: Medical History History of breast cancer History of malignant melanoma History of melanoma History of nonmelanoma skin cancer HTN (hypertension) Family History Other Hypertension Social History Smoking and tobacco status: never smoked History of recent travel: No Data Anesthesia CBC & Chem 7: 02/26/21 06:05 02/28/21 05:23 Other Labs: Laboratory Results - last 48 hr 02/27/21 02/28/21 02/28/21 13:15 05:23 05:23 Sodium 141 Potassium 3.8 Chloride 104 Carbon Dioxide 26 Anion Gap 14.8 BUN 20 Creatinine 0.6 GFR Calculation Not Reportable Glucose 120 H Calcium 8.8 Phosphorus 2.8 Magnesium 1.5 L Albumin 3.4 L Urine Color Dark yellow Urine Appearance Hazy A Urine pH 5 Ur Specific [place] 1.025 Urine Protein 2+ H Urine Glucose (UA) Norm Urine Ketones Negative Urine Blood 3+ H Urine Nitrate Negative Urine Bilirubin 1+ H Urine Urobilinogen 1 H Ur Leukocyte Esterase 2+ H Urine RBC 10-15 H Urine WBC 15-25 H Ur Squamous Epith Cells 25-40 H Amorphous Sediment Not Reportable Urine Bacteria 2+ H Micro: Microbiology 02/27/21 13:15 Urine Culture - Preliminary Urine,Voided Gram Negative Rods Gram Negative Rods#2 Cardiac Studies: No Data to Display
[2021-03-01] MEDS: lidocaine 1% INJ 20 mL INJECTION (07:13)
[2021-03-01] MEDS: methylPREDNISolone (DEPO) 80 MG/ML INJ 1 mL IM (07:13)
[2021-03-01 07:30] LABS: Magnesium 1.7 mg/dL (1.7-2.3)
[2021-03-01 07:31] LABS: Albumin Level 3.9 g/dL (3.5-5.2); Anion Gap 14.1 (5-19); Blood Urea Nitrogen 16 mg/dL (8-23); Calcium 9.4 mg/dL (8.5-10.5); Carbon Dioxide 30 mmol/L (22-29); Chloride 102 mmol/L (98-107); Glucose 101 mg/dL (65-115); Phosphorus 3.1 mg/dL (2.5-4.5); Potassium 4.1 mmol/L (3.5-5.1); Sodium 142 mmol/L (136-145)
[2021-03-01] MEDS: iohexol 300 mg/mL 50 mL Btl (OR ONLY) XX (07:56)
--- NOTE | 2021-03-01 08:35 | PM.OP ---
Operative Report Date of procedure: March 01, 2021 Pre-op Diagnosis: L2,L3,L4,L5 osteoporotic pathologic wedge compression fracture;Left knee OA Pre-op Diagnosis: There was no history of trauma the fractures were a result of osteoporosis Post-op diagnosis: same Procedure Done: 1. L2 Kyphoplasty 2. L3 Kyphoplasty 3. L4 Kyphoplasty 4. L5 Kyphoplasty 5. injection of left knee with 80 mg steroid, marcain, lidocain Surgeon: Chepe Talbot Anesthesia: General Estimated blood loss (mL): 25 Condition: stable Disposition: PACU Procedure: 1. L2 Kyphoplasty 2. L3 Kyphoplasty 3. L4 Kyphoplasty 4. L5 Kyphoplasty 5. injection of left knee with 80 mgsteroid, marcain, lidocain Patient was brought to the operative suite after undergoing anesthesia patient had the left knee prepped. And it was injected with 80 mg of Depo-Medrol. Along with Marcaine and lidocaine. This was done under sterile technique. Next patient was flipped over into the prone position all areas of impingement were well-padded. Patient was then prepped and draped in normal sterile fashion. Attention was first brought to the L2 level. It was noted that she had a new compression fracture even since her last MRI. Using AP and lateral fluoroscopy the skin screws made lateral to the pedicle. The awl was inserted. Followed by the drill followed by the balloon. Next attention was brought to the L3 level. Again the scans was made lateral to the pedicle the awl was inserted followed by the drill followed by the balloon. The L4 level was then next. This was done using the knife lateral of the pedicle on the AP view and then the awl was inserted followed by the drill followed by the balloon. And then the L5 level was next skin screws made lateral the pedicle the awl was inserted followed by the drill followed by the balloon. Next attention was brought to placing the cement. The cement was placed using AP and lateral fluoroscopy to get good fill of the vertebral body. This was done at L2-L3-L4 and L5. Once the cement was completed. AP lateral fluoroscopy ensured that the cement was in appropriate position. Wounds were irrigated closed with nylon suture and sterile dressings were applied.
--- NOTE | 2021-03-01 08:41 | P.PCN_ITS ---
PACU note PACU note: VSS, Good respiratory effort, report to ORAL SURGERY TECHNICIAN Post-Anesthesia Exam: awake
--- NOTE | 2021-03-01 08:41 | PM.PACU ---
PACU note PACU note: VSS, Good respiratory effort, report to RET[employer] AREA SUPERVISOR Post-Anesthesia Exam: awake
--- NOTE | 2021-03-01 08:45 | PC.NURSE ---
pt arrived in recovery oral airway in place and breathing room air pt awake/sedated responding to questions about pain dressings from procedure are 4x4 and tegaderm pt resting comfortably nurse is calling the floor to give report
[2021-03-01] MEDS: HYDROcodone-acetaminophen 5-325 mg Tablet PO ×2 (09:25→19:43)
[2021-03-01 11:22] LABS: Glucose Point of Care 162 mg/dL (70-110)
--- NOTE | 2021-03-01 12:20 | PC.OT ---
OT TREATMENT HELD TODAY DUE TO SURGERY THIS MORNING.
[2021-03-01] MEDS: amlodipine 10 mg Tablet PO (12:52)
[2021-03-01] MEDS: docusate sodium 100 mg Capsule PO ×2 (12:52→17:04)
[2021-03-01] MEDS: dexamethasone 4 mg/mL INJ IVP (12:52)
[2021-03-01] MEDS: lactated ringers 1,000 ML 90 ML IV (12:52)
[2021-03-01] MEDS: ketorolac 30 mg/mL INJ IVP (12:52)
[2021-03-01] MEDS: losartan 50 mg Tablet 100 MG PO (12:53)
--- NOTE | 2021-03-01 13:12 | P.PN_ITS ---
Subjective Subjective: Interval history: Underwent vertebroplasty today. Reports back pain. No weakness or problems with urination. No fever or chills. No chest pain, shortness of breath, cough, palpitations. Medications: Reviewed: Yes Medication Review Details: Generic Name Dose Route Start Last Admin Trade Name Freq PRN Reason Stop Dose Admin Hydrocodone Bitart /Acetaminophen 1 - 2 tab 03/01/21 08:32 03/01/21 09:25 Hydrocodone-Acet aminophen 5-325 Mg Tablet PO 2 tab Q4H PRN Administration MODERATE TO SEVER E PAIN Amlodipine Besylat e 10 mg 02/27/21 09:00 03/01/21 12:52 Amlodipine 10 Mg Tablet PO 10 mg DAILY LYNDSEY Administration Dexamethasone 4 mg 02/26/21 09:00 03/01/21 12:52 Dexamethasone 4 Mg/Ml Inj IVP 4 mg DAILY LYNDSEY Administration Docusate Sodium 100 mg 03/01/21 09:00 03/01/21 12:52 Docusate Sodium 100 Mg Capsule PO 100 mg BID LYNDSEY Administration Ceftriaxone Sodium 1,000 mg/ 50 mls @ 100 mls/ hr 02/28/21 09:00 03/01/21 07:44 Sodium Chloride IV Infused DAILY LYNDSEY Infusion Protocol Sodium Chloride 1,000 mls @ 30 ml s/hr 03/01/21 06:30 03/01/21 06:33 Sodium Chloride 0.9% IV 30 mls/hr .Q24H LYNDSEY Administration Lactated Ringer's 1,000 mls @ 90 ml s/hr 03/01/21 08:45 03/01/21 12:52 Lactated Ringers IV 90 mls/hr .Q11H7M LYNDSEY Administration Ketorolac Trometha mine 30 mg 03/01/21 08:32 03/01/21 12:52 Ketorolac 30 Mg/ Ml Inj IVP 30 mg Q6H PRN Administration BREAKTHROUGH PAIN Lactulose 20 gm 02/26/21 11:30 03/01/21 05:18 Lactulose Oral L iq 20 Gm/30 Ml Udc PO Not Given Q6H LYNDSEY Losartan Potassium 100 mg 02/25/21 09:00 03/01/21 12:53 Losartan 50 Mg T ablet PO 100 mg DAILY LYNDSEY Administration Magnesium Oxide 400 mg 02/28/21 09:00 02/28/21 16:45 Magnesium Oxide 400 Mg Tablet PO 400 mg BID LYNDSEY Administration Morphine Sulfate 2 mg 02/27/21 16:22 02/28/21 21:55 Morphine 4 Mg/Ml Sdv 1 Ml IVP 2 mg Q4H PRN Administration SEVERE PAIN Ondansetron HCl 4 mg 02/24/21 19:32 02/28/21 17:21 Ondansetron 2 Mg /Ml Sdv 2 Ml IVP 4 mg Q8H PRN Administration vomiting, or N/V if npo Scopolamine 1 patch 03/01/21 06:44 03/01/21 06:57 Scopolamine 1.5 Patch TRANSDERMA 1 patch ONCE PRN Administration NAUSEA AND VOMITI NG Tramadol HCl 50 mg 02/27/21 16:21 02/28/21 12:46 Tramadol 50 Mg T ablet PO 50 mg Q6H PRN Administration MODERATE PAIN Vitals/I&O/Wt Last Vital Signs Temp 98.7 F 03/01/21 11:13 Pulse 63 03/01/21 11:13 Resp 17 03/01/21 11:13 BP 147/70 03/01/21 12:53 Pulse Ox 93 03/01/21 11:13 02/28/21 03/01/21 03/01/21 22:59 06:59 14:59 Intake Total 400 / 810 240 / 1050 550 / 550 Output Total 200 / 200 180 / 380 5 / 5 Balance 200 / 610 60 / 670 545 / 545 Physical Exam Narrative: EXAM NARRATIVE: Awake alert oriented. No acute distress. Responses are adequate. Skin is warm and dry. Moist mucous membranes. No JVD Lungs are clear bilaterally. No respiratory distress Heart S1, S2, regular Abdomen soft, nontender, bowel sounds are present Extremities bilateral chronic venous stasis changes, chronic edema, chronic swelling in the knees without associated hyperemia. Passive range of motion's is within normal range. No peripheral cyanosis. No calf tenderness bilaterally Moves all extremities. Eyes PERRL, extraocular muscles are intact Urinary Catheter Management^: Roa: Cath Placed During This Visit: yes, but has since been removed by the nurse Reason for Continuing Indwelling Catheter: Required Immobilization for Trauma or Surgery or Anesthesia Urinary Catheter Date of Insertion: 02/24/21 Urinary Catheter Time of Insertion: 17:59 Date Urinary Catheter Removed: 02/27/21 Time Urinary Catheter Discontinued: 12:47 Data : 02/26/21 06:05 12/29/21 06:06 Micro: Microbiology 02/27/21 13:15 Urine Culture - Preliminary Urine,Voided Gram Negative Rods Gram Negative Rods#2 A&P Assessment and plan (1) Acute lumbar back pain: Status: Acute Qualifiers: Back pain laterality: bilateral Sciatica presence: without sciatica Qualified Code(s): M54.50 - Low back pain, unspecified (2) Asymptomatic hypertensive urgency: Status: Acute (3) Lumbar stenosis with neurogenic claudication: Status: Acute (4) Lumbar stress fracture: Status: Acute Additional A&P Information New L3, L4, L5 compression fractures. Status post kyphoplasty by Dr. Talbot. Continue pain management. TLSO brace. Appreciate Dr. Talbot's input. We will continue PT OT efforts. We will assess her discharge needs. Possible long term facility placement Left knee chronic arthritis. Steroid injection by Dr. Talbot. UTI. Rocephin. Preliminary report is consistent with gram-negative rods. Hypertension. Continue home medications and as needed coverage DVT prophylaxis. Lovenox is on hold due to procedure. The plan of care was discussed with the patient. They verbalized understanding and agreement Attestations Medical Necessity Statement*: Possible discharge to long term facility tomorrow if the pain is well controlled Coding Level of Care Code Acute Caponizer for [facility] Diagnoses Acute lumbar back pain M54.50 Back pain laterality: bilateral Sciatica presence: without sciatica Asymptomatic hypertensive urgency I16.0 Lumbar stenosis with neurogenic claudication M48.062 Lumbar stress fracture M48.46XA
--- NOTE | 2021-03-01 13:37 | PC.SOCIAL ---
IMM Updated Updated pt on IMM. No questions voiced. Provided pt a copy. Initialed, dated, & timed copy in chart.
--- NOTE | 2021-03-01 15:00 | ANE.PACU2 ---
Inpatient post-anesthesia follow up: Airway intact: Yes Vital signs: Temperature 98.7 F Pulse Rate 63 Respiratory Rate 17 Blood Pressure 147/70 Pulse Oximetry 93 Oxygen Delivery Me thod Room Air Oxygen Flow Rate Fraction of Inspir ed Oxygen Hydration adequate: Yes Nausea and vomiting: No Pain level: 3 Mental status: Baseline
[2021-03-01] MEDS: amoxicillin-clav 875-125 mg Tablet 1 TAB PO (17:04)
[2021-03-02] VITALS: BP 115/65; PULSE 66; RESP 17; TEMP 36.5; O2SAT 97
[2021-03-02] MEDS: HYDROcodone-acetaminophen 5-325 mg Tablet PO (02:45)
[2021-03-02] MEDS: lactated ringers 1,000 ML 90 ML IV (05:08)
[2021-03-02 06:44] VITALS: BP 177/86; PULSE 74; RESP 18; TEMP 36.4; O2SAT 92
--- NOTE | 2021-03-02 07:52 | PM.PN ---
Subjective Subjective: Interval history: POD 1 Patient reporting significant improvement of back pain. Denies any fever chills, chest pain, headaches. Vitals/I&O/Wt Last Vital Signs Temp 97.5 F L 03/02/21 06:44 Pulse 74 03/02/21 06:44 Resp 18 03/02/21 06:44 BP 177/86 03/02/21 06:44 Pulse Ox 92 03/02/21 06:44 03/01/21 03/02/21 03/02/21 22:59 06:59 14:59 Intake Total 300 / 850 1060 / 1910 Output Total 550 / 555 Balance 300 / 845 510 / 1355 Physical Exam Narrative: EXAM NARRATIVE: Patient presents alert and oriented x3 with a good general appearance normal normal affect. Normal coordination normal stability. Mild tenderness around the incisional site with the incision appear to be healing nicely. No signs of erythema or drainage. No signs of infection. Patient denies any fevers or chills. 4/5 motor strength both lower extremities with negative straight leg raise bilaterally. Calves are supple no medial thigh tenderness. Pulses are 2+ at the dorsalis pedis and posterior tibial region. Good capillary refill throughout normal sensation light touch both lower extremities. Urinary Catheter Management^: Roa: Cath Placed During This Visit: yes, but has since been removed by the nurse Reason for Continuing Indwelling Catheter: Required Immobilization for Trauma or Surgery or Anesthesia Urinary Catheter Date of Insertion: 02/24/21 Urinary Catheter Time of Insertion: 17:59 Date Urinary Catheter Removed: 02/27/21 Time Urinary Catheter Discontinued: 12:47 Data : 02/26/21 06:05 03/01/21 06:06 Micro: Microbiology 02/27/21 13:15 Urine Culture - Final Urine,Voided Proteus penneri Klebsiella pneumoniae A&P Assessment and plan (1) Lumbar compression fracture: Encourage her to continue walking program be cautious with bending lifting or twisting. Discharge later today when medically stable. See her back in the office in 1 to 2 weeks for wound check. Status: Acute Attestations Medical Necessity Statement*: Discharge when medically stable Coding Level of Care Code Acute Distribution Supervisor for [facility] Diagnoses Lumbar compression fracture S32.000A
[2021-03-02 08:40] VITALS: PULSE 91; RESP 16; O2SAT 96
[2021-03-02 08:57] VITALS: BP 177/86
[2021-03-02] MEDS: losartan 50 mg Tablet 100 MG PO (08:57)
[2021-03-02] MEDS: docusate sodium 100 mg Capsule PO (08:57)
[2021-03-02] MEDS: amoxicillin-clav 875-125 mg Tablet 1 TAB PO (08:57)
[2021-03-02] MEDS: amlodipine 10 mg Tablet PO (08:58)
--- NOTE | 2021-03-02 10:23 | PC.OT ---
OT TREATMENT ATTEMPTED. PATIENT REPORTS THAT SHE IS TO BE D/C [facility] TODAY AND WOULD LIKE TO REST.
[2021-03-02 11:11] VITALS: BP 152/59; PULSE 75; RESP 18; TEMP 36.5; O2SAT 96
[2021-03-02 11:28] LABS: Adenovirus Not Detected (NOT DETECT); Chlamydia Pneumoniae Not Detected (NOT DETECT); Coronavirus 229E,HKU1,NL63,OC4 Not Detected (NOT DETECT); Human Metapneumovirus Not Detected (NOT DETECT); Human Rhinovirus/Enterovirus Not Detected (NOT DETECT); Influenza A Not Detected (NOT DETECT); Influenza A H1 Not Detected (NOT DETECT); Influenza A H1-2009 Not Detected (NOT DETECT); Influenza A H3 Not Detected (NOT DETECT); Influenza B Not Detected (NOT DETECT); Mycoplasma Pneumoniae Not Detected (NOT DETECT); Parainfluenza Virus Type 1 Not Detected (NOT DETECT); Parainfluenza Virus Type 2 Not Detected (NOT DETECT); Parainfluenza Virus Type 3 Not Detected (NOT DETECT); Parainfluenza Virus Type 4 Not Detected (NOT DETECT); Respiratory Syncytial Virus A Not Detected (NOT DETECT); Respiratory Syncytial Virus B Not Detected (NOT DETECT); SARS-COV-2 Not Detected (NOT DETECT)
--- NOTE | 2021-03-02 11:43 | P.DS_ITS ---
Discharge Providers Date of Admission: 02/24/21 14:47 Date of Discharge: March 02, 2021 Attending Provider at Admission: Alee Reid MD Attending Provider at Discharge: Jesús Ramsey Primary Care Provider: Eduin Zeng MD Diagnoses at Discharge Discharge Diagnosis (1) Lumbar compression fracture: Status: Acute Reason for Visit Reason for Visit: BACK PAIN POST SURGERY Hospital Course Hospital Course Please see patient's H&P, consult notes, progress notes and procedure notes for more details. Discharge diagnoses and problem list New L3, L4, L5 compression fractures. Status post kyphoplasty by Dr. Talbot. Doing much better today. The pain is well controlled. Cleared for discharge. Continue pain management. TLSO brace. Appreciate Dr. Talbot's input. continue PT OT efforts. Going to nursing home facility. She denies any active compla ints. Eager to be discharged. Follow-up instructions are discussed. She verbalized understanding and agreement. Also discussed with the family. Left knee chronic arthritis. Steroid injection by Dr. Talbot. UTI. Switch to Augmentin at discharge. Urine cultures were positive for Proteus and Klebsiella. Hypertension. Continue current management. Physical Exam Narrative: EXAM NARRATIVE: Awake alert oriented. No acute distress. Responses are adequate. Skin is warm and dry. Moist mucous membranes. No JVD Lungs are clear bilaterally. No respiratory distress Heart S1, S2, regular Abdomen soft, nontender, bowel sounds are present Extremities bilateral chronic venous stasis changes, chronic edema, chronic swelling in the knees without associated hyperemia. Passive range of motion's is within normal range. No peripheral cyanosis. No calf tenderness bilaterally Moves all extremities. Eyes PERRL, extraocular muscles are intact Urinary Catheter Management^: Roa: Cath Placed During This Visit: yes, but has since been removed by the nurse Reason for Continuing Indwelling Catheter: Required Immobilization for Trauma or Surgery or Anesthesia Urinary Catheter Date of Insertion: 02/24/21 Urinary Catheter Time of Insertion: 17:59 Date Urinary Catheter Removed: 02/27/21 Time Urinary Catheter Discontinued: 12:47 Discharge Data Data Completed and Pending: Labs from last 24 hours 03/02/21 09:20 Coronavirus 229E ( PCR) Not detected SARS-CoV-2 (PCR) Not detected Vitals: Last Vital Signs Temp 97.7 F 03/02/21 11:11 Pulse 75 03/02/21 11:11 Resp 18 03/02/21 11:11 BP 152/59 03/02/21 11:11 Pulse Ox 96 03/02/21 11:11 Discharge Plan Discharge Patient Disposition: Xfer SNF Condition: Stable Prescriptions: New tramadol 50 mg Tablet 50 mg PO Q6H PRN (Reason: Moderate Pain) Qty: 20 RF: 0 amlodipine 10 mg Tablet 10 mg PO DAILY Qty: 30 RF: 0 docusate sodium 100 mg Capsule 100 mg PO BID Qty: 20 RF: 0 amoxicillin-pot clavulanate 875-125 mg Tablet 1 tab PO BID Qty: 10 RF: 0 Lidoderm 5 % adhesive patch,medicated 1 patch topical DAILY Qty: 1 RF: 0 Continued losartan 100 mg tablet 100 mg PO DAILY RF: 0 Discontinued oxycodone-acetaminophen 5-325 mg tablet 1 - 2 tab PO Q6H PRN (Reason: Pain) 7 Days Qty: 40 RF: 0 Discharge Orders: Discharge Order (Routine); Ordered 03/02/21 Ordered By: Jesús Ramsey Other Ambulatory Orders: Basic Metabolic Panel (Routine) Timeframe: 1 Week Facility: [facility] - Location: Lab - Main Lab Ordered By: Jesús Ramsey Complete Blood Count w/Auto (Routine) Timeframe: 1 Week Location: Determined by Patient Ordered By: Jesús Ramsey Referrals: [facility] [Outside] Chepe Talbot DO [Physician] - 03/16/21 8:45 am Discharge Diet: Cardiac Discharge Activity: Increase activity as tolerated Activity Restrictions/Additional Instructions: Thank you for [facility] for your care! The following is a list of instructions, from your provider, to follow upon your discharge to ensure you have the optimal recovery from your recent injury orsurgery. Follow-up care is a renteria part of your treatment and safety. Be sure to make and go to all appointments, and call your doctor if you are having problems. If you do not already have a follow-up appointment made, call Dr. Talbot office in the next 1-3 days to make follow up appointment for 2 weeks at [phone]. It is also a good idea to know your test results and keep a list of the medicines you take. Medications will be prescribed for you at your provider's discretion. These medications are to be used as instructed; if they are taken more often that prescribed they will not be refilled early and in most cases will not be refilled at all. > When a refill is needed,you should contact shubham castellano 2-3 business days before your prescription runs out. Medications will NOT be refilled by access consultant providers after hours! > Many pain medications contain Tylenol (Acetaminophen). Do not consume more than 4,000 mg of Tylenol per day in total with any combination ofmedications. > Pain medications can cause constipation. Please use an over the counter stool softener as directed, while taking pain medications. Consulty our local pharmacist with questions or recommendations on stool softeners. If constipation persists, contact our office or your primary care provider. > While under our care,you are not to receive pain medications or other controlled substances from any other provider unless our office is notified and approves. Any attempts to do so will result in refusal to prescribe any further pain medications and possible dismissal from our practice. ? Your wound and/or dressing should remain clean and dry for 2 days after surgery. On postoperative day 2 (48 hours after your surgery) the dressing (if present) should be removed and it is okay to shower and get the incision wet. Pad dry afterwards. No further dressing should be required from that point on. Do not put any creams or ointments on theincision > It is normal for there to be a small amount of discharge (bloody or blood tinged) present from a surgical wound for the first 1-3days. > The wound should be examined twice a day for signs of infection. Mild redness or bruising is to be expected but indications that an infection maybe starting would include; An increase in redness, swelling, or discharge, a foul odor present around the incision, and/or a fever greater than 101 ?F ? Showering is permitted, however we ask that you do not take a bath, sit in a whirlpool / Jacuzzi, or go swimming for 1 month. For only the first 2 days after surgery, lt wilt be necessary for you to cover your wound/dressing with plastic and tape to keep it dry. ? Walking is essential for the healing process after surgery. We would like you to slowly advance your walking. This should be done on relatively flat clear ground (inside or out) or can be done on a treadmill. Remember this goal does not have to happen all at once, slowly increase your distance and duration. This can be broken into more more than one walk per day as tolerated. Patients who walk as directed after surgery rarely require Physical Therapy. In the unlikely event this issue arises your provider will direct hospital staff to make the appropriate arrangements. ? No lifting over 5 pounds {a gallon of milk) or bending/twisting until further notice. Each of these activities places an unnecessary amount of stress onto the body and can impede the delicate healing process. > Instead of bending at the waist, keep your back straight and bend at the knees. > Instead of twisting your torso, keep your back straight and turn your entire body with your feet. ? You may sleep in any position which makes you comfortable. Many patients find comfort sleeping in a reclining chair. It is not abnormal to have difficulty sleeping for the first several weeks following your surgery. We recommend trying Benadry! or Tylenol PM as directed to help with your sleeping difficulties. Both medications are over the counter and available withoutprescription. ? NO SMOKING!!! Smoking dramatically increases the probability of developing postoperative wound infections. ? Common complaints after lumbar and/or thoracic spine surgery include, but are not limited to: numbness and/or tingling in the legs, pain around the incision and surrounding tissues, muscle spasms, or stiffness of the middle to low back. Contact our office if these symptoms persist or if an acute change occurs. ? No driving for the first 3-5days, and not while taking narcotics [] until seen at your follow-up appointment and cleared. There are no restrictions for riding on short trips, however if you take a longer trip, arrangements should be made to make regular stops to get out of the vehicle and stretch . ? Swelling is an unfortunate event that will take place with any surgery and is the primary source of your postoperative discomfort. While walking and regular approved activities helps control inflammation, there are additional steps you can take to minimizeswelling. > Place ice over the surgical site and surrounding tissue for twenty minutes, followed by applying a low/medium heat (heating pad) for an additional twenty minutes every 1-2 hours as needed for painrelief. > You may use of over the counter anti-inflammatory medications (Ibupro fen, Motrin, Aleve, Advil, etc) as directed on the package label. These types of medicines wm significantly reduce the amount of discomfort you experience after surgery from swelling. It should be noted that if you have and allergy to any of these medications, or a history of ulcers or kidney disease you should consult you primary care provider prior to starting these medications. Discharge Attestations Time Spent in Discharge Care*: greater than 30 min Quality Metrics Clinical Quality Measures During this hospital stay, did patient experience: None Coding Level of Care Code Acute [facility] note Diagnoses Lumbar compression fracture S32.000A
[2021-03-02 13:29] VITALS: BP 152/59; PULSE 75; RESP 18; TEMP 36.5; O2SAT 96
== END 2021-03-02 12:55 | disposition skilled nursing facility (03) | DRG 516 ==
LOC: ER 12:55 → ICU 16:15 → MEDSURG 18:30
PROVIDERS: Orthopaedic Surgery; Admitting Provider Internal Medicine; Emergency Provider Family Medicine; PCP Family Medicine; Visit Provider Internal Medicine
PROC: 0QU03JZ Supplement Lumbar Vertebra with Synthetic Substitute, Percutaneous Approach (ICD-10-PCS; principal; 2021-03-01 07:00)
PROC: 3E0U3GC Introduction of Other Therapeutic Substance into Joints, Percutaneous Approach (ICD-10-PCS; CPT 20610; 2021-03-01 07:00)
DX: M48.56XA Collapsed vertebra, not elsewhere classified, lumbar region, initial encounter for fracture (principal); N39.0 Urinary tract infection, site not specified; Z85.3 Personal history of malignant neoplasm of breast; Z85.820 Personal history of malignant melanoma of skin; Z85.828 Personal history of other malignant neoplasm of skin; I10 Essential (primary) hypertension; M48.062 Spinal stenosis, lumbar region with neurogenic claudication; Z98.890 Other specified postprocedural states; I16.0 Hypertensive urgency; M17.12 Unilateral primary osteoarthritis, left knee; G89.29 Other chronic pain
CPT/HCPCS: 36415; 36416; 51702; 76000; 80048; 80053; 80069; 81001; 82962; 83735; 84439; 84443; 85025; 85610; 87077; 87086; 87186; 87635; 96372; 96374; 96375; 96376; 97110; 97116; 97161; 97162; 97165; 97530; 97535; 99284; 99285; 99291; 99292; J0360; J0690; J0696; J1040; J1100; J1650; J1885; J1940; J2270; J2360; J2405; J2704; J2710; J2930; J3010; J3475; J3490; J7030

== ENCOUNTER → 2021-04-20 09:21 | Outpatient (BNVA) | payer MEDICARE, OTHER, SELFPAY | PROVIDERS: PCP Family Medicine; Visit Provider Physician Assistant | DX: M25.562 Pain in left knee (principal); M25.561 Pain in right knee | CPT/HCPCS: 73560; 73565 ==

== ENCOUNTER 2021-05-29 13:43 | Outpatient (CLI) | payer MEDICARE, OTHER, SELFPAY ==
--- NOTE | 2021-05-29 14:16 | XR_ITS ---
WS: [id number] Exam: XR shoulder LT min 2V* [id number] Date/Time of Exam: 05/29/2021 2:16 PM Reason For Exam: SHOULDER PAIN No acute fracture or dislocation. Degenerative change at the glenohumeral joint. Surgical clips along the left axilla. XR/XR shoulder LT min 2V* [id number] IMPRESSION: 1. 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 2. No fracture or dislocation.
--- NOTE | 2021-05-29 14:16 | XR_ITS ---
WS: [id number] Exam: XR shoulder RT min 2V* [id number] Date/Time of Exam: 05/29/2021 2:16 PM Reason For Exam: RT SHOULDER PAIN No acute fracture or dislocation noted. Moderately advanced degenerative change at the glenohumeral j oint. Deformity of the humeral neck that may be secondary to prior fracture. AC joint DJD. Normal sof t tissues. XR/XR shoulder RT min 2V* [id number] IMPRESSION: 1. Moderately advanced DJD at the glenohumeral joint. AC joint DJD. 2. Deformity of the humeral neck probably secondary to previous fracture. No ac renata fracture seen.
== END 2021-05-29 13:44 | disposition home or self-care (01) ==
LOC: RAD 13:46
PROVIDERS: PCP Family Medicine; Visit Provider Family Medicine
DX: M19.012 Primary osteoarthritis, left shoulder (principal); M19.011 Primary osteoarthritis, right shoulder
CPT/HCPCS: 73030

== ENCOUNTER → 2021-06-15 10:35 | Outpatient (BNVA) | payer MEDICARE, OTHER, SELFPAY | PROVIDERS: PCP Family Medicine; Visit Provider Physician Assistant | DX: M48.56XD Collapsed vertebra, not elsewhere classified, lumbar region, subsequent encounter for fracture with routine healing (principal) | CPT/HCPCS: 99213; 99999 ==

== ENCOUNTER → 2021-07-21 11:02 | Outpatient (BNVA) | payer MEDICARE, OTHER, SELFPAY | PROVIDERS: PCP Family Medicine; Referring Provider Physician Assistant; Visit Provider Internal Medicine | DX: E07.9 Disorder of thyroid, unspecified (principal); S32.000A Wedge compression fracture of unspecified lumbar vertebra, initial encounter for closed fracture; M80.00XA Age-related osteoporosis with current pathological fracture, unspecified site, initial encounter for fracture; T07.XXXA Unspecified multiple injuries, initial encounter; X58.XXXA Exposure to other specified factors, initial encounter | CPT/HCPCS: 99204 ==

== ENCOUNTER 2021-08-17 15:27 | Emergency (ER) | payer MEDICARE, OTHER, SELFPAY ==
[2021-08-17 15:33] VITALS: BP 154/64; PULSE 81; RESP 16; TEMP 36.9; O2SAT 95; BMI 36.6
--- NOTE | 2021-08-17 15:36 | XR_ITS ---
WS: [id number] Portable AP upright chest, 08/17/2021 Clinical Data: weakness Comparison: PA and lateral chest, 12/12/2020. Findings: No nodules, masses or effusions are seen. The heart is normal. The pulmonary vascularity is not increased. No pneumonia or pneumothorax is seen. The aortic arch and descending thoracic aorta s how tortuosity. There are clips in the left axilla. There is an old fracture of the right humeral nec k. There are clips in the right upper quadrant from a cholecystectomy. XR/XR chest 1V portable [id number] Impression: Atherosclerosis.
--- NOTE | 2021-08-17 15:37 | ECG_ITS ---
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 Measurements Intervals [place] Rate: 80 P: 68 FL: 173 QRS: -21 QRSD: 66 T: 68 QT: 360 QTc: 418 Interpretive Statements SINUS RHYTHM WITH OCCASIONAL SUPRAVENTRICULAR PREMATURE COMPLEXES BORDERLINE LEFT AXIS DEVIATION [QRS AXIS < -20] Compared to ECG 12/16/2020 06:41:22 No significant changes Electronically Signed On 08-18-2021 5:47:36 CDT by Jimbo Roy M.D. [id number]
--- NOTE | 2021-08-17 15:42 | W.ED.FALL ---
HPI - Fall General: Chief Complaint: Fall Stated Complaint: WEAK/ SOB/ DOWN SEVERAL HOURS Time Seen by Provider: 08/17/21 15:31 History of Present Illness: 86-year-old female presents with generalized weakness. Patient reports that yesterday afternoon she was weak was bent over to do her laundry when she fell. Patient reports that she was just unable to get up due to generalized weakness. She denies any loss of consciousness, focal weakness, chest pain, shortness of breath. Patient did not hit her head. She did hit her right forearm/hand on a plastic tub/bucket has some mild bruising/skin tears but full range of motion. Patient reports that this happened yesterday afternoon around 230. She was able to get EMS called around noon today. At that time she declined transfer to the ER. They helped her get the bed. She reports that she went took a nap, however when she went to get up to go to the restroom she was still too weak and at that point felt like she needed to come to the ER. Patient complains of some mild pain on the right chest wall she thinks from trying to push herself up with her right arm. She denies any nausea, vomiting, recent illness. 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 He reports this is her second surgery since I did not get all of it during first surgery. Associated symptoms-after fall: Denies abdominal pain, chest pain, confusion, headache(s) or lightheadedness Review of Systems Const: Reports: other (weakness); Denies: fever(s) or chills Card: Denies: chest pain, palpitations, lightheadedness or syncope Resp: Denies: dyspnea, productive cough or non-productive cough GI: Denies: abdominal pain, nausea or vomiting : Denies: flank pain or difficulty voiding Musc: Reports: muscle weakness Skin/Breast: Reports: other (please see hpi) Neuro: Reports: weakness in extremities; Denies: headache(s), numbness in extremities, dizziness, confusion or Slurred speech present Psych: Denies: anxiety or depression [facility] PFSH: Medical History Compression fracture History of breast cancer History of malignant melanoma History of melanoma History of nonmelanoma skin cancer HTN (hypertension) Lumbar stress fracture Surgical History History of bladder repair surgery History of cholecystectomy History of hysterectomy History of mastectomy History of ventral hernia repair Hx of spinal surgery L4/5 laminectomy Family History Other Hypertension Social History Smoking and tobacco status: never smoked History of recent travel: No Physical Exam Const: COMMON NORMALS: no acute distress, patient oriented x3, no limitations and alert ORIENTATION/CONSCIOUSNESS: Yes oriented to person and Yes oriented to time HENMT: COMMON NORMALS: normocephalic and atraumatic HEAD & SCALP: normocephalic and atraumatic Eye: COMMON NORMALS: Equal, round and reactive pupils present and EOMs intact bilaterally PUPIL: Yes Equal, round and reactive pupils present Resp: COMMON NORMALS: normal respiratory effort and No retractions EFFORT & INSPECTION: Yes able to speak in complete sentences Extremity: NARRATIVE EXTREMITY EXAM: Generalized weakness. Greatest weakness in right lower extremity Neuro: COMMON NORMALS: patient oriented x3 SENSORIUM/ORIENTATION: Yes alert, Yes oriented to person and Yes oriented to time MOTOR EXAM: Other motor observations present (mild decrease weakness, right greater than left) Skin: OTHER: Mild abrasions and erythema/contusion right hand and distal right arm Course Vital Signs: Vital signs: Vital Signs Temperature 98.5 F 08/17/21 15:33 Pulse Rate 81 08/17/21 15:33 Respiratory Rate 16 08/17/21 15:33 Blood Pressure 154/64 08/17/21 15:33 Pulse Oximetry 95 08/17/21 15:33 MDM - Fall Medical Decision Making Patient with urinary tract infection. Patient does have some generalized weakness however she feels she can ambulate with her walker and would like to try to go home. I will give her some Rocephin prior to discharge and discharged on Keflex. Patient is instructed to return if she feels she gets home and is too weak to take stay and we will admit her. Patient was stable upon discharge Lab Data : 08/17/21 15:39 08/17/21 15:39 Radiology Impressions Chest X-Ray 08/17/21 15:36 Impression: Atherosclerosis. Head CT 08/17/21 15:48 IMPRESSION: 1. No acute intracranial hemorrhage or edema. 2. Multiple moderate atrophy with moderate small vessel ischemic changes. Laboratory Results WBC 8.1 10^3/uL (4.0-10.0) 08/17/21 15:39 RBC 4.22 10^6/uL (4.1-5.3) 08/17/21 15:39 Hgb 12.5 g/dL (11.5-15.3) 08/17/21 15:39 Hct 35.6 % (37.0-47.0) L 08/17/21 15:39 MCV 84.4 fl (81-99) 08/17/21 15:39 MCH 29.6 pg (28.0-34.0) 08/17/21 15:39 MCHC 35.1 g/dL (30.0-36.0) 08/17/21 15:39 RDW 13.6 % (12.1-15.1) 08/17/21 15:39 Plt Count 141 10^3/cmm (130-400) 08/17/21 15:39 MPV 10.8 fL (7.4-10.4) H 08/17/21 15:39 Neut % (Auto) 84.8 % 08/17/21 15:39 Lymph % (Auto) 7.2 % 08/17/21 15:39 [place] % (Auto) 7.6 % 08/17/21 15:39 Eos % (Auto) 0.0 % 08/17/21 15:39 Baso % (Auto) 0.0 % 08/17/21 15:39 Neut # (Auto) 6.83 10^3/uL (1.8-7.7) 08/17/21 15:39 Lymph # (Auto) 0.6 10^3/uL (0.8-4.8) L 08/17/21 15:39 [place] # (Auto) 0.6 10^3/uL (0.2-0.9) 08/17/21 15:39 Eos # (Auto) 0.0 10^3/uL (0.0-0.8) 08/17/21 15:39 Baso # (Auto) 0.0 10^3/uL (0.0-0.1) 08/17/21 15:39 Nucleated RBC % (auto) 0 % 08/17/21 15:39 Nucleated RBCs # 0.0 /100WBC 08/17/21 15:39 Sodium 134 mmol/L (136-145) L 08/17/21 15:39 Potassium 3.3 mmol/L (3.5-5.1) L 08/17/21 15:39 Chloride 99 mmol/L (98-107) 08/17/21 15:39 Carbon Dioxide 21 mmol/L (22-29) L 08/17/21 15:39 Anion Gap 17.3 (5-19) 08/17/21 15:39 BUN 14 mg/dL (8-23) 08/17/21 15:39 Creatinine 0.6 mg/dL (0.5-0.9) 08/17/21 15:39 GFR Calculation Not Reportable 08/17/21 15:39 Glucose 116 mg/dL (65-115) H 08/17/21 15:39 Calculated Osmolality 279 mOsm/kg (285-295) L 08/17/21 15:39 Calcium 8.9 mg/dL (8.5-10.5) 08/17/21 15:39 Magnesium 1.4 mg/dL (1.7-2.3) L 08/17/21 15:39 Total Bilirubin 0.9 mg/dL (0.15-1.2) 08/17/21 15:39 AST 24 U/L (0-32) 08/17/21 15:39 ALT 15 U/L (0-33) 08/17/21 15:39 Alkaline Phosphatase 159 IU/L (35-105) H 08/17/21 15:39 Creatine Kinase 141 U/L (26-192) 08/17/21 15:39 Troponin T Gen 5 ng/L 18 ng/L (0-10) H 08/17/21 15:39 Total Protein 6.1 g/dL (6.6-8.7) L 08/17/21 15:39 Albumin 3.7 g/dL (3.5-5.2) 08/17/21 15:39 Globulin 2.4 g/dL (1.3-4.6) 08/17/21 15:39 Urine Color Yellow (Yellow) 08/17/21 17:25 Urine Appearance Cloudy (CLEAR) 08/17/21 17:25 Urine pH 6 (5-7) 08/17/21 17:25 Ur Specific [place] 1.020 (1.005-1.030) 08/17/21 17:25 Urine Protein 2+ (Negative) H 08/17/21 17:25 Urine Glucose (UA) Norm (Normal) 08/17/21 17:25 Urine Ketones 1+ (Negative) H 08/17/21 17:25 Urine Blood 3+ (Negative) H 08/17/21 17:25 Urine Nitrate Negative (Negative) 08/17/21 17:25 Urine Bilirubin Neg (Negative) 08/17/21 17:25 Urine Urobilinogen 1 mg/dL (Negative) H 08/17/21 17:25 Ur Leukocyte Esterase Trace (Negative) H 08/17/21 17:25 Urine RBC 0-4 /hpf (0-2) H 08/17/21 17:25 Urine WBC 0-4 /hpf (0-5) H 08/17/21 17:25 Ur Squamous Epith Cells 0-4 /hpf (0-5) H 08/17/21 17:25 Amorphous Sediment Not Reportable 08/17/21 17:25 Urine Bacteria 4+ /hpf (NONE) H 08/17/21 17:25 EKG Data EKG 1: I personally reviewed and interpreted this EKG as follows: EKG interpretation date: 08/17/21 EKG interpretation time: 15:50 Interpretation: hr 80, sinus, with PVC Pr [address] changes, no acute findings Discharge Plan Discharge Patient Disposition: Home Clinical Impression: Generalized muscle weakness, Acute cystitis with hematuria Condition: Stable Prescriptions: New cephalexin 500 mg capsule 500 mg PO BID 7 Days Qty: 14 0RF No Action fluorouracil 5 % cream 1 applic topical ONCE Qty: 40 1RF Rx Instructions: Bring to office at follow-up losartan 100 mg tablet 100 mg PO DAILY 0RF hydrocodone-acetaminophen 5-325 mg tablet 1 - 2 tab PO Q8H PRN (Reason: Pain) 0RF amlodipine 10 mg tablet 10 mg PO DAILY 0RF lidocaine [Lidoderm] 5 % adhesive patch,medicated 1 patch topical DAILY Qty: 1 0RF Rx Instructions: leave on most painful area for up to 12 hrs furosemide 20 mg tablet 20 mg PO DAILY PRN (Reason: Edema) 0RF potassium chloride 10 mEq tablet,ER particles/crystals 10 meq PO DAILY PRN (Reason: With Lasix) 0RF Discharge Orders: Discharge ED (Routine); Ordered 08/17/21 Ordered By: Alberto Muir Referrals: Eduin Zeng MD [Primary Care Provider] - Discharge Diet: Advance as tolerated Discharge Activity: Increase activity as tolerated and Use walker/crutches as instructed Patient Instructions: Opioid Safety, Weakness (Generalized), Urinary Tract Infection in Older Adults (ED) Activity Restrictions/Additional Instructions: Please use a walker when ambulating Follow-up with your primary care provider in a couple days for recheck Coding Level of Care Code ED Special Education Resource Teacher for Chg Fwd Exam Detailed
--- NOTE | 2021-08-17 15:48 | CT_ITS ---
WS: [id number] CT HEAD NONCONTRAST HISTORY: weakness, mild right sided TECHNIQUE: Contiguous axial imaging performed through the brain in 2.5 mm imaging. Bone and soft tiss ue windows. Sagittal and coronal reformats reviewed. All CT scans at [facility] [place] use at least one of these dose optimization techniques: automated exposure control; mA and/or kV adjustment per pa tient size (includes targeted exams where dose is matched to clinical indication); or iterative recon struction. DLP: 948.76 mGy.cm COMPARISON: None available. No acute intracranial hemorrhage, midline shift or mass effect. Mild to moderate atrophy and moderate small vessel ischemic changes. No prior infarct. Mild cerebella r atrophy. Ventricles: Mild ventriculomegaly. No inferior displacement of cerebellar tonsils. Paranasal sinuses: As visualized are clear. Mastoid air cells: Well pneumatized. Calvarium and scalp: Skull is intact with no soft tissue edema or swelling. CT/CT head wo con* [id number] IMPRESSION: 1. No acute intracranial hemorrhage or edema. 2. Multiple moderate atrophy with moderate small vessel ischemic changes.
[2021-08-17 15:52] LABS: Hematocrit 35.6 % (37.0-47.0); Hemoglobin 12.5 g/dL (11.5-15.3); Lymphocytes # 0.6 10^3/uL (0.8-4.8); Lymphocytes % 7.2 %; Mean Corpuscular HGB Conc 35.1 g/dL (30.0-36.0); Mean Corpuscular Hemoglobin 29.6 pg (28.0-34.0); Mean Corpuscular Volume 84.4 fl (81-99); Mean Platelet Volume 10.8 fL (7.4-10.4); Monocytes # 0.6 10^3/uL (0.2-0.9); Monocytes % 7.6 %; Neutrophils # 6.83 10^3/uL (1.8-7.7); Neutrophils % 84.8 %; Nucleated Red Blood Cells % 0 %; Platelet Count 141 10^3/cmm (130-400); Red Blood Count 4.22 10^6/uL (4.1-5.3); Red Cell Distribution Width 13.6 % (12.1-15.1); White Blood Count 8.1 10^3/uL (4.0-10.0)
[2021-08-17 16:08] LABS: Troponin T (5th) Once 18 ng/L (0-10)
[2021-08-17 16:09] LABS: Alanine Aminotransferase 15 U/L (0-33); Albumin Level 3.7 g/dL (3.5-5.2); Alkaline Phosphatase 159 IU/L (35-105); Anion Gap 17.3 (5-19); Aspartate Amino Transferase 24 U/L (0-32); Blood Urea Nitrogen 14 mg/dL (8-23); Calcium 8.9 mg/dL (8.5-10.5); Carbon Dioxide 21 mmol/L (22-29); Chloride 99 mmol/L (98-107); Creatine Phosphokinase 141 U/L (26-192); Globulin 2.4 g/dL (1.3-4.6); Glucose 116 mg/dL (65-115); Magnesium 1.4 mg/dL (1.7-2.3); Osmolality Calculated 279 mOsm/kg (285-295); Potassium 3.3 mmol/L (3.5-5.1); Sodium 134 mmol/L (136-145); Total Bilirubin 0.9 mg/dL (0.15-1.2); Total Protein 6.1 g/dL (6.6-8.7)
--- NOTE | 2021-08-17 17:21 | PC.NURSE ---
500 mL of NACL ordered non-administrated per verbal order of Dr. Muir.
[2021-08-17 18:01] LABS: Urine Appearance Cloudy (CLEAR); Urine Color Yellow (Yellow)
[2021-08-17 18:02] LABS: Add Urine Microscopic? YES; Bacteria Urine 4+ /hpf; Bilirubin Urine Neg (Negative); Blood Urine 3+ (Negative); Glucose Urine UA Norm (Normal); Ketones Urine 1+ (Negative); Leukocyte Esterase Urine Trace (Negative); Nitrate Urine Negative (Negative); Protein Urine 2+ (Negative); RBC Urine 0-4 /hpf (0-2); Squamous Epithelial Cell Urine 0-4 /hpf (0-5); Urobilinogen Urine 1 mg/dL (Negative); WBC Urine 0-4 /hpf (0-5); pH Urine 6 (5-7)
[2021-08-17 18:03] LABS: Add Urine Culture? Yes
[2021-08-17 19:59] VITALS: BP 166/74; PULSE 76; RESP 20; O2SAT 96
== END 2021-08-17 20:00 | disposition home or self-care (01) ==
PROVIDERS: Emergency Provider Student in an Organized Health Care Education/Training Program; PCP Family Medicine
DX: N30.01 Acute cystitis with hematuria (principal); R53.1 Weakness; I10 Essential (primary) hypertension
CPT/HCPCS: 70450; 71045; 80053; 81001; 82550; 83735; 84484; 85025; 87086; 93005; 99284

== ENCOUNTER → 2021-08-23 15:31 | Outpatient (BNVA) | payer MEDICARE, OTHER, SELFPAY | PROVIDERS: PCP Family Medicine; Visit Provider Family Medicine | DX: R25.2 Cramp and spasm (principal); Z51.81 Encounter for therapeutic drug level monitoring; E04.1 Nontoxic single thyroid nodule | CPT/HCPCS: 80053; 82550; 83735; 84439; 84443; 85025 ==

== ENCOUNTER → 2021-08-30 15:21 | Outpatient (BNVA) | payer MEDICARE, OTHER, SELFPAY | PROVIDERS: PCP Family Medicine; Visit Provider Family Medicine | DX: N39.0 Urinary tract infection, site not specified (principal) | CPT/HCPCS: 81000 ==

== ENCOUNTER 2021-09-14 16:45 | Outpatient (CLI) | payer MEDICARE, OTHER, SELFPAY ==
--- NOTE | 2021-09-14 | XR_ITS ---
WS: [id number] Chest 2 views, 09/14/2021 Clinical Data: Weight loss, persistent cough, weakness Comparison: Portable chest, 08/17/2021. Findings: No nodules, masses or effusions are seen. The heart is normal. The pulmonary vascularity is not increased. No pneumonia or pneumothorax is seen. The aortic arch and descending thoracic aorta s how tortuosity. There are clips in the left axilla. Vertebroplasty cement is noted in the upper lumba r vertebral bodies. XR/XR chest 2V* [id number] Impression: Atherosclerosis.
== END 2021-09-14 16:46 | disposition home or self-care (01) ==
PROVIDERS: PCP Family Medicine; Visit Provider Nurse Practitioner Family
DX: R63.4 Abnormal weight loss (principal); R05.9 Cough, unspecified; R53.1 Weakness; I25.10 Atherosclerotic heart disease of native coronary artery without angina pectoris
CPT/HCPCS: 71046; 80053; 81000; 85025; 85651; 86140; 87086; 87106; 87493; 87506

== ENCOUNTER → 2021-10-05 15:11 | Outpatient (BNVA) | payer MEDICARE, OTHER, SELFPAY | PROVIDERS: PCP Family Medicine; Visit Provider Orthopaedic Surgery | DX: M48.062 Spinal stenosis, lumbar region with neurogenic claudication | CPT/HCPCS: 72100; 99214 ==

== ENCOUNTER 2021-10-12 08:10 | Outpatient (CLI) | payer MEDICARE, OTHER, SELFPAY ==
[2021-10-12] MEDS: iodixanol 320 mg/mL 100mL Btl IV (09:00)
--- NOTE | 2021-10-12 09:30 | CT_ITS ---
WS: [id number] CT ABDOMEN AND PELVIS WITH CONTRAST HISTORY: Abdominal pain, weight loss, nausea, diarrhea TECHNIQUE: Imaging performed of the abdomen and pelvis with IV contrast. Single phase imaging of the abdomen. Coronal and sagittal reformats are submitted. All CT scans at [facility] use at [facility] one of these dose optimization techniques: automated exposure control; mA and/or kV adjustment per patient size (includes targeted exams where dose is matched to clinical indication); or iterative re construction. IV CONTRAST: Visipaque 320; 95 mL IV. Oral contrast: No DLP: 1137.83 mGy.cm COMPARISON: 08/16/2017 Lower thorax: Stable 5 mm nodule LEFT lower lobe. Heart is moderately enlarged. No pericardial effusi on. Small hiatal hernia. Esophageal varices are present. Liver/biliary system: Mildly nodular surface to the liver. Caudate lobe is enlarged. No bile duct dil atation. There are a few scattered granulomata. Portal vein is normal. Gallbladder: Status post cholecystectomy. Pancreas: Moderate diffuse atrophy. Millimeters suggest extend superior from the distal pancreatic body. This was also present on 08/17/19 18 without increase in size. No pancreatic duct dilatation. Spleen: Mildly enlarged spleen measures 14.1 cm in length. No mass. Splenic varices. Adrenal glands: Normal. Right kidney: Normal. Left kidney: Normal size LEFT kidney. There are a few small cortical hypodensities which are too smal l to characterize. Parapelvic cysts. No obstruction. Aorta: Very mild atherosclerosis aorta. Normal enhancement of the mesenteric arteries. Lymphadenopathy: None. Free fluid: There is a very small amount of free fluid in the pelvis. There is also mild soft tissue anasarca and mesenteric edema. GI tract: Nondistended stomach. No small bowel obstruction. Mild constipation. Tortuous colon. The ap pendix is not definitely identified. No significant diverticular disease. There is a loop of distal s mall bowel extending close to the RIGHT inguinal canal. There are adjacent surgical sutures. There is no obstruction of the small bowel loops. These are closely in opposed to the abdominal wall but ther e is no obstruction. Small amount of tethering or adhesion not excluded. Abdominal wall: Ventral abdominal wall hernia. Mild soft tissue anasarca. Pelvis: Postsurgical changes along the anterior pelvis. Mild soft tissue edema. Prior hysterectomy. S mall amount of free fluid. Bones: L2, L3, L4 and L5 vertebroplasties Fractures and vertebroplasties are new since 2018. CT/CT abdomen pelvis w con* [id number] IMPRESSION: 1. 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 Spleen is enlarged an d there are numerous esophageal, gastric and splenic varices. 2. Mild soft tissue edema and anasarca. 3. Stable cystic mass from the distal body of the pancreas measures 9 mm. 4. Postsurgical changes along the anterior pelvis. There are closely adhered l oops of small bowel, similar to the prior study from 2018. No obstruction. 5. Prior hysterectomy and cholecystectomy.
== END 2021-10-12 08:11 | disposition home or self-care (01) ==
LOC: RAD 08:11
PROVIDERS: PCP Family Medicine; Visit Provider Family Medicine
DX: R10.9 Unspecified abdominal pain (principal); R74.01 Elevation of levels of liver transaminase levels; R63.4 Abnormal weight loss; R11.0 Nausea; R19.7 Diarrhea, unspecified; K74.60 Unspecified cirrhosis of liver; K76.6 Portal hypertension; R16.1 Splenomegaly, not elsewhere classified; R60.1 Generalized edema; Z90.710 Acquired absence of both cervix and uterus; Z90.49 Acquired absence of other specified parts of digestive tract
CPT/HCPCS: 74177

== ENCOUNTER → 2021-10-31 10:37 | Outpatient (BNVA) | payer MEDICARE, OTHER, SELFPAY | PROVIDERS: PCP Family Medicine; Visit Provider Family Medicine | DX: R30.0 Dysuria (principal); N39.0 Urinary tract infection, site not specified | CPT/HCPCS: 81000; 87077; 87086; 87184 ==

== ENCOUNTER → 2022-01-17 11:55 | Outpatient (BNVA) | payer MEDICARE, OTHER, SELFPAY | PROVIDERS: PCP Family Medicine; Visit Provider Family Medicine | DX: R30.0 Dysuria (principal); N39.0 Urinary tract infection, site not specified; R42 Dizziness and giddiness; M54.9 Dorsalgia, unspecified | CPT/HCPCS: 81000; 87077; 87086; 87184 ==

== ENCOUNTER → 2022-01-18 14:27 | Outpatient (BNVA) | payer MEDICARE, OTHER, SELFPAY | PROVIDERS: PCP Family Medicine; Visit Provider Physician Assistant | DX: M17.0 Bilateral primary osteoarthritis of knee (principal) | CPT/HCPCS: 20610; 99212; J7318 ==

== ENCOUNTER → 2022-02-20 13:58 | Outpatient (BNVA) | payer MEDICARE, OTHER, SELFPAY | PROVIDERS: PCP Family Medicine; Visit Provider Family Medicine | DX: R30.0 Dysuria (principal); R10.9 Unspecified abdominal pain | CPT/HCPCS: 81000; 87077; 87086; 87184 ==

== ENCOUNTER → 2022-03-22 11:00 | Outpatient (BNVA) | payer MEDICARE, OTHER, SELFPAY | PROVIDERS: PCP Family Medicine; Visit Provider Anesthesiology Pain Medicine | DX: M48.062 Spinal stenosis, lumbar region with neurogenic claudication (principal); S32.000A Wedge compression fracture of unspecified lumbar vertebra, initial encounter for closed fracture; M25.512 Pain in left shoulder; M79.605 Pain in left leg; X58.XXXA Exposure to other specified factors, initial encounter | CPT/HCPCS: 99205 ==

== ENCOUNTER → 2022-04-11 13:13 | Outpatient (BNVA) | payer MEDICARE, OTHER, SELFPAY | PROVIDERS: PCP Family Medicine; Visit Provider Anesthesiology Pain Medicine | DX: M54.16 Radiculopathy, lumbar region (principal) | CPT/HCPCS: 64483; 64484; J1100; J3490 ==

== ENCOUNTER → 2022-04-25 14:20 | Outpatient (BNVA) | payer MEDICARE, OTHER, SELFPAY | PROVIDERS: PCP Family Medicine; Visit Provider Anesthesiology Pain Medicine | DX: M54.16 Radiculopathy, lumbar region (principal) | CPT/HCPCS: 64483; 64484; J1100; J3490 ==

== ENCOUNTER → 2022-05-09 09:30 | Outpatient (BNVA) | payer MEDICARE, OTHER, SELFPAY | PROVIDERS: PCP Family Medicine; Visit Provider Anesthesiology Pain Medicine | DX: M48.062 Spinal stenosis, lumbar region with neurogenic claudication (principal); S32.000A Wedge compression fracture of unspecified lumbar vertebra, initial encounter for closed fracture; X58.XXXA Exposure to other specified factors, initial encounter; M25.512 Pain in left shoulder | CPT/HCPCS: 99213 ==

== ENCOUNTER → 2022-05-14 15:20 | Outpatient (BNVA) | payer MEDICARE, OTHER, SELFPAY | PROVIDERS: PCP Family Medicine; Visit Provider Family Medicine | DX: R10.9 Unspecified abdominal pain (principal); N39.0 Urinary tract infection, site not specified | CPT/HCPCS: 81003; 87077; 87086; 87184 ==

== ENCOUNTER → 2022-06-18 15:53 | Outpatient (BNVA) | payer MEDICARE, OTHER, SELFPAY | PROVIDERS: PCP Family Medicine; Visit Provider Family Medicine | DX: N39.0 Urinary tract infection, site not specified (principal); R30.0 Dysuria | CPT/HCPCS: 81003; 87086 ==

== ENCOUNTER → 2022-08-09 09:16 | Outpatient (BNVA) | payer MEDICARE, OTHER, SELFPAY | PROVIDERS: PCP Family Medicine; Visit Provider Anesthesiology Pain Medicine | DX: M48.062 Spinal stenosis, lumbar region with neurogenic claudication (principal); S32.000A Wedge compression fracture of unspecified lumbar vertebra, initial encounter for closed fracture; X58.XXXA Exposure to other specified factors, initial encounter | CPT/HCPCS: 99214 ==

== ENCOUNTER 2022-08-16 08:40 | Outpatient (CLI) | payer MEDICARE, OTHER, SELFPAY ==
--- NOTE | 2022-08-16 08:53 | MR_ITS ---
WS: [id number] MRI LEFT SHOULDER NONCONTRAST TECHNIQUE: Sagittal T2, coronal T1, T2 and proton density imaging. Axial gradient PDE imaging. CLINICAL INFORMATION: ROTATOR CUFF TEAR ARTHROPATHY,LEFT COMPARISON: None. FINDINGS: Moderate degenerative arthritis AC joint with mild edema. Mild downsloping acromion with mild narrowi ng of the subacromial space. Chronic thinning of the distal supraspinatus. Tiny insertional tear dist al supraspinatus. Trace subacromial/subdeltoid fluid. Normal infraspinatus. Normal teres minor. Subsc apularis appears intact. Biceps tendon appears intact within the bicipital groove. Advanced degenerative arthritis glenohumeral articulation with hypertrophic changes. Subchondral cyst ic change involving the humeral head and greater tuberosity. Biceps labral anchor appears intact. Int ra-articular biceps tendon appears intact. Degenerative fraying of the glenoid labrum. Surgical clips LEFT axilla with susceptibly artifact. MR/MR shoulder LT wo con* [id number] IMPRESSION: 1. Moderate degenerative arthritis AC joint with mild downsloping acromion wit h slight impingement on the distal supraspinatus. 2. Rotator cuff is intact. Mild chronic thinning of the supraspinatus. 3. Tiny insertional tear distal supraspinatus. 4. Biceps tendon appears intact within the bicipital groove. Intra-articular b iceps tendon appears intact. 5. Advanced degenerative arthritis glenohumeral articulation with joint space narrowing.
== END 2022-08-16 08:41 | disposition home or self-care (01) ==
PROVIDERS: PCP Family Medicine; Visit Provider Orthopaedic Surgery
DX: M19.012 Primary osteoarthritis, left shoulder (principal); M25.512 Pain in left shoulder
CPT/HCPCS: 73221

== ENCOUNTER → 2022-08-27 13:51 | Outpatient (BNVA) | payer MEDICARE, OTHER, SELFPAY | PROVIDERS: PCP Family Medicine; Visit Provider Family Medicine | DX: R10.13 Epigastric pain (principal); R16.0 Hepatomegaly, not elsewhere classified; Z51.81 Encounter for therapeutic drug level monitoring; I10 Essential (primary) hypertension; Z79.899 Other long term (current) drug therapy | CPT/HCPCS: 80053; 82140; 83690; 85025; 85651; 86141 ==

== ENCOUNTER 2022-10-31 11:39 | Outpatient (CLI) | payer MEDICARE, OTHER, SELFPAY ==
--- NOTE | 2022-10-31 11:44 | CT_ITS ---
WS: [id number] CT ABDOMEN AND PELVIS WITH CONTRAST HISTORY: ABDOMINAL MASS ON EXAM TECHNIQUE: Imaging performed of the abdomen and pelvis with IV contrast. Single phase imaging of the abdomen. Coronal and sagittal reformats are submitted. All CT scans at [facility] use at [facility] [facility] one of these dose optimization techniques: automated exposure control; mA and/or kV adjustment per patient size (includes targeted exams where dose is matched to clinical indication); or iterative re construction. IV CONTRAST: Omnipaque 350; 100 mL IV. Oral contrast: Yes. DLP: 603.15 mGy.cm COMPARISON: Chest CT 02/17/2013, CT abdomen and pelvis 10/12/2021 Lower thorax: There are 2 well-circumscribed nodules in the LEFT lower lung field. The largest measur es 8 mm. This has not been previously visualized. There is a smaller nodule measuring 6 mm in the LEF T lower lobe. This 6 mm nodule is stable. Moderate cardiomegaly. Small hiatal hernia. Associated esop hageal varices. Liver/biliary system: Nodular surface of the liver. LEFT lobe of the liver is enlarged. No masses in the liver. Normal enhancement of the portal vein. Gallbladder: Cholecystectomy. Pancreas: Fatty replacement and atrophy of the pancreas. Reidentified is a cystic nodule at the pancr eatic tail. There are additional cystic nodules which may have been present on prior studies but poor ly visualized due to their small size and slice selection. The largest is 10 mm and unchanged. Spleen: 13.7 cm in length. Spleen is enlarged. 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 Adrenal glands: Normal. Right kidney: Normal. Left kidney: Parapelvic cysts. Additional cortical cysts in the lower pole measure up to 8 mm. No int erval change since 2021. Aorta: Mild atherosclerosis with no aneurysm. Lymphadenopathy: Small subcentimeter mesenteric lymph nodes. No adenopathy. Free fluid: None. GI tract: Stomach is nondistended. No small bowel obstruction. There is moderate retained fecal mater ial throughout the colon. There is mild wall thickening at the cecum. This is a new finding since the prior study. Could be retained fecal material. There is a fat-containing mass within the wall of the colon consistent with a lipoma. Mild diverticular burden in the distal colon. Abdominal wall: Fat containing umbilical hernia. Pelvis: No free fluid or adenopathy within the pelvis. Urinary bladder is nondistended. Nondistention causing mild thickening of the bladder wall. Bones: Bones are markedly osteopenic. Prior vertebral plasties from L2-L5. IMPRESSION: 1. No mass in the RIGHT upper quadrant is identified. 2. LEFT lobe of the liver becomes very superficial with bulging of the ventral abdominal wall muscul ature. This may be the palpable finding. 3. Cirrhosis with portal venous hypertension and numerous varices in the upper abdomen. 4. Mild soft tissue thickening involving the cecum. There is also an associated lipoma. Cannot exclu de cecal neoplasm. This can be further evaluated by follow-up colonoscopy or repeat CT imaging with I V and oral contrast in 2 to 3 months. 5. Diffuse constipation. 6. No ascites or adenopathy. 7. Prior cholecystectomy, hysterectomy and appendectomy.
[2022-10-31] MEDS: iohexol 350 mg/mL 500 mL Btl (per mL) PO (13:17)
[2022-10-31 13:26] LABS: Blood Urea Nitrogen 9 mg/dL (8-23)
[2022-10-31] MEDS: iohexol 350 mg/mL 500 mL Btl (per mL) IV (13:53)
== END 2022-10-31 11:40 | disposition home or self-care (01) ==
PROVIDERS: PCP Family Medicine; Visit Provider Family Medicine
DX: R19.00 Intra-abdominal and pelvic swelling, mass and lump, unspecified site (principal); K74.60 Unspecified cirrhosis of liver; K76.6 Portal hypertension; I86.4 Gastric varices; I86.8 Varicose veins of other specified sites; D17.5 Benign lipomatous neoplasm of intra-abdominal organs; K59.00 Constipation, unspecified; Z90.49 Acquired absence of other specified parts of digestive tract; Z90.89 Acquired absence of other organs; Z90.710 Acquired absence of both cervix and uterus
CPT/HCPCS: 74177; 82565; 84520; Q9967

== ENCOUNTER → 2023-01-07 14:22 | Outpatient (BNVA) | payer MEDICARE, OTHER, SELFPAY | PROVIDERS: PCP Family Medicine; Visit Provider Family Medicine | DX: N39.0 Urinary tract infection, site not specified (principal) | CPT/HCPCS: 81000; 87077; 87086; 87184 ==

== ENCOUNTER → 2023-04-03 12:02 | Outpatient (BNVA) | payer MEDICARE, OTHER, SELFPAY | PROVIDERS: PCP Family Medicine; Visit Provider Family Medicine | DX: Z51.81 Encounter for therapeutic drug level monitoring (principal); R73.09 Other abnormal glucose; E55.9 Vitamin D deficiency, unspecified; R26.81 Unsteadiness on feet; R19.00 Intra-abdominal and pelvic swelling, mass and lump, unspecified site; L29.9 Pruritus, unspecified; E87.70 Fluid overload, unspecified; R16.0 Hepatomegaly, not elsewhere classified | CPT/HCPCS: 80053; 82306; 83036; 85025 ==

== ENCOUNTER 2023-06-03 12:16 | Inpatient (IN) | payer MEDICARE, OTHER, SELFPAY ==
[2023-06-03] VITALS (15 sets, daily range): BP systolic 122–174; BP diastolic 52–89; PULSE 80–96; RESP 15–22; TEMP 36.9–38.5; O2SAT 93–100; BMI 31.8
--- NOTE | 2023-06-03 12:25 | XRR_ITS ---
PROCEDURE INFORMATION: Exam: XR Chest Exam date and time: 06/03/2023 12:53 PM Age: 88 years old Clinical indication: Cough and dyspnea; Additional info: Dyspnea/cough TECHNIQUE: Imaging protocol: Radiologic exam of the chest. Views: 1 view. COMPARISON: CR XR chest 2V* [id number] 09/14/2021 5:14 PM FINDINGS: Lungs: Unremarkable. No consolidation. Pleural spaces: Unremarkable. No pleural effusion. No pneumothorax. Heart/Mediastinum: Cardiac silhouette appears mildly enlarged on this portable chest. Bones/joints: Unremarkable. XR/XR chest 1V portable [id number] IMPRESSION: Mild cardiomegaly otherwise negative chest.
--- NOTE | 2023-06-03 12:25 | ECG_ITS ---
[facility] Test Date: 2023-06-03 Pat Name: Mary Ellen Benjamin Department: Room: Gender: Female [employer]visor [employer]: : 1935 Requested By: Pa Fontenot Order Number: [id number] Pastor MD: Jimbo Roy M.D. Measurements Intervals [place] Rate: 88 P: 67 MT: 182 QRS: -15 QRSD: 68 T: 27 QT: 357 QTc: 434 Interpretive Statements SINUS RHYTHM LOW QRS VOLTAGE IN PRECORDIAL LEADS [QRS DEFLECTION < 1.0 mV IN CHEST LEADS] Compared to ECG 08/17/2021 15:48:52 Low QRS voltage now present Electronically Signed On 06-03-2023 16:29:00 CDT by Jimbo Roy M.D. [id number]
--- NOTE | 2023-06-03 12:25 | CT_ITS ---
WS: [id number] Examination: CT head wo con* [id number] Reason for Exam: fall/trauma Date: June 03, 2023 Comparison: August 17, 2021 DLP: 1094.[address] scans at [facility] use at least one of these dose optimization techniques: automated e xposure control; mA and/or kV adjustment per patient size (includes targeted exams where dose is matc hed to clinical indication); or iterative reconstruction. Findings: The visualized paranasal sinuses are well aerated. No depressed skull fracture is identified. There is age-appropriate volume loss and atrophy. There is no midline shift or hydrocephalus Extensive white matter changes are present. There is no intracranial hemorrhage or hematoma. Impression: There is no intracranial hemorrhage or hematoma.
[2023-06-03 13:13] LABS: White Blood Count 15.05 10^3/uL (3.29-11.43)
[2023-06-03 13:14] LABS: Basophils % 0.1 %; Hematocrit 36.7 % (36-47); Lymphocytes # 0.4 10^3/uL (0.8-4.8); Lymphocytes % 2.5 %; Mean Corpuscular HGB Conc 32.4 g/dL (30-55); Mean Corpuscular Hemoglobin 28.5 pg (27-33); Mean Platelet Volume 10.4 fL (7.4-10.4); Monocytes % 6.8 %; Neutrophils # 13.49 10^3/uL (1.8-7.7); Neutrophils % 89.6 %; Nucleated Red Blood Cells % 0 %; Platelet Count 128 10^3/cmm (157-399); Red Blood Count 4.17 10^6/uL (3.85-5.65); Red Cell Distribution Width 14.1 % (12.1-15.1)
[2023-06-03 13:33] LABS: Alanine Aminotransferase 22 U/L (0-33); Albumin Level 3.8 g/dL (3.5-5.2); Alkaline Phosphatase 129 U/L (35-105); Anion Gap 15.2 (5-19); Aspartate Amino Transferase 66 U/L (0-32); Blood Urea Nitrogen 16 mg/dL (8-23); Calcium 9.4 mg/dL (8.5-10.5); Carbon Dioxide 22 mmol/L (22-29); Chloride 103 mmol/L (98-107); Globulin 2.8 g/dL (1.3-4.6); Glucose 201 mg/dL (65-115); Osmolality Calculated 289 mOsm/kg (285-295); Potassium 4.2 mmol/L (3.5-5.1); Sodium 136 mmol/L (136-145); Total Bilirubin 1.2 mg/dL (0.15-1.2); Total Protein 6.6 g/dL (6.6-8.7)
--- NOTE | 2023-06-03 13:38 | CT_ITS ---
WS: [id number] Examination: CT lumbar spine wo con* [id number] Reason for Exam: Fall history of compression fractures acute worsening back p Date: June 03, 2023 Comparison: Sagittal images of the thoracic spine from a CT abdomen pelvis dated October 31, 2022. DLP: 868.[address] scans at [facility] use at least one of these dose optimization techniques: automated e xposure control; mA and/or kV adjustment per patient size (includes targeted exams where dose is matc hed to clinical indication); or iterative reconstruction. Findings: The bone density is diminished. There is no destruction. T12 and L1 are maintained in height. There is superior endplate compression of L2 with previous vertebroplasty. This is stable. There is mild endplate compression at L3 with previous vertebroplasty. This appears stable. There is limited compression of L4 with previous vertebroplasty. This is stable. There is mild to moderate superior endplate compression of L5 with previous vertebroplasty. This is s table. At L1-2 there is left-sided disc asymmetry with encroachment upon the left canal neural foramen. The canal is mildly encroached upon by the superior posterior aspect of L2 from previous fracture. This i s stable. At L2-3 there is moderate to greater canal narrowing due to disc abnormality as well as facet and lig amentum flavum hypertrophy. Moderate to greater canal narrowing is identified at L3-4 due to disc bulging along with facet and li gamentum flavum hypertrophy. Mild to moderate canal narrowing at L4-5 is identified secondary to disc bulging as well as facet and ligamentum flavum hypertrophy. The spleen appears prominent in size. Impression: There is osteopenia. Previous compressions and vertebral fractures are noted from L2 through L5. Thi s appears stable. T12 and L1 appear maintained. Multilevel degenerative changes are noted. If pain continues I recommend MR for further evaluation.
--- NOTE | 2023-06-03 13:41 | ED_ITS ---
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 Overnight she was trying to get out of bed to use the bedside commode she thinks it was around 1230 last night she slipped and fell and hit the floor eventually family was contacted earlier this morning and called [facility] she was helped back into bed but she refused transport she was then called back about 30 minutes later complaining of increased back pain and weakness. She has had a little burning with urination recently. Denies any fever sweats chills nausea vomiting or diarrhea. No chest pain or abdominal pain. MD complaint: fall Onset (ago): hour(s) Fall from: standing Fall witnessed: no Place fall occurred: home Loss of consciousness: Unsure Prolonged down time: yes and hour(s) Context: tripped/slipped Location of injury: back Severity: moderate Associated symptoms-after fall: Denies abdominal pain, chest pain or neck pain Review of Systems 2 Const: Denies: fever(s) or chills Card: Denies: chest pain Resp: Denies: dyspnea GI: Denies: abdominal pain : Denies: dysuria, urinary frequency or urinary urgency Musc: Denies: neck pain or back pain Skin/Breast: Denies: rash PFSH ED 2 PFSH: Medical History Compression fracture Lumbar stress fracture History of nonmelanoma skin cancer History of malignant melanoma HTN (hypertension) History of melanoma History of breast cancer Surgical History Hx of spinal surgery L4/5 laminectomy History of ventral hernia repair History of cholecystectomy History of mastectomy History of hysterectomy History of bladder repair surgery Family History Other Hypertension Social History Smoking and tobacco/nicotine status: never used tobacco/nicotine Physical Exam 2 Const: COMMON NORMALS: no acute distress GENERAL APPEARANCE: cooperative and comfortable ORIENTATION/CONSCIOUSNESS: Yes awake, Yes oriented to person, Yes oriented to place and Yes oriented to time HENMT: COMMON NORMALS: normocephalic, atraumatic and hearing grossly normal bilaterally HEAD & SCALP: normocephalic and atraumatic Resp: COMMON NORMALS: normal respiratory effort, No retractions, No use of accessory muscles and clear to auscultation bilaterally AUSCULTATION: clear to auscultation bilaterally Cardio: COMMON NORMALS: regular rate, regular rhythm and No murmurs present (Cardio) RATE: regular rate RHYTHM: regular rhythm GI: COMMON NORMALS: Soft to palpation and No hepatosplenomegaly present A USCULTATION: Yes normoactive bowel sounds PALPATION: Yes Soft to palpation, No Tenderness to palpation present (GI), No Guarding due to palpation present (GI) and Yes No hepatosplenomegaly present Extremity: COMMON NORMALS: normal to inspection, capillary refill normal, no clubbing, cyanosis or edema, no calf tenderness and no pedal edema Neuro: SENSORIUM/ORIENTATION: Yes oriented to person, Yes oriented to place and Yes oriented to time Skin: COMMON NORMALS: no rashes or lesions noted GENERAL SKIN EXAM: no rashes or lesions noted Course 2 Vital Signs: Vital signs: Vital Signs Temperature 98.5 F 06/03/23 12:20 Pulse Rate 83 06/03/23 12:20 Respiratory Rate 16 06/03/23 14:41 Blood Pressure 158/86 06/03/23 13:34 Pulse Oximetry 95 06/03/23 14:41 Oxygen Delivery Me thod Room Air 06/03/23 12:20 MDM - Fall Medical Decision Making Patient had couple of falls in the last 12 hours. She is unable to get up and go to the bedside commode without assistance. She does have some mild met rhabdomyolysis and is cystitis. She is already been having falls at home in the past as well as the episodes today she is a bedside commode because of her limited mobility at home family is concerned that she may need to be at a higher level of care she has been admitted to the retirement before but was not very happy about it resulted after the lumbar compression fractures. She is given IV fluids and Rocephin was pain medication CT did not show any acute fractures. Will admit for continued IV fluids and antibiotics and evaluation of her ability to maintain at home possible admission to the retirement briefly discussed with family and the patient. Medical Records I reviewed the patient's medical records. Lab Data I reviewed the patient's lab results. 06/03/23 13:08 06/03/23 13:08 Radiology Impressions Chest X-Ray 06/03/23 12:25 IMPRESSION: Mild cardiomegaly otherwise negative chest. Laboratory Results WBC 15.05 10^3/uL (3.29-11.43) H 06/03/23 13:08 RBC 4.17 10^6/uL (3.85-5.65) 06/03/23 13:08 Hgb 11.90 g/dL (11.27-16.99) 06/03/23 13:08 Hct 36.7 % (36-47) 06/03/23 13:08 MCV 88.0 fl (85-98) 06/03/23 13:08 MCH 28.5 pg (27-33) 06/03/23 13:08 MCHC 32.4 g/dL (30-55) 06/03/23 13:08 RDW 14.1 % (12.1-15.1) 06/03/23 13:08 Plt Count 128 10^3/cmm (157-399) L 06/03/23 13:08 MPV 10.4 fL (7.4-10.4) 06/03/23 13:08 Neut % (Auto) 89.6 % 06/03/23 13:08 Lymph % (Auto) 2.5 % 06/03/23 13:08 [place] % (Auto) 6.8 % 06/03/23 13:08 Eos % (Auto) 0.0 % 06/03/23 13:08 Baso % (Auto) 0.1 % 06/03/23 13:08 Neut # (Auto) 13.49 10^3/uL (1.8-7.7) H 06/03/23 13:08 Lymph # (Auto) 0.4 10^3/uL (0.8-4.8) L 06/03/23 13:08 [place] # (Auto) 1.0 10^3/uL (0.2-0.9) H 06/03/23 13:08 Eos # (Auto) 0.0 10^3/uL (0.0-0.8) 06/03/23 13:08 Baso # (Auto) 0.0 10^3/uL (0.0-0.1) 06/03/23 13:08 Nucleated RBC % (auto) 0 % 06/03/23 13:08 Nucleated RBCs # 0.0 /100WBC 06/03/23 13:08 Sodium 136 mmol/L (136-145) 06/03/23 13:08 Potassium 4.2 mmol/L (3.5-5.1) 06/03/23 13:08 Chloride 103 mmol/L (98-107) 06/03/23 13:08 Carbon Dioxide 22 mmol/L (22-29) 06/03/23 13:08 Anion Gap 15.2 (5-19) 06/03/23 13:08 BUN 16 mg/dL (8-23) 06/03/23 13:08 Creatinine 0.6 mg/dL (0.5-0.9) 06/03/23 13:08 GFR Calculation Not Reportable 06/03/23 13:08 Glucose 201 mg/dL (65-115) H 06/03/23 13:08 Calculated Osmolality 289 mOsm/kg (285-295) 06/03/23 13:08 Calcium 9.4 mg/dL (8.5-10.5) 06/03/23 13:08 Total Bilirubin 1.2 mg/dL (0.15-1.2) 06/03/23 13:08 AST 66 U/L (0-32) H 06/03/23 13:08 ALT 22 U/L (0-33) 06/03/23 13:08 Alkaline Phosphatase 129 U/L (35-105) H 06/03/23 13:08 Creatine Kinase 1476 U/L (26-192) H* 06/03/23 13:08 Total Protein 6.6 g/dL (6.6-8.7) 06/03/23 13:08 Albumin 3.8 g/dL (3.5-5.2) 06/03/23 13:08 Globulin 2.8 g/dL (1.3-4.6) 06/03/23 13:08 Urine Color Yellow (Yellow) 06/03/23 15:30 Urine Appearance Clear (CLEAR) 06/03/23 15:30 Urine pH 6.5 (5-7) 06/03/23 15:30 Ur Specific [place] 1.010 (1.005-1.030) 06/03/23 15:30 Urine Protein 1+ (Negative) H 06/03/23 15:30 Urine Glucose (UA) Norm (Normal) 06/03/23 15:30 Urine Ketones Negative (Negative) 06/03/23 15:30 Urine Blood 3+ (Negative) H 06/03/23 15:30 Urine Nitrate Negative (Negative) 06/03/23 15:30 Urine Bilirubin Neg (Negative) 06/03/23 15:30 Urine Urobilinogen 1 mg/dL (Negative) H 06/03/23 15:30 Ur Leukocyte Esterase Negative (Negative) 06/03/23 15:30 Urine RBC 0-4 /hpf (0-2) H 06/03/23 15:30 Urine WBC 5-10 /hpf (0-5) H 06/03/23 15:30 Ur Squamous Epith Cells 0-4 /hpf (0-5) H 06/03/23 15:30 Amorphous Sediment Not Reportable 06/03/23 15:30 Urine Bacteria 4+ /hpf (NONE) H 06/03/23 15:30 All radiology interpretation(s) finalized by discharge Discharge Plan Discharge Patient Disposition: Placed in Observation Clinical Impression: Cystitis, Back pain, Multiple falls, Rhabdomyolysis Coding Level of Care Code ED Stonemason Helper for Isai Estrella
[2023-06-03 13:52] LABS: Creatine Phosphokinase 1476 U/L (26-192)
[2023-06-03] MEDS: morphine 4 mg/mL SDV 1 mL 2 MG IVP (14:41)
[2023-06-03] MEDS: sodium chloride 0.9% 1,000 ML 999 ML IV (14:59)
[2023-06-03 16:02] LABS: Add Urine Microscopic? YES; Bilirubin Urine Neg (Negative); Blood Urine 3+ (Negative); Glucose Urine UA Norm (Normal); Ketones Urine Negative (Negative); Leukocyte Esterase Urine Negative (Negative); Nitrate Urine Negative (Negative); Protein Urine 1+ (Negative); RBC Urine 0-4 /hpf (0-2); Squamous Epithelial Cell Urine 0-4 /hpf (0-5); Urine Appearance Clear (CLEAR); Urine Color Yellow (Yellow); Urobilinogen Urine 1 mg/dL (Negative); pH Urine 6.5 (5-7)
[2023-06-03 16:03] LABS: Add Urine Culture? Yes; Bacteria Urine 4+ /hpf
[2023-06-03] MEDS: cefTRIAXone 1,000 MG in sodium chloride 0.9% (plus) 50 ML 100 MG IV (16:19)
--- NOTE | 2023-06-03 16:43 | PM.HP ---
Providers/Chief Complaint Primary Care Provider: Eduin Zeng MD Chief Complaint: fall,dizzy History of Present Illness Mary Ellen Benjamin is a 88 year old female with past medical history of high blood pressure, lumbar stenosis who presented to the ER today after sustaining fall last night. Patient states she usually wakes up every night to pass urine and so has a bedside commode. Yesterday while getting up from bedside commode to go back to the bed she fell and was not able to get up for the whole night. Today morning when her daughter came to check up on her she was found on the floor awake and alert and was brought to the ER. Currently patient is complaining of back pain. She denies any nausea, vomiting, headache, subjective fever fever, diarrhea but does complain of itching while passing urine. Denies any burning or painful urination. Review of Systems General: Reports: 10 or more systems reviewed and unremarkable except in HPI and below Const: Denies: fever(s), chills, body aches, change in appetite, change in weight, malaise, night sweats, diaphoresis, change in sleep pattern, daytime sleepiness or snoring Eyes: Denies: change in vision, blurry vision, photophobia, eye discomfort or eye discharge ENMT: Denies: throat pain, enlarged tonsils, hoarseness, mouth pain, oral sores, dry mouth, tinnitus, nasal congestion or post nasal drip Card: Denies: chest pain, palpitations, irregular heart rhythm, edema, swelling of feet/ankles, lightheadedness, syncope, pre-syncope, dyspnea on exertion, orthopnea, leg pain with exertion or acrocyanosis Resp: Denies: dyspnea, productive cough, non-productive cough, wheezing, stridor, pain on inspiration, change in phlegm color, hemoptysis or chest congestion GI: Denies: abdominal pain, nausea, vomiting, hematemesis, coffee ground emesis, dysphagia, heartburn, diarrhea, constipation, bloating, GI cramping, change in bowel habits, pain on defecation, hematochezia or melena : Denies: flank pain, dysuria, urinary frequency, urinary urgency, urinary hesitancy, nocturia or hematuria Musc: Denies: neck pain, back pain, extremity pain, joint pain, joint swelling, joint redness, joint stiffness or limited range of motion Neuro: Denies: headache(s), numbness in extremities, weakness in extremities, sensory changes, lack of coordination, difficulty walking, frequent falls, dizziness, vertigo, confusion, Slurred speech present, difficulty communicating thoughts or seizure-like activity Psych: Denies: anxiety, depression, mood swings, panic attacks, hopelessness or irritability Endo: Denies: polyuria, polydipsia, tired all the time, cold intolerance, excessive sweating, flushing or heat intolerance Toñito/Lymph: Denies: easy bruising or easy bleeding All/Imm: Denies: tongue swelling, facial swelling or acute wheezing Medications/Allergies Home Medications Medication Instructions Recorded Confirmed Last Taken Type calcium carb-vit D3-minerals 600 1 tab PO DAILY 10/13/21 06/03/23 06/02/23 History mg calcium-400 unit tablet furosemide 40 mg tablet 40 mg PO DAILY #30 tabs 09/10/22 06/03/23 06/02/23 Rx losartan 100 mg tablet 100 mg PO DAILY #90 tabs 02/26/23 06/03/23 06/02/23 Rx spironolactone 25 mg tablet 25 mg PO DAILY #30 tabs 02/26/23 06/03/23 06/02/23 Rx hydroxyzine HCl 10 mg tablet 10 mg PO .QHS PRN itching #30 tabs 03/05/23 06/03/23 06/02/23 Rx ketoconazole 2 % shampoo 1 applic topical Q14D #120 mL 04/03/23 06/03/23 Unknown Rx cholecalciferol (vitamin D3) 50 50 mcg PO DAILY #30 caps 04/04/23 06/03/23 06/02/23 Rx mcg (2,000 unit) capsule hydrocodone 5 mg-acetaminophen 325 1 tab PO Q8H PRN pain 30 days #90 04/22/23 06/03/23 Unknown Rx mg tablet tabs amlodipine 10 mg tablet 10 mg PO DAILY 06/03/23 06/03/23 06/02/23 History Allergies Allergy/AdvReac Type Severity Reaction Status Date / Time aspirin Allergy rash Verified 06/03/23 13:27 Sulfa (Sulfonamide Allergy hives Verified 06/03/23 13:27 Antibiotics) cephalexin [From Keflex] AdvReac Mild ADR-Itching Verified 06/03/23 13:27 naproxen [From Aleve] AdvReac Mild ADR-Nausea Verified 06/03/23 13:27 PFSH Acute PFSH: Medical History Compression fracture Lumbar stress fracture History of nonmelanoma skin cancer History of malignant melanoma HTN (hypertension) History of melanoma History of breast cancer Surgical History Hx of spinal surgery L4/5 laminectomy History of ventral hernia repair History of cholecystectomy History of mastectomy History of hysterectomy History of bladder repair surgery Family History Other Hypertension Social History Smoking and tobacco/nicotine status: never used tobacco/nicotine Vitals/I&O/Wt Last Vital Signs Temp 98.5 F 06/03/23 12:20 Pulse 83 06/03/23 12:20 Resp 16 06/03/23 14:41 BP 158/86 06/03/23 13:34 Pulse Ox 95 06/03/23 14:41 O2 Del Method Room Air 06/03/23 12:20 Weight last 48 hrs Weight 81.647 kg Physical Exam Narrative: General: No acute distress, AO x3, dehydrated HEENT: PERRLA, pupils bilaterally equal and reactive Chest: Normal vesicular breath sounds, no added sounds, equal good air entry bilaterally CVS: S1-S2 regular, no murmurs, no tachycardia, no gallops, no rubs Abdomen: Soft, nontender, no organomegaly, bowel sounds present Neuro: No focal deficits, no facial deformity, AO x3, power 5/5 in all limbs Extremities: Bilateral straight leg test positive. Urinary Catheter Management: Roa: Cath Placed During This Visit: yes Urinary Catheter Date of Insertion: 06/03/23 Urinary Catheter Time of Insertion: 15:25 Data 06/03/23 13:08 06/03/23 13:08 Other Labs: Radiology Impressions Chest X-Ray 06/03/23 12:25 IMPRESSION: Mild cardiomegaly otherwise negative chest. Laboratory Results WBC 15.05 10^3/uL (3.29-11.43) H 06/03/23 13:08 RBC 4.17 10^6/uL (3.85-5.65) 06/03/23 13:08 Hgb 11.90 g/dL (11.27-16.99) 06/03/23 13:08 Hct 36.7 % (36-47) 06/03/23 13:08 MCV 88.0 fl (85-98) 06/03/23 13:08 MCH 28.5 pg (27-33) 06/03/23 13:08 MCHC 32.4 g/dL (30-55) 06/03/23 13:08 RDW 14.1 % (12.1-15.1) 06/03/23 13:08 Plt Count 128 10^3/cmm (157-399) L 06/03/23 13:08 MPV 10.4 fL (7.4-10.4) 06/03/23 13:08 Neut % (Auto) 89.6 % 06/03/23 13:08 Lymph % (Auto) 2.5 % 06/03/23 13:08 [place] % (Auto) 6.8 % 06/03/23 13:08 Eos % (Auto) 0.0 % 06/03/23 13:08 Baso % (Auto) 0.1 % 06/03/23 13:08 Neut # (Auto) 13.49 10^3/uL (1.8-7.7) H 06/03/23 13:08 Lymph # (Auto) 0.4 10^3/uL (0.8-4.8) L 06/03/23 13:08 [place] # (Auto) 1.0 10^3/uL (0.2-0.9) H 06/03/23 13:08 Eos # (Auto) 0.0 10^3/uL (0.0-0.8) 06/03/23 13:08 Baso # (Auto) 0.0 10^3/uL (0.0-0.1) 06/03/23 13:08 Nucleated RBC % (auto) 0 % 06/03/23 13:08 Nucleated RBCs # 0.0 /100WBC 06/03/23 13:08 Sodium 136 mmol/L (136-145) 06/03/23 13:08 Potassium 4.2 mmol/L (3.5-5.1) 06/03/23 13:08 Chloride 103 mmol/L (98-107) 06/03/23 13:08 Carbon Dioxide 22 mmol/L (22-29) 06/03/23 13:08 Anion Gap 15.2 (5-19) 06/03/23 13:08 BUN 16 mg/dL (8-23) 06/03/23 13:08 Creatinine 0.6 mg/dL (0.5-0.9) 06/03/23 13:08 GFR Calculation Not Reportable 06/03/23 13:08 Glucose 201 mg/dL (65-115) H 06/03/23 13:08 Calculated Osmolality 289 mOsm/kg (285-295) 06/03/23 13:08 Calcium 9.4 mg/dL (8.5-10.5) 06/03/23 13:08 Total Bilirubin 1.2 mg/dL (0.15-1.2) 06/03/23 13:08 AST 66 U/L (0-32) H 06/03/23 13:08 ALT 22 U/L (0-33) 06/03/23 13:08 Alkaline Phosphatase 129 U/L (35-105) H 06/03/23 13:08 Creatine Kinase 1476 U/L (26-192) H* 06/03/23 13:08 Total Protein 6.6 g/dL (6.6-8.7) 06/03/23 13:08 Albumin 3.8 g/dL (3.5-5.2) 06/03/23 13:08 Globulin 2.8 g/dL (1.3-4.6) 06/03/23 13:08 Urine Color Yellow (Yellow) 06/03/23 15:30 Urine Appearance Clear (CLEAR) 06/03/23 15:30 Urine pH 6.5 (5-7) 06/03/23 15:30 Ur Specific [place] 1.010 (1.005-1.030) 06/03/23 15:30 Urine Protein 1+ (Negative) H 06/03/23 15:30 Urine Glucose (UA) Norm (Normal) 06/03/23 15:30 Urine Ketones Negative (Negative) 06/03/23 15:30 Urine Blood 3+ (Negative) H 06/03/23 15:30 Urine Nitrate Negative (Negative) 06/03/23 15:30 Urine Bilirubin Neg (Negative) 06/03/23 15:30 Urine Urobilinogen 1 mg/dL (Negative) H 06/03/23 15:30 Ur Leukocyte Esterase Negative (Negative) 06/03/23 15:30 Urine RBC 0-4 /hpf (0-2) H 06/03/23 15:30 Urine WBC 5-10 /hpf (0-5) H 06/03/23 15:30 Ur Squamous Epith Cells 0-4 /hpf (0-5) H 06/03/23 15:30 Amorphous Sediment Not Reportable 06/03/23 15:30 Urine Bacteria 4+ /hpf (NONE) H 06/03/23 15:30 Urine Opiates Screen Positive ng/mL (Negative) H 06/03/23 15:30 Ur Barbiturates Screen Negative ng/mL (Negative) 06/03/23 15:30 Ur Phencyclidine Scrn Negative ng/mL (Negative) 06/03/23 15:30 Ur Amphetamines Screen Negative ng/mL (Negative) 06/03/23 15:30 U Benzodiazepines Scrn Negative ng/mL (Negative) 06/03/23 15:30 Urine Cocaine Screen Negative ng/mL (Negative) 06/03/23 15:30 U Marijuana (THC) Screen Negative ng/mL (Negative) 06/03/23 15:30 A&P Assessment and plan (1) Fall: Mechanical. Complicated by rhabdomyolysis. CT head and lumbar CT negative for acute or normality. Denies any hip pain. Complaining of elbow pain. Will get right elbow x-ray. Physical therapy. Continue with home dose of [place] 5 mg every 8 hours as needed for pain. Morphine for breakthrough pain. (2) Rhabdomyolysis: In setting of fall. CPK 1400. Normal saline at 75 cc/h. Repeat CPK in AM. No renal dysfunction for now. (3) Cystitis: Questionable symptoms. History of recurrent UTIs. Most recent UTI with E. coli pansensitive. For now start on IV ceftriaxone. (4) Vitamin D deficiency: History of vitamin D deficiency. Most recently checked in March. Start on oral vitamin D supplementation. Plan Hypertension: Goal blood pressure less than 140/90 mmHg. Continue with home dose of amlodipine and losartan. Cardiac diet Physical therapy Famotidine for PUD prophylaxis Heparin 5000 every 12 hourly for DVT prophylaxis. CODE STATUS: Daughter will be the DPOA. Patient does not want any kind of heroic measures. DNR/DNI. Discharge planning: Discussed in detail with the patient. She would prefer to go home if possible but if needed is open for short-term SNF placement. Will evaluate after PT evaluation. Attestations Medical Necessity Statement*: Admission for more than 2 midnights for management of acute UTI, rhabdomyolysis post fall while safe discharge planning. Diagnoses Fall W19.XXXA Rhabdomyolysis M62.82 Cystitis N30.90 Vitamin D deficiency E55.9
[2023-06-03] MEDS: sodium chloride 0.9% 1,000 ML 75 ML IV (16:55)
[2023-06-03 17:09] LABS: Amphetamines Screen Urine Negative (Negative); Barbiturates Screen Urine Negative (Negative); Benzodiazepines Screen Urine Negative (Negative); Cocaine Screen Urine Negative (Negative); Opiate Screen Urine Positive (Negative); PCP Screen Urine Negative (Negative); THC Screen Urine Negative (Negative)
[2023-06-03 17:31] LABS: Procalcitonin 1.78 ng/mL (0-0.5)
[2023-06-03] MEDS: famotidine 20 mg Tablet PO (18:31)
[2023-06-03] MEDS: heparin 5,000 unit/mL INJ 1 mL 5000 UNIT SUBCUT (18:32)
[2023-06-03 19:06] LABS: Iron 121 ug/dL (37-145); Percent Saturation 31.4 % (20-50); Thyroid Stimulating Hormone 0.54 uIU/mL (0.27-4.20); Total Iron Binding Capacity 385 mcg/dl; Unsaturated Iron Binding 264 ug/dL (112-347)
[2023-06-03] MEDS: acetaminophen 325 mg Tablet 650 MG PO (19:58)
[2023-06-04] VITALS (9 sets, daily range): BP systolic 139–176; BP diastolic 66–89; PULSE 75–90; RESP 16–20; TEMP 36.8–37.1; O2SAT 94–97
[2023-06-04] MEDS: meropenem 1,000 MG in sodium chloride 0.9% (plus) 50 ML 100 MG IV ×4 (00:03→23:04)
[2023-06-04] MEDS: vancomycin 1,250 MG/250 ML PIGGYBACK 250 MG IV ×2 (00:36→23:44)
[2023-06-04] MEDS: heparin 5,000 unit/mL INJ 1 mL 5000 UNIT SUBCUT ×2 (04:50→17:10)
[2023-06-04] MEDS: HYDROcodone-acetaminophen 5-325 mg Tablet 1 TAB PO ×3 (04:51→21:40)
[2023-06-04] MEDS: sodium chloride 0.9% 1,000 ML 75 ML IV ×2 (04:51→19:42)
[2023-06-04 05:16] LABS: Basophils % 0.1 %; Hematocrit 33.1 % (36-47); Lymphocytes # 0.9 10^3/uL (0.8-4.8); Lymphocytes % 12.5 %; Mean Corpuscular HGB Conc 31.7 g/dL (30-55); Mean Corpuscular Hemoglobin 28.3 pg (27-33); Mean Corpuscular Volume 89.2 fl (85-98); Mean Platelet Volume 10.4 fL (7.4-10.4); Monocytes # 0.8 10^3/uL (0.2-0.9); Monocytes % 10.5 %; Neutrophils # 5.45 10^3/uL (1.8-7.7); Neutrophils % 76.5 %; Nucleated Red Blood Cells % 0 %; Platelet Count 110 10^3/cmm (157-399); Red Blood Count 3.71 10^6/uL (3.85-5.65); Red Cell Distribution Width 14.5 % (12.1-15.1); White Blood Count 7.13 10^3/uL (3.29-11.43)
[2023-06-04 05:37] LABS: Alanine Aminotransferase 20 U/L (0-33); Albumin Level 3.1 g/dL (3.5-5.2); Alkaline Phosphatase 112 U/L (35-105); Anion Gap 12.5 (5-19); Aspartate Amino Transferase 58 U/L (0-32); Blood Urea Nitrogen 13 mg/dL (8-23); Calcium 8.7 mg/dL (8.5-10.5); Carbon Dioxide 22 mmol/L (22-29); Chloride 111 mmol/L (98-107); Creatinine Clr Calc Pharmacy 50.3573; Globulin 2.4 g/dL (1.3-4.6); Glucose 98 mg/dL (65-115); Magnesium 1.7 mg/dL (1.7-2.3); Osmolality Calculated 294 mOsm/kg (285-295); Phosphorus 2.5 mg/dL (2.5-4.5); Potassium 3.5 mmol/L (3.5-5.1); Sodium 142 mmol/L (136-145); Total Bilirubin 0.7 mg/dL (0.15-1.2); Total Protein 5.5 g/dL (6.6-8.7)
[2023-06-04 05:43] LABS: Chol HDL Ratio 2.56 mg/dL (0.0-4.40); Cholesterol 123 mg/dL (0-200); HDL Cholesterol 48 mg/dL (60-100); LDL Cholesterol Calculated 63 mg/dL (50-129); LDL HDL Ratio 1.31 RATIO (0.00-3.22); Triglycerides 58 mg/dL (0-150)
[2023-06-04 05:44] LABS: Procalcitonin 1.83 ng/mL (0-0.5)
[2023-06-04] MEDS: famotidine 20 mg Tablet PO ×2 (08:26→17:10)
[2023-06-04] MEDS: losartan 50 mg Tablet 100 MG PO (08:26)
[2023-06-04] MEDS: amlodipine 10 mg Tablet PO (08:26)
--- NOTE | 2023-06-04 09:55 | PC.CHAP ---
Pastoral Care Encounter/Spiritual Assessment Type of Contact [] Declined plastic surgery technician visit [] Patient/Family/Request visit [] Outpatient visit [] Follow-up visit [] Physician referral [] Code/Alert [x] Routine visit [] Staff referral [] Actively dying [] Patient sleeping [] Family support [] [] Out of room [] Palliative care [] [] Receiving care in room [] Pre-surgical visit [] Trauma [] Long length of stay [] ICU visit [] Other: Relational/Emotional Strength [x] Patient feels connected with others/family/visitors/staff [] Distress [] Loneliness/isolation [] Abandonment Spirituality of Patient [x] Person of Minnie [x] Attends Mu-Ism of their Minnie [x] Believes in Prayer [x] Reads Bible or Congregation materials [] There are Spiritual issues to be addressed Orthopedics Teacher Interventions [x] Prayer [x] Active listening [] Non-anxious presence [x] Spiritual/emotional support [] Crisis/trauma care [] Spiritual counseling [] Bereavement support [] Provided bereavement packet [] Provided Bible/devotional materials [] Provided toy/stuffed animal, coloring book to patient or family member [] Provided Communion [] Anointing/[place] [] Salvation [x] Completed spiritual assessment [] Other: Impact on Illness or Injury [] Angry [] Fearful [] Anxious [] Often cries [] Exhaustion [] Unable to work [] Unable to attend tenriism [] Unable to walk/stand [] Unable to read [] Unable to drive [] Unable to eat/drink [] Unable to sleep [] Unable to be with family [] Patient intubated [] Other: Summary Time spent with patient 5 min
--- NOTE | 2023-06-04 11:34 | P.PN_ITS ---
Subjective 2 Subjective: No acute events overnight. Today morning seen with family at bedside. Patient sitting up in bed. States she is feeling better with some stiffness in the back. Looking forward to working with physical therapy. Tmax of 101.3 Fahrenheit overnight. Vitals/I&O/Wt Last Vital Signs Temp 98.4 F 06/04/23 07:52 Pulse 82 06/04/23 07:52 Resp 17 06/04/23 07:52 BP 176/76 06/04/23 07:52 Pulse Ox 94 06/04/23 07:52 O2 Del Method Room Air 06/04/23 07:52 06/03/23 06/04/23 06/04/23 22:59 06:59 14:59 Intake Total 1272 / 1272 1195 / 2467 170 / 170 Output Total 650 / 650 300 / 950 Balance 622 / 622 895 / 1517 170 / 170 Weight last 48 hrs Weight 88.677 kg Weight 81.647 kg Physical Exam 2 Narrative: General: No acute distress, AO x3, dehydrated HEENT: PERRLA, pupils bilaterally equal and reactive Chest: Normal vesicular breath sounds, no added sounds, equal good air entry bilaterally CVS: S1-S2 regular, no murmurs, no tachycardia, no gallops, no rubs Abdomen: Soft, nontender, no organomegaly, bowel sounds present Neuro: No focal deficits, no facial deformity, AO x3, power 5/5 in all limbs Extremities: Bilateral straight leg test positive. Urinary Catheter Management: Roa: Cath Placed During This Visit: yes Reason for Continuing Indwelling Catheter: Other Urinary Catheter Date of Insertion: 06/03/23 Urinary Catheter Time of Insertion: 15:25 Data 06/04/23 04:42 06/04/23 04:42 Micro: Microbiology 06/03/23 15:30 Urine Culture - Preliminary Urine,Clean Catch Gram Negative Rods 06/03/23 15:30 Bacterial Antigens - Final Urine Kidney 06/03/23 15:30 Legionella Urinary Antigen - Final Unknown Source 06/03/23 17:45 Blood Culture - Preliminary Blood SPECIMEN COLLECTED 06/03/23 17:45 Blood Culture - Preliminary Blood SPECIMEN COLLECTED A&P Assessment and plan (1) Cystitis: Tmax of 101. Has history of recurrent UTIs. Reviewed past culture history. Most recent history of E. coli pansensitive but has history of ESBL in the past. Because of fever overnight patient was put on broadening antibiotics with IV meropenem and vancomycin. Follow-up blood culture, MRSA swab. If MRSA swab negative will discontinue vancomycin. Leukocytosis has resolved. Check respiratory viral panel. Pro-Anthan mildly elevated on trending. (2) Fall: Mechanical. Complicated by rhabdomyolysis. CT head and lumbar CT negative for acute or normality. Denies any hip pain. Appreciate urine drug screen. Physical therapy. Continue with home dose of [place] 5 mg every 8 hours as needed for pain. Morphine for breakthrough pain. (3) Rhabdomyolysis: In setting of fall. CPK 1400. Normal saline at 75 cc/h. Repeat CPK in AM. (4) Vitamin D deficiency: History of vitamin D deficiency. Most recently checked in March. Start on oral vitamin D supplementation. Plan Hypertension: Goal blood pressure less than 140/90 mmHg. Blood pressure elevated. Continue with home dose of amlodipine and losartan. Add hydralazine 25 mg 3 times daily. Cardiac diet Physical therapy Famotidine for PUD prophylaxis Heparin 5000 every 12 hourly for DVT prophylaxis. CODE STATUS: Daughter will be the DPOA. Patient does not want any kind of heroic measures. DNR/DNI. Discharge planning: Discussed in detail with the patient. She would prefer to go home if possible but if needed is open for short-term SNF placement. Will evaluate after PT evaluation. Attestations 2 Medical Necessity Statement*: Requires further hospitalization for management of febrile episode in setting of cystitis while viral pathology is ruled out, rhabdomyolysis post fall, uncontrolled hypertension Diagnoses Cystitis N30.90 Fall W19.XXXA Rhabdomyolysis M62.82 Vitamin D deficiency E55.9
[2023-06-04 13:07] LABS: Adenovirus Not Detected (NOT DETECT); Chlamydia Pneumoniae Not Detected (NOT DETECT); Coronavirus 229E,HKU1,NL63,OC4 Not Detected (NOT DETECT); Human Metapneumovirus Not Detected (NOT DETECT); Human Rhinovirus/Enterovirus Not Detected (NOT DETECT); Influenza A Not Detected (NOT DETECT); Influenza A H1 Not Detected (NOT DETECT); Influenza A H1-2009 Not Detected (NOT DETECT); Influenza A H3 Not Detected (NOT DETECT); Influenza B Not Detected (NOT DETECT); Mycoplasma Pneumoniae Not Detected (NOT DETECT); Parainfluenza Virus Type 1 Not Detected (NOT DETECT); Parainfluenza Virus Type 2 Not Detected (NOT DETECT); Parainfluenza Virus Type 3 Not Detected (NOT DETECT); Parainfluenza Virus Type 4 Not Detected (NOT DETECT); Respiratory Syncytial Virus A Not Detected (NOT DETECT); Respiratory Syncytial Virus B Not Detected (NOT DETECT); SARS-COV-2 Not Detected (NOT DETECT)
[2023-06-04] MEDS: hyDRALAzine 25 mg Tablet PO ×2 (15:33→20:07)
[2023-06-05] VITALS (10 sets, daily range): BP systolic 140–168; BP diastolic 50–83; PULSE 83–94; RESP 16–20; TEMP 36.7–36.8; O2SAT 93–98; BMI 36.2
[2023-06-05] MEDS: morphine 4 mg/mL SDV 1 mL 2 MG IVP (04:25)
[2023-06-05] MEDS: heparin 5,000 unit/mL INJ 1 mL 5000 UNIT SUBCUT ×2 (05:07→17:43)
[2023-06-05] MEDS: meropenem 1,000 MG in sodium chloride 0.9% (plus) 50 ML 100 MG IV ×3 (06:45→22:49)
[2023-06-05] MEDS: famotidine 20 mg Tablet PO ×2 (09:14→17:43)
[2023-06-05] MEDS: losartan 50 mg Tablet 100 MG PO (09:14)
[2023-06-05] MEDS: amlodipine 10 mg Tablet PO (09:14)
[2023-06-05] MEDS: hyDRALAzine 25 mg Tablet PO ×3 (09:14→20:03)
[2023-06-05] MEDS: sodium chloride 0.9% 1,000 ML 75 ML IV ×2 (09:15→22:49)
[2023-06-05 09:31] LABS: Hematocrit 37.6 % (36-47); Lymphocytes # 0.9 10^3/uL (0.8-4.8); Lymphocytes % 13.4 %; Mean Corpuscular HGB Conc 31.4 g/dL (30-55); Mean Corpuscular Hemoglobin 28.2 pg (27-33); Mean Corpuscular Volume 89.7 fl (85-98); Mean Platelet Volume 10.5 fL (7.4-10.4); Monocytes # 0.7 10^3/uL (0.2-0.9); Monocytes % 11.5 %; Neutrophils % 74.2 %; Nucleated Red Blood Cells % 0 %; Platelet Count 135 10^3/cmm (157-399); Red Blood Count 4.19 10^6/uL (3.85-5.65); Red Cell Distribution Width 14.4 % (12.1-15.1); White Blood Count 6.34 10^3/uL (3.29-11.43)
[2023-06-05 09:47] LABS: Alanine Aminotransferase 25 U/L (0-33); Albumin Level 3.4 g/dL (3.5-5.2); Alkaline Phosphatase 116 U/L (35-105); Anion Gap 13.7 (5-19); Aspartate Amino Transferase 58 U/L (0-32); Blood Urea Nitrogen 11 mg/dL (8-23); Calcium 8.8 mg/dL (8.5-10.5); Carbon Dioxide 22 mmol/L (22-29); Chloride 107 mmol/L (98-107); Creatinine Clr Calc Pharmacy 50.3149; Globulin 3.1 g/dL (1.3-4.6); Glucose 128 mg/dL (65-115); Osmolality Calculated 289 mOsm/kg (285-295); Potassium 3.7 mmol/L (3.5-5.1); Sodium 139 mmol/L (136-145); Total Bilirubin 0.8 mg/dL (0.15-1.2); Total Protein 6.5 g/dL (6.6-8.7)
[2023-06-05 09:49] LABS: Creatine Phosphokinase 506 U/L (26-192)
--- NOTE | 2023-06-05 12:22 | P.PN_ITS ---
Subjective 2 Subjective: No acute events overnight. Patient has remained hemodynamically stable and afebrile. Seen with multiple family members at bedside. Patient states she is feeling a lot better. Has remained afebrile over last 24 hours. Vitals/I&O/Wt Last Vital Signs Temp 98.1 F 06/05/23 11:44 Pulse 86 06/05/23 11:44 Resp 18 06/05/23 11:44 BP 140/50 06/05/23 11:44 Pulse Ox 95 06/05/23 11:44 O2 Del Method Room Air 06/05/23 11:44 06/04/23 06/05/23 06/05/23 22:59 06:59 14:59 Intake Total 1290 / 1580 420 / 2000 1340 / 1340 Output Total 500 / 500 850 / 1350 Balance 790 / 1080 -430 / 650 1340 / 1340 Weight last 48 hrs Weight 88.536 kg Weight 89.675 kg Weight 88.677 kg Physical Exam 2 Narrative: General: No acute distress, AO x3, HEENT: PERRLA, pupils bilaterally equal and reactive Chest: Normal vesicular breath sounds, no added sounds, equal good air entry bilaterally CVS: S1-S2 regular, no murmurs, no tachycardia, no gallops, no rubs Abdomen: Soft, nontender, no organomegaly, bowel sounds present Neuro: No focal deficits, no facial deformity, AO x3, power 5/5 in all limbs Extremities: Bilateral straight leg test positive. Urinary Catheter Management: Roa: Cath Placed During This Visit: yes Reason for Continuing Indwelling Catheter: Other Urinary Catheter Date of Insertion: 06/03/23 Urinary Catheter Time of Insertion: 15:25 Data 06/05/23 09:21 06/05/23 09:21 Micro: Microbiology 06/03/23 15:30 Urine Culture - Final Urine,Clean Catch Escherichia coli esbl 06/03/23 17:45 Blood Culture - Preliminary Blood NEGATIVE TO DATE 06/03/23 17:45 Blood Culture - Preliminary Blood NEGATIVE TO DATE 06/03/23 15:30 Bacterial Antigens - Final Urine Kidney A&P Assessment and plan (1) Cystitis: Reviewed past culture history. Most recent history of E. coli pansensitive but has history of ESBL in the past. Urine culture during this time showing ESBL E. coli. MRSA swab pending. Stop vancomycin. Continue with meropenem. Pkan to finish a 5-day course. Respiratory viral panel negative. (2) Fall: Mechanical. Complicated by rhabdomyolysis. CT head and lumbar CT negative for acute or normality. Denies any hip pain. Appreciate urine drug screen. Physical therapy. Continue with home dose of [place] 5 mg every 8 hours as needed for pain. Morphine for breakthrough pain. (3) Rhabdomyolysis: In setting of fall. CPK 1400. Stop IV fluids. Repeat trending down. (4) Vitamin D deficiency: History of vitamin D deficiency. Most recently checked in March. Start on oral vitamin D supplementation. Plan Hypertension: Goal blood pressure less than 140/90 mmHg. Blood pressure Better controlled. Continue with home dose of amlodipine and losartan, hydralazine 25 mg 3 times daily. Will uptitrate as per goal BP. Cardiac diet Physical therapy Famotidine for PUD prophylaxis Heparin 5000 every 12 hourly for DVT prophylaxis. CODE STATUS: Daughter will be the DPOA. Patient does not want any kind of heroic measures. DNR/DNI. Discharge planning: Discussed discharge plan in detail with the patient and family at bedside. Discussed options would be to go to SNF versus home with home health with family around for next few days. Also discussed that physical therapy recommends that patient can go home with home health. Patient is agreeable for home with home health. Daughter will be staying with her for next few nights. Case management alerted. Plan to discharge in next 24 hours. Attestations 2 Medical Necessity Statement*: Requires further hospitalization for management of UTI in setting of ESBL E. coli, uncontrolled hypertension but safe discharge planning is sought Diagnoses Cystitis N30.90 Fall W19.XXXA Rhabdomyolysis M62.82 Vitamin D deficiency E55.9
[2023-06-05] MEDS: HYDROcodone-acetaminophen 5-325 mg Tablet 1 TAB PO (20:03)
[2023-06-06] VITALS: BP 159/73; PULSE 85; RESP 18; TEMP 36.8; O2SAT 95
[2023-06-06] MEDS: acetaminophen 325 mg Tablet 650 MG PO (02:27)
[2023-06-06 04:50] VITALS: BP 155/70; PULSE 92; RESP 18; TEMP 36.8; O2SAT 95
[2023-06-06 05:05] LABS: Basophils % 0.2 %; Hematocrit 35.5 % (36-47); Lymphocytes # 0.9 10^3/uL (0.8-4.8); Lymphocytes % 17.7 %; Mean Corpuscular HGB Conc 32.1 g/dL (30-55); Mean Corpuscular Hemoglobin 28.4 pg (27-33); Mean Corpuscular Volume 88.5 fl (85-98); Mean Platelet Volume 10.4 fL (7.4-10.4); Monocytes # 0.6 10^3/uL (0.2-0.9); Monocytes % 10.5 %; Neutrophils # 3.72 10^3/uL (1.8-7.7); Neutrophils % 70.1 %; Nucleated Red Blood Cells % 0 %; Platelet Count 148 10^3/cmm (157-399); Red Blood Count 4.01 10^6/uL (3.85-5.65); Red Cell Distribution Width 14.5 % (12.1-15.1); White Blood Count 5.31 10^3/uL (3.29-11.43)
[2023-06-06] MEDS: heparin 5,000 unit/mL INJ 1 mL 5000 UNIT SUBCUT (05:10)
[2023-06-06] MEDS: HYDROcodone-acetaminophen 5-325 mg Tablet 1 TAB PO (05:10)
[2023-06-06 05:24] LABS: Alanine Aminotransferase 23 U/L (0-33); Albumin Level 3.2 g/dL (3.5-5.2); Alkaline Phosphatase 144 U/L (35-105); Anion Gap 16.6 (5-19); Aspartate Amino Transferase 42 U/L (0-32); Blood Urea Nitrogen 12 mg/dL (8-23); Calcium 8.8 mg/dL (8.5-10.5); Carbon Dioxide 20 mmol/L (22-29); Chloride 108 mmol/L (98-107); Creatinine Clr Calc Pharmacy 51.3132; Globulin 2.7 g/dL (1.3-4.6); Glucose 111 mg/dL (65-115); Osmolality Calculated 292 mOsm/kg (285-295); Potassium 3.6 mmol/L (3.5-5.1); Sodium 141 mmol/L (136-145); Total Bilirubin 0.9 mg/dL (0.15-1.2); Total Protein 5.9 g/dL (6.6-8.7)
[2023-06-06 05:28] VITALS: PULSE 86
[2023-06-06 07:13] VITALS: BP 109/69; PULSE 79; RESP 17; TEMP 36.6; O2SAT 94
[2023-06-06 09:21] VITALS: BP 109/69
[2023-06-06] MEDS: famotidine 20 mg Tablet PO (09:21)
[2023-06-06] MEDS: losartan 50 mg Tablet 100 MG PO (09:21)
[2023-06-06] MEDS: hyDRALAzine 25 mg Tablet PO (09:21)
[2023-06-06] MEDS: amlodipine 10 mg Tablet PO (09:22)
[2023-06-06] MEDS: meropenem 1,000 MG in sodium chloride 0.9% (plus) 50 ML 100 MG IV (09:22)
--- NOTE | 2023-06-06 10:18 | P.DS_ITS ---
Discharge Providers Date of Admission: 06/03/23 16:34 Date of Discharge: June 06, 2023 Attending Provider at Admission: Ugo Abel MD Attending Provider at Discharge: Ugo Abel MD Primary Care Provider: Eduin Zeng MD Diagnoses at Discharge Discharge Diagnosis (1) Cystitis: Status: Acute (2) Fall: Status: Acute (3) Rhabdomyolysis: Status: Acute (4) Vitamin D deficiency: Status: Acute (5) Varices, esophageal: Status: Acute Reason for Visit Reason for Visit: fall,dizzy Hospital Course Hospital Course Mary Ellen Benjamin is a 88 year old female with past medical history of high blood pressure, lumbar stenosis who presented to the ER today after sustaining fall last night. Patient states she usually wakes up every night to pass urine and so has a bedside commode. Yesterday while getting up from bedside commode to go back to the bed she fell and was not able to get up for the whole night. Today morning when her daughter came to check up on her she was found on the floor awake and alert and was brought to the ER. Currently patient is complaining of back pain. She denies any nausea, vomiting, headache, subjective fever fever, diarrhea but does complain of itching while passing urine. Denies any burning or painful urination. Patient was admitted to the hospital for evaluation and management rhabdomyolysis in setting of mechanical fall. She started on IV fluids. Investigations were consistent with UTI. Urine culture grew ESBL E. coli. Antibiotics were tailored as per the culture sensitivities. During hospitalization she was found to have elevated blood pressures for which her antihypertensives were adjusted. On review of past medical history it seems patient has a history of liver cirrhosis with esophageal varices. Because the same she was started on oral propranolol both for elevated blood pressures and varices. Safe discharge planning was discussed in detail with patient and her family members at bedside. They were agreeable for SNF placement for short-term for rehabitation. She has been discharged in hemodynamically stable condition to SNF on adjusted antihypertensives with advised to continue ertapenem for 1 more day to finish a 5-day course for ESBL E. coli UTI. Physical Exam Narrative: General: No acute distress, AO x3, HEENT: PERRLA, pupils bilaterally equal and reactive Chest: Normal vesicular breath sounds, no added sounds, equal good air entry bilaterally CVS: S1-S2 regular, no murmurs, no tachycardia, no gallops, no rubs Abdomen: Soft, nontender, no organomegaly, bowel sounds present Neuro: No focal deficits, no facial deformity, AO x3, power 5/5 in all limbs Extremities: Bilateral straight leg test positive. Urinary Catheter Management: Roa: Cath Placed During This Visit: yes Reason for Continuing Indwelling Catheter: Other Urinary Catheter Date of Insertion: 06/03/23 Urinary Catheter Time of Insertion: 15:25 Discharge Data Studies Completed and Pending Completed Studies During Hospitalization Category Date Time Status CT head wo con* [id number] Stat Cat Scan 06/03/23 12:[address] lumbar spine wo con* [id number] Stat Cat Scan 06/03/23 13:38 Completed XR chest 1V portable [id number] Stat Exams 06/03/23 12:25 Completed Pending at discharge Category Date Time Status Blood Culture Stat Lab 06/03/23 17:45 Results MRSA [Methicillin Resistant S.aureu] Routine Lab 06/03/23 23:46 Received SARS Covid-2 Antigen Routine Lab 06/06/23 09:40 Received Vancomycin Trough Timed Lab 06/06/23 23:15 Ordered Radiology Impressions Chest X-Ray 06/03/23 12:25 IMPRESSION: Mild cardiomegaly otherwise negative chest. Laboratory Results WBC 5.31 10^3/uL (3.29-11.43) 06/06/23 04:40 RBC 4.01 10^6/uL (3.85-5.65) 06/06/23 04:40 Hgb 11.40 g/dL (11.27-16.99) 06/06/23 04:40 Hct 35.5 % (36-47) L 06/06/23 04:40 MCV 88.5 fl (85-98) 06/06/23 04:40 MCH 28.4 pg (27-33) 06/06/23 04:40 MCHC 32.1 g/dL (30-55) 06/06/23 04:40 RDW 14.5 % (12.1-15.1) 06/06/23 04:40 Plt Count 148 10^3/cmm (157-399) L 06/06/23 04:40 MPV 10.4 fL (7.4-10.4) 06/06/23 04:40 Neut % (Auto) 70.1 % 06/06/23 04:40 Lymph % (Auto) 17.7 % 06/06/23 04:40 [place] % (Auto) 10.5 % 06/06/23 04:40 Eos % (Auto) 0.0 % 06/06/23 04:40 Baso % (Auto) 0.2 % 06/06/23 04:40 Neut # (Auto) 3.72 10^3/uL (1.8-7.7) 06/06/23 04:40 Lymph # (Auto) 0.9 10^3/uL (0.8-4.8) 06/06/23 04:40 [place] # (Auto) 0.6 10^3/uL (0.2-0.9) 06/06/23 04:40 Eos # (Auto) 0.0 10^3/uL (0.0-0.8) 06/06/23 04:40 Baso # (Auto) 0.0 10^3/uL (0.0-0.1) 06/06/23 04:40 Nucleated RBC % (auto) 0 % 06/06/23 04:40 Nucleated RBCs # 0.0 /100WBC 06/06/23 04:40 Sodium 141 mmol/L (136-145) 06/06/23 04:40 Potassium 3.6 mmol/L (3.5-5.1) 06/06/23 04:40 Chloride 108 mmol/L (98-107) H 06/06/23 04:40 Carbon Dioxide 20 mmol/L (22-29) L 06/06/23 04:40 Anion Gap 16.6 (5-19) 06/06/23 04:40 BUN 12 mg/dL (8-23) 06/06/23 04:40 Creatinine 0.5 mg/dL (0.5-0.9) 06/06/23 04:40 GFR Calculation Not Reportable 06/06/23 04:40 Glucose 111 mg/dL (65-115) 06/06/23 04:40 Calculated Osmolality 292 mOsm/kg (285-295) 06/06/23 04:40 Calcium 8.8 mg/dL (8.5-10.5) 06/06/23 04:40 Phosphorus 2.5 mg/dL (2.5-4.5) 06/04/23 04:42 Magnesium 1.7 mg/dL (1.7-2.3) 06/04/23 04:42 Iron 121 ug/dL (37-145) 06/03/23 13:08 TIBC 385 mcg/dl 06/03/23 13:08 % Saturation 31.4 % (20-50) 06/03/23 13:08 Unsat Iron Binding 264 ug/dL (112-347) 06/03/23 13:08 Total Bilirubin 0.9 mg/dL (0.15-1.2) 06/06/23 04:40 AST 42 U/L (0-32) H 06/06/23 04:40 ALT 23 U/L (0-33) 06/06/23 04:40 Alkaline Phosphatase 144 U/L (35-105) H 06/06/23 04:40 Creatine Kinase 506 U/L (26-192) H* 06/05/23 09:21 Total Protein 5.9 g/dL (6.6-8.7) L 06/06/23 04:40 Albumin 3.2 g/dL (3.5-5.2) L 06/06/23 04:40 Globulin 2.7 g/dL (1.3-4.6) 06/06/23 04:40 Triglycerides 58 mg/dL (0-150) 06/04/23 04:42 Cholesterol 123 mg/dL (0-200) 06/04/23 04:42 LDL Cholesterol, Calc 63 mg/dL (50-129) 06/04/23 04:42 HDL Cholesterol 48 mg/dL (60-100) L 06/04/23 04:42 LDL/HDL Ratio 1.31 RATIO (0.00-3.22) 06/04/23 04:42 Cholesterol/HDL Ratio 2.56 mg/dL (0.0-4.40) 06/04/23 04:42 Procalcitonin 1.83 ng/mL (0-0.5) H 06/04/23 04:42 TSH 0.54 uIU/mL (0.27-4.20) 06/03/23 13:08 Urine Color Yellow (Yellow) 06/03/23 15:30 Urine Appearance Clear (CLEAR) 06/03/23 15:30 Urine pH 6.5 (5-7) 06/03/23 15:30 Ur Specific [place] 1.010 (1.005-1.030) 06/03/23 15:30 Urine Protein 1+ (Negative) H 06/03/23 15:30 Urine Glucose (UA) Norm (Normal) 06/03/23 15:30 Urine Ketones Negative (Negative) 06/03/23 15:30 Urine Blood 3+ (Negative) H 06/03/23 15:30 Urine Nitrate Negative (Negative) 06/03/23 15:30 Urine Bilirubin Neg (Negative) 06/03/23 15:30 Urine Urobilinogen 1 mg/dL (Negative) H 06/03/23 15:30 Ur Leukocyte Esterase Negative (Negative) 06/03/23 15:30 Urine RBC 0-4 /hpf (0-2) H 06/03/23 15:30 Urine WBC 5-10 /hpf (0-5) H 06/03/23 15:30 Ur Squamous Epith Cells 0-4 /hpf (0-5) H 06/03/23 15:30 Amorphous Sediment Not Reportable 06/03/23 15:30 Urine Bacteria 4+ /hpf (NONE) H 06/03/23 15:30 Urine Opiates Screen Positive ng/mL (Negative) H 06/03/23 15:30 Ur Barbiturates Screen Negative ng/mL (Negative) 06/03/23 15:30 Ur Phencyclidine Scrn Negative ng/mL (Negative) 06/03/23 15:30 Ur Amphetamines Screen Negative ng/mL (Negative) 06/03/23 15:30 U Benzodiazepines Scrn Negative ng/mL (Negative) 06/03/23 15:30 Urine Cocaine Screen Negative ng/mL (Negative) 06/03/23 15:30 U Marijuana (THC) Screen Negative ng/mL (Negative) 06/03/23 15:30 Adenovirus (PCR) Not detected (NOT DETECT) 06/04/23 11:15 C. pneumoniae DNA (PCR) Not detected (NOT DETECT) 06/04/23 11:15 Coronavirus 229E (PCR) Not detected (NOT DETECT) 06/04/23 11:15 Human Metapneumovir PCR Not detected (NOT DETECT) 06/04/23 11:15 Influenza A (H1) PCR Not detected (NOT DETECT) 06/04/23 11:15 Influ A (H1/09) PCR Not detected (NOT DETECT) 06/04/23 11:15 Influenza A (H3) PCR Not detected (NOT DETECT) 06/04/23 11:15 Influenza Type A (PCR) Not detected (NOT DETECT) 06/04/23 11:15 Influenza Type B (PCR) Not detected (NOT DETECT) 06/04/23 11:15 M. pneumoniae (PCR) Not detected (NOT DETECT) 06/04/23 11:15 Parainfluenza 1 (PCR) Not detected (NOT DETECT) 06/04/23 11:15 Parainfluenza 2 (PCR) Not detected (NOT DETECT) 06/04/23 11:15 Parainfluenza 3 (PCR) Not detected (NOT DETECT) 06/04/23 11:15 Parainfluenza 4 (PCR) Not detected (NOT DETECT) 06/04/23 11:15 RSV Type A (PCR) Not detected (NOT DETECT) 06/04/23 11:15 RSV Type B (PCR) Not detected (NOT DETECT) 06/04/23 11:15 Entero/Rhino (PCR) Not detected (NOT DETECT) 06/04/23 11:15 SARS-CoV-2 (PCR) Not detected (NOT DETECT) 06/04/23 11:15 Vitals Last Vital Signs Temp 97.9 F 06/06/23 07:13 Pulse 79 06/06/23 07:13 Resp 17 06/06/23 07:13 BP 109/69 06/06/23 09:21 Pulse Ox 94 06/06/23 07:13 O2 Del Method Room Air 06/06/23 07:13 Discharge Plan Discharge Patient Disposition: Xfer SNF Condition: Stable Prescriptions: New Protonix 40 mg tablet,delayed release (DR/EC) 40 mg PO DAILY Qty: 30 0RF propranolol 10 mg tablet 10 mg PO TID Qty: 90 0RF Continued calcium carbonate-vit D3-min 600 mg calcium- 400 unit tablet 1 tab PO DAILY ketoconazole 2 % shampoo 1 applic topical Q14D Qty: 120 3RF cholecalciferol (vitamin D3) 50 mcg (2,000 unit) capsule 50 mcg PO DAILY Qty: 30 6RF losartan 100 mg tablet 100 mg PO DAILY Qty: 90 3RF spironolactone 25 mg tablet 25 mg PO DAILY Qty: 30 6RF hydroxyzine HCl 10 mg tablet 10 mg PO .QHS PRN (Reason: itching) Qty: 30 3RF hydrocodone-acetaminophen 5-325 mg tablet 1 tab PO Q8H PRN (Reason: pain) 30 Days Qty: 90 0RF amlodipine 10 mg tablet 10 mg PO DAILY Changed furosemide 40 mg tablet 40 mg PO DAILY PRN (Reason: weight gain) Qty: 30 6RF Discharge Orders: Discharge Order (Routine); Ordered 06/06/23 Ordered By: Ugo Abel Referrals: Eduin Zeng MD [Primary Care Provider] - 06/14/23 11:00 am Discharge Diet: Regular and Cardiac Discharge Activity: Resume usual activity and Increase activity as tolerated Patient Instructions: Propranolol (By mouth), Pantoprazole (By mouth), Opioid Safety Activity Restrictions/Additional Instructions: Please take ertapenem 1 g IV for 1 more day to finish a course of IV antibiotics. Continue antihypertensives as before. Propranolol 10 mg 3 times a day has been added. Lasix has been changed daily as needed. Continue to work with physical therapy. Discharge Attestations Time Spent in Discharge Care*: greater than 30 min Specific Discharge Activities: educating patient, educating and/or supporting family/caregiver, discussing with pcp/other providers, discussing with immigration case manager/social workers/dc planners, documenting/other paperwork and evaluating patient/reviewing data Status at Discharge: Cognitive status at discharge: cognitively intact , Behavioral status at discharge: cooperative , Functional status at discharge: uses cane/walker , Overall status at discharge: patient is progressing back to baseline Quality Metrics Clinical Quality Measures [ No reported AMI, CVA or VTE this stay] Coding Level of Care Code 11304 Total time (in minutes) for Discharge: 60 Diagnoses Cystitis N30.90 Fall W19.XXXA Rhabdomyolysis M62.82 Vitamin D deficiency E55.9 Varices, esophageal I85.00
[2023-06-06 10:26] LABS: SARS Covid-2 Antigen negative (Negative)
[2023-06-06] MEDS: ertapenem 1,000 MG in sodium chloride 0.9% (plus) 100 ML 200 MG IV (11:30)
--- NOTE | 2023-06-06 12:20 | PC.NURSE ---
This nurse gave report to Odalys at [facility] at 1219. Pt will be discharging with IV for IV ertapenem tomorrow morning. D/C pending transportation. [facility] will be picking up pt anywhere between now and 154.
[2023-06-07 14:26] LABS: Methicillin-Resist S.aureu PCR NOT DETECTED (NOT DETECTED)
== END 2023-06-06 13:55 | DRG 690 ==
LOC: ER 16:37 → MEDSURG 16:59
PROVIDERS: Admitting Provider Student in an Organized Health Care Education/Training Program; Emergency Provider Family Medicine; PCP Family Medicine; Visit Provider Student in an Organized Health Care Education/Training Program
DX: N30.90 Cystitis, unspecified without hematuria (principal); M62.82 Rhabdomyolysis; I85.10 Secondary esophageal varices without bleeding; Z16.12 Extended spectrum beta lactamase (ESBL) resistance; W18.30XA Fall on same level, unspecified, initial encounter; E55.9 Vitamin D deficiency, unspecified; K74.60 Unspecified cirrhosis of liver; B96.20 Unspecified Escherichia coli [E. coli] as the cause of diseases classified elsewhere; I10 Essential (primary) hypertension
CPT/HCPCS: 36415; 51702; 70450; 71045; 72131; 80053; 80061; 80306; 81001; 82550; 83540; 83550; 83735; 84100; 84145; 84443; 85025; 86403; 87040; 87086; 87186; 87426; 87449; 87486; 87581; 87633; 87641; 93005; 94664; 96365; 96367; 96372; 96375; 97116; 97161; 97530; 99285; J0696; J1335; J1644; J2185; J2270; J3370; J7030

== ENCOUNTER → 2023-06-28 13:13 | Outpatient (BNVA) | payer MEDICARE, OTHER, SELFPAY | PROVIDERS: PCP Family Medicine; Visit Provider Family Medicine | DX: N39.0 Urinary tract infection, site not specified | CPT/HCPCS: 81000; 87077; 87086; 87184 ==

== ENCOUNTER 2023-07-05 13:56 | Outpatient (CLI) | payer MEDICARE, OTHER, SELFPAY ==
--- NOTE | 2023-07-05 14:30 | USR_ITS ---
PROCEDURE INFORMATION: Exam: US Retroperitoneal; Complete; Kidneys and Bladder Exam date and time: 07/05/2023 2:02 PM Age: 88 years old Clinical indication: Other: Frequent UTI, urinary frequency TECHNIQUE: Imaging protocol: Real-time ultrasound of the retroperitoneum with image documentation. Complete exam focused on the kidneys and bladder. COMPARISON: CT abdomen pelvis w con* [id number] 10/31/2022 1:31 PM FINDINGS: Right kidney: Measures approximate 10.8 cm length. No stones or hydronephrosis. Left kidney: Measures proximally 8.6 cm length. No stones or hydronephrosis. Urinary bladder: Poorly visualized. Postvoid volume approximately 17.5 mL. Bladder incompletely distended to assess wall thickening. US/US renal BI with PV bladder IMPRESSION: No acute findings as above.
== END 2023-07-05 13:57 | disposition home or self-care (01) ==
LOC: RAD 13:57
PROVIDERS: PCP Family Medicine; Visit Provider Family Medicine
DX: N39.0 Urinary tract infection, site not specified (principal)
CPT/HCPCS: 76770; 76857

== ENCOUNTER → 2023-10-16 15:10 | Outpatient (BNVA) | payer MEDICARE, OTHER, SELFPAY | PROVIDERS: PCP Family Medicine; Visit Provider Family Medicine | DX: N39.0 Urinary tract infection, site not specified (principal) | CPT/HCPCS: 81000 ==

== ENCOUNTER → 2023-11-25 12:13 | Outpatient (BNVA) | payer MEDICARE, OTHER, SELFPAY | PROVIDERS: PCP Family Medicine; Visit Provider Family Medicine | DX: R30.0 Dysuria (principal); N39.0 Urinary tract infection, site not specified | CPT/HCPCS: 81000; 87086 ==

== ENCOUNTER → 2023-12-11 10:34 | Outpatient (BNVA) | payer MEDICARE, OTHER, SELFPAY | PROVIDERS: PCP Family Medicine; Visit Provider Nurse Practitioner Family | DX: D48.5 Neoplasm of uncertain behavior of skin (principal); L57.0 Actinic keratosis; L21.8 Other seborrheic dermatitis; L72.0 Epidermal cyst; Z85.820 Personal history of malignant melanoma of skin | CPT/HCPCS: 11102; 17000; 99213 ==

== ENCOUNTER 2023-12-14 16:39 | Emergency (ER) | payer MEDICARE, OTHER, SELFPAY ==
[2023-12-14 16:47] VITALS: BP 172/88; PULSE 80; RESP 16; TEMP 36.8; O2SAT 100; BMI 33.6
--- NOTE | 2023-12-14 17:16 | CTR_ITS ---
PROCEDURE INFORMATION: Exam: CT Cervical Spine Without Contrast Exam date and time: 12/14/2023 5:43 PM Age: 88 years old Clinical indication: Injury or trauma; Blunt trauma; Patient HX: EMS arrival for fall. Patient fell out of bed earlier today. C/O head/neck pain. TECHNIQUE: Imaging protocol: Computed tomography of the cervical spine without contrast. Radiation optimization: All CT scans at this facility use at least one of these dose optimization techniques: automated exposure control; mA and/or kV adjustment per patient size (includes targeted exams where dose is matched to clinical indication); or iterative reconstruction. COMPARISON: CT neck w con* [id number] 08/12/2019 9:34 AM RADIATION DOSE METRICS: Total DLP (mGy-cm): 1028.5 FINDINGS: Bones: No acute fracture. Normal alignment. No significant disc bulge or herniation. No severe spinal canal stenosis. Chronic marked degenerative disc and facet changes throughout the cervical spine with multilevel foramina compromise. Lungs: Lung apices are normal. Thyroid: Hypodense left thyroid nodule measuring 1.2 centimeters. No follow-up required. Soft tissues: Unremarkable. CT/CT cervical spin wo con* [id number] IMPRESSION: No acute fracture or subluxation. COMMENTS: Consistent with the [employer]'s Incidental Findings Committee white paper (J Am Ted Radiol 2015): In patients aged 35 years and older with an incidental thyroid nodule equal to or greater than 1.[address], MRI or extrathyroidal US, further evaluation with dedicated thyroid US is recommended for patients with normal life expectancy and without comorbidities. For smaller nodules without suspicious features, no further evaluation or follow up is recommended.
--- NOTE | 2023-12-14 17:16 | CTR_ITS ---
PROCEDURE INFORMATION: Exam: CT Head Without Contrast Exam date and time: 12/14/2023 5:43 PM Age: 88 years old Clinical indication: Injury or trauma; Blunt trauma (contusions or hematomas); Patient HX: EMS arrival for fall. Patient fell out of bed earlier today. C/O head/neck pain. TECHNIQUE: Imaging protocol: Computed tomography of the head without contrast. Radiation optimization: All CT scans at this facility use at least one of these dose optimization techniques: automated exposure control; mA and/or kV adjustment per patient size (includes targeted exams where dose is matched to clinical indication); or iterative reconstruction. COMPARISON: CT head wo con* [id number] 06/03/2023 12:49 PM RADIATION DOSE METRICS: Total DLP (mGy-cm): 1235.3 FINDINGS: Brain: Normal. No hemorrhage. Bilateral ill-defined periventricular hypodensities consistent with moderate chronic microvascular white matter ischemic changes. Cerebral ventricles: No ventriculomegaly. Paranasal sinuses: Visualized sinuses are unremarkable. No fluid levels. Mastoid air cells: Visualized mastoid air cells are well aerated. Bones: Unremarkable. No acute fracture. Soft tissues: Unremarkable. CT/CT head wo con* [id number] IMPRESSION: No acute intracranial abnormality.
--- NOTE | 2023-12-14 17:16 | ED_ITS ---
HPI - Weakness 2 General: Chief complaint: Weakness Stated complaint: weakness Time Seen by Provider: 12/14/23 17:00 History of Present Illness: This patient is an 88-year-old white female who presents to the emergency department for evaluation of injuries after a fall. Patient states she slid out of bed at 7:30 AM this morning and could not get up. She laid on the full floor for about 8 hours. She states she hurts all over. She states she has not had a recent illness. No fever. No chest pain or shortness of breath. Review of Systems 2 General: Reports: 10 or more systems reviewed and unremarkable except in HPI and below Musc: Reports: other (Right hip pain.) PFSH ED 2 PFSH: Medical History Varices, esophageal Gait instability Cecum mass Hepatomegaly Cirrhosis Elevated transaminase level Osteoarthritis of left knee Compression fracture Lumbar stress fracture History of nonmelanoma skin cancer History of malignant melanoma HTN (hypertension) History of melanoma History of breast cancer Surgical History Hx of spinal surgery L4/5 laminectomy History of ventral hernia repair History of cholecystectomy History of mastectomy History of hysterectomy History of bladder repair surgery Family History Other Hypertension Social History Smoking and tobacco/nicotine status: never used tobacco/nicotine Physical Exam 2 Const: COMMON NORMALS: no acute distress, patient oriented x3 and no limitations GENERAL APPEARANCE: cooperative and comfortable HENMT: COMMON NORMALS: normocephalic, atraumatic, Normal nasal mucous membranes and turbinates present, moist oral mucous membranes and oropharynx normal HEAD & SCALP: normal to inspection, normocephalic and atraumatic F YARIEL & SINUS: normal facial exam NOSE: Normal nasal mucous membranes and turbinates present Eye: COMMON NORMALS: Equal, round and reactive pupils present, EOMs intact bilaterally and conjunctivae normal GENERAL EYE: appearance normal, both eyes and all related structures CONJUNCTIVA: Yes conjunctivae normal PUPIL: Yes Equal, round and reactive pupils present Neck/C-Spine: COMMON NORMALS: supple and no JVD Chest: COMMONS NORMALS: normal inspection of the chest Resp: COMMON NORMALS: normal respiratory effort and clear to auscultation bilaterally AUSCULTATION: clear to auscultation bilaterally Cardio: COMMON NORMALS: no JVD, regular rate, regular rhythm, No gallops present (Cardio), No murmurs present (Cardio) and No rub (Cardio) RATE: r egular rate RHYTHM: regular rhythm GI: COMMON NORMALS: Normal to inspection, nondistended, normoactive bowel sounds present, Soft to palpation and non-tender AUSCULTATION: Yes normoactive bowel sounds PALPATION: Yes Soft to palpation : COMMON NORMALS: Yes no CVA tenderness BLADDER/KIDNEY EXAM: Yes no CVA tenderness Back/Pelvis: COMMON NORMALS: no CVA tenderness and thoracic and lumbar spine normal to inspection Extremity: RIGHT LOWER EXTREMITY: Yes hip joint (Some mild discomfort with range of motion of the right hip.) Neuro: COMMON NORMALS: patient oriented x3 and CN's II-XII intact bilaterally Psych: COMMON NORMALS: mental status grossly normal, Normal thought process present and cooperative THOUGHT PROCESS: Normal thought process present Skin: COMMON NORMALS: no rashes or lesions noted, turgor normal and no jaundice GENERAL SKIN EXAM: no rashes or lesions noted and turgor normal Course 2 Vital Signs: Vital signs: Vital Signs Temperature 98.3 F 12/14/23 16:47 Pulse Rate 109 H 12/14/23 21:06 Respiratory Rate 19 H 12/14/23 17:33 Blood Pressure 181/72 12/14/23 21:06 Pulse Oximetry 90 12/14/23 21:06 Oxygen Delivery Me thod Room Air 12/14/23 21:06 MDM - Weakness Medical Decision Making CBC reveals a white blood cell count of 11.8. BMP was normal. CK was 761. Urine analysis is consistent with a urinary tract infection. Head CT and cervical spine CTs were read by the radiologist as normal. X-rays of the left hip and pelvis were normal. Patient did receive a 1 L bolus of normal saline, 4 mg of Zofran and 4 mg of morphine for her pain. She also received 1 g of Rocephin IV for the urinary tract infection. She has some mild rhabdomyolysis. Patient does not require admission. She will need some help at home. Patient does have family members that can stay with her. She does have a prescription for hydrocodone 7.5 mg tablets that she can use for pain. I did prescribe ciprofloxacin for her urinary tract infection. I recommended she follow-up with her primary care physician next week for recheck. She was discharged in stable condition. Lab Data 12/14/23 18:33 12/14/23 18:33 Radiology Impressions Cervical Spine CT 12/14/23 17:16 IMPRESSION: No acute fracture or subluxation. COMMENTS: Consistent with the [employer]'s Incidental Findings Committee white paper (J Am Ted Radiol 2015): In patients aged 35 years and older with an incidental thyroid nodule equal to or greater than 1.[address], MRI or extrathyroidal US, further evaluation with dedicated thyroid US is recommended for patients with normal life expectancy and without comorbidities. For smaller nodules without suspicious features, no further evaluation or follow up is recommended. Head CT 12/14/23 17:16 IMPRESSION: No acute intracranial abnormality. Laboratory Results WBC 11.83 10^3/uL (3.29-11.43) H 12/14/23 18:33 RBC 4.31 10^6/uL (3.85-5.65) 12/14/23 18:33 Hgb 11.70 g/dL (11.27-16.99) 12/14/23 18:33 Hct 37.3 % (36-47) 12/14/23 18:33 MCV 86.5 fl (85-98) 12/14/23 18:33 MCH 27.1 pg (27-33) 12/14/23 18:33 MCHC 31.4 g/dL (30-55) 12/14/23 18:33 RDW 15.6 % (12.1-15.1) H 12/14/23 18:33 Plt Count 125 10^3/cmm (157-399) L 12/14/23 18:33 MPV 9.7 fL (7.4-10.4) 12/14/23 18:33 Neut % (Auto) 89.8 % 12/14/23 18:33 Lymph % (Auto) 3.4 % 12/14/23 18:33 [place] % (Auto) 5.9 % 12/14/23 18:33 Eos % (Auto) 0.0 % 12/14/23 18:33 Baso % (Auto) 0.1 % 12/14/23 18:33 Neut # (Auto) 10.62 10^3/uL (1.8-7.7) H 12/14/23 18: Lymph # (Auto) 0.4 10^3/uL (0.8-4.8) L 12/14/23 18: [place] # (Auto) 0.7 10^3/uL (0.2-0.9) 12/14/23 18: Eos # (Auto) 0.0 10^3/uL (0.0-0.8) 12/14/23 18: Baso # (Auto) 0.0 10^3/uL (0.0-0.1) 12/14/23 18: Nucleated RBC % (auto) 0 % 12/14/23 18: Nucleated RBCs # 0.0 /100WBC 12/14/23 18:33 Sodium 136 mmol/L (136-145) 12/14/23 18: Potassium 3.5 mmol/L (3.5-5.1) 12/14/23 18: Chloride 101 mmol/L (98-107) 12/14/23 18: Carbon Dioxide 24 mmol/L (22-29) 12/14/23 18: Anion Gap 14.5 (5-19) 12/14/23 18: BUN 12 mg/dL (8-23) 12/14/23 18: Creatinine 0.5 mg/dL (0.5-0.9) 12/14/23 18: GFR Calculation Not Reportable 12/14/23 18: Glucose 136 mg/dL (65-115) H 12/14/23 18: Calculated Osmolality 284 mOsm/kg (285-295) L 12/14/23 18: Calcium 9.1 mg/dL (8.5-10.5) 12/14/23 18: Creatine Kinase 761 U/L (26-192) H* 12/14/23 18: Urine Color Dark yellow (Yellow) A 12/14/23 19:25 Urine Appearance Turbid (CLEAR) A 12/14/23 19: Urine pH 8.0 (5-7) A 12/14/23 19: Ur Specific [place] 1.021 (1.005-1.030) 12/14/23 19:25 Urine Protein 4+ (Negative) A 12/14/23 19:25 Urine Glucose (UA) Negative (Normal) 12/14/23 19:25 Urine Ketones Negative (Negative) 12/14/23 19:25 Urine Blood 3+ (Negative) A 12/14/23 19:25 Urine Nitrate Negative (Negative) 12/14/23 19:25 Urine Bilirubin Negative (Negative) 12/14/23 19:25 Urine Urobilinogen 1.0 mg/dL (Negative) 12/14/23 19:25 Ur Leukocyte Esterase 1+ (Negative) A 12/14/23 19:25 Urine RBC 3-5 /hpf (0-2) 12/14/23 19:25 Urine WBC 21-50 /hpf (0-5) H 12/14/23 19:25 Ur Squamous Epith Cells 6-10 /hpf (0-5) 12/14/23 19:25 Calcium Oxalate Crystal 5-10 /hpf H 12/14/23 19:25 Amorphous Sediment Not Reportable 12/14/23 19:25 Urine Bacteria Exceeds /hpf (NONE) 12/14/23 19:25 Hyaline Casts 9.07 /lpf 12/14/23 19:25 All radiology interpretation(s) finalized by discharge Discharge Plan Discharge Patient Disposition: Home Clinical Impression: Acute UTI Fall Qualifiers: Encounter type: initial encounter Qualified Code(s): W19.XXXA - Unspecified fall, initial encounter Condition: Stable Prescriptions: New ciprofloxacin HCl [Cipro] 500 mg tablet 500 mg PO Q12H Qty: 20 0RF No Action calcium carbonate-vit D3-min 600 mg calcium- 400 unit tablet 1 tab PO DAILY ketoconazole 2 % shampoo 1 applic topical Q14D Qty: 120 3RF cholecalciferol (vitamin D3) 50 mcg (2,000 unit) capsule 50 mcg PO DAILY Qty: 30 6RF lidocaine 4 % adhesive patch,medicated 1 patch topical BID PRN spironolactone 25 mg tablet 25 mg PO DAILY Qty: 30 6RF ciprofloxacin HCl 500 mg tablet 500 mg PO BID 7 Days Qty: 14 0RF hydrocodone-acetaminophen 7.5-325 mg tablet 1 tab PO Q8H PRN (Reason: pain) 30 Days Qty: 90 0RF ursodiol 500 mg tablet 500 mg PO BID Qty: 60 3RF hydroxyzine HCl 10 mg tablet 10 mg PO .QHS PRN (Reason: itching) Qty: 30 3RF losartan 100 mg tablet 100 mg PO DAILY Qty: 90 3RF propranolol 10 mg tablet 10 mg PO TID Qty: 90 6RF Protonix 40 mg tablet,delayed release (DR/EC) 40 mg PO DAILY Qty: 30 0RF furosemide 40 mg tablet 40 mg PO DAILY PRN (Reason: weight gain) Qty: 30 6RF Discharge Orders: Discharge ED (Routine); Ordered 12/14/23 Ordered By: Emigdio Rodriguez Referrals: Eduin Zeng MD [Primary Care Provider] - Patient Instructions: Pain Management Activity Restrictions/Additional Instructions: Drink plenty of fluids. Follow-up with your primary care provider next week for recheck. Coding Level of Care Code ED Accreditation Specialist for Chg Fwd Related Data Home Medications Medication Instructions Recorded Confirmed calcium 600 mg (as carbonate)-vit 1 tab PO DAILY 10/13/21 11/25/23 D3 10 mcg (400 unit)-minerals tablet lidocaine 4 % topical patch 1 patch topical BID PRN 06/28/23 11/25/23 Previous Rx's Medication Instructions Recorded hydroxyzine HCl 10 mg tablet 10 mg PO .QHS PRN itching #30 tabs 03/05/23 ketoconazole 2 % shampoo 1 applic topical Q14D #120 mL 04/03/23 cholecalciferol (vitamin D3) 50 50 mcg PO DAILY #30 caps 04/04/23 mcg (2,000 unit) capsule furosemide 40 mg tablet 40 mg PO DAILY PRN weight gain #30 06/06/23 tabs pantoprazole 40 mg tablet,delayed 40 mg PO DAILY #30 tabs 06/06/23 release (Protonix) ursodiol 500 mg tablet 500 mg PO BID #60 tabs 08/15/23 losartan 100 mg tablet 100 mg PO DAILY #90 tabs 11/20/23 propranolol 10 mg tablet 10 mg PO TID #90 tabs 11/20/23 ciprofloxacin HCl 500 mg tablet 500 mg PO BID 7 days #14 tabs 11/25/23 hydrocodone 7.5 mg-acetaminophen 1 tab PO Q8H PRN pain 30 days #90 11/25/23 325 mg tablet tabs spironolactone 25 mg tablet 25 mg PO DAILY #30 tabs 11/25/23 ciprofloxacin HCl 500 mg tablet 500 mg PO Q12H #20 tabs 12/14/23 (Cipro) Allergies Allergy/AdvReac Type Severity Reaction Status Date / Time aspirin Allergy rash Verified 06/03/23 13:27 Sulfa (Sulfonamide Allergy hives Verified 06/03/23 13:27 Antibiotics) cephalexin [From Keflex] AdvReac Mild ADR-Itching Verified 06/03/23 13:27 naproxen [From Aleve] AdvReac Mild ADR-Nausea Verified 06/03/23 13:27
[2023-12-14 17:33] VITALS: RESP 19
[2023-12-14] MEDS: morphine 4 mg/mL SDV 1 mL IVP (17:33)
[2023-12-14] MEDS: ondansetron 2 mg/ML SDV 2 mL 4 MG IVP ×2 (17:34→21:19)
[2023-12-14 18:00] VITALS: BP 165/108; PULSE 84; O2SAT 98
[2023-12-14 18:41] LABS: Basophils % 0.1 %; Hematocrit 37.3 % (36-47); Lymphocytes # 0.4 10^3/uL (0.8-4.8); Lymphocytes % 3.4 %; Mean Corpuscular HGB Conc 31.4 g/dL (30-55); Mean Corpuscular Hemoglobin 27.1 pg (27-33); Mean Corpuscular Volume 86.5 fl (85-98); Mean Platelet Volume 9.7 fL (7.4-10.4); Monocytes # 0.7 10^3/uL (0.2-0.9); Monocytes % 5.9 %; Neutrophils # 10.62 10^3/uL (1.8-7.7); Neutrophils % 89.8 %; Nucleated Red Blood Cells % 0 %; Platelet Count 125 10^3/cmm (157-399); Red Blood Count 4.31 10^6/uL (3.85-5.65); Red Cell Distribution Width 15.6 % (12.1-15.1); White Blood Count 11.83 10^3/uL (3.29-11.43)
[2023-12-14 18:56] LABS: Anion Gap 14.5 (5-19); Blood Urea Nitrogen 12 mg/dL (8-23); Calcium 9.1 mg/dL (8.5-10.5); Carbon Dioxide 24 mmol/L (22-29); Chloride 101 mmol/L (98-107); Creatinine Clr Calc Pharmacy 49.6065; Glucose 136 mg/dL (65-115); Osmolality Calculated 284 mOsm/kg (285-295); Potassium 3.5 mmol/L (3.5-5.1); Sodium 136 mmol/L (136-145)
[2023-12-14 19:02] LABS: Creatine Phosphokinase 761 U/L (26-192)
--- NOTE | 2023-12-14 19:21 | XRR_ITS ---
PROCEDURE INFORMATION: Exam: XR Right Hip Exam date and time: 12/14/2023 7:36 PM Age: 88 years old Clinical indication: Hip pain; Right hip; Additional info: Pain, fall TECHNIQUE: Imaging protocol: Radiologic exam of the right hip. Views: 1 view hip with pelvis when performed. COMPARISON: CT abdomen pelvis w con* [id number] 10/31/2022 1:31 PM FINDINGS: Bones/joints: Moderate osseous demineralization. Normal alignment. No evidence of acute fracture or dislocation. Mild degenerative changes of the hips. Soft tissues: Unremarkable. XR/XR hip RT 2-3V wo/w pel* [id number] IMPRESSION: No evidence of acute fracture or dislocation.
[2023-12-14 19:24] VITALS: BP 191/75; PULSE 84; O2SAT 97
[2023-12-14 19:40] LABS: Bilirubin Urine Negative (Negative); Blood Urine 3+ (Negative); Glucose Urine UA Negative (Normal); Ketones Urine Negative (Negative); Leukocyte Esterase Urine 1+ (Negative); Nitrate Urine Negative (Negative); Protein Urine 4+ (Negative); Specific Gravity, Urine 1.021 (1.005-1.030); Urine Appearance Turbid (CLEAR); Urine Color Dark Yellow (Yellow)
[2023-12-14 19:46] LABS: Add Urine Microscopic? YES; Bacteria Urine EXCEEDS /hpf; Hyaline Casts Urine 9.07 /lpf; WBC Urine 21-50 /hpf (0-5)
[2023-12-14 20:00] LABS: UA Slide Review UA Slide Review Perf
[2023-12-14 20:01] LABS: Add Urine Culture? Yes
[2023-12-14] MEDS: ciprofloxacin 500 mg Tablet PO (21:04)
[2023-12-14 21:06] VITALS: BP 181/72; PULSE 109; O2SAT 90
[2023-12-14] MEDS: sodium chloride 0.9% 1,000 ML 999 ML IV (21:22)
[2023-12-14] MEDS: cefTRIAXone 1,000 mg SDV 1000 MG IVP (21:22)
[2023-12-14 22:55] VITALS: BP 170/102; PULSE 90; RESP 20; O2SAT 95
== END 2023-12-14 22:57 | disposition home or self-care (01) ==
PROVIDERS: Emergency Provider Emergency Medicine; PCP Family Medicine
DX: N39.0 Urinary tract infection, site not specified (principal); I10 Essential (primary) hypertension; Z85.3 Personal history of malignant neoplasm of breast
CPT/HCPCS: 70450; 72125; 73502; 80048; 81001; 82550; 85025; 87077; 87086; 87186; 96374; 96375; 96376; 99285; J0696; J2270; J2405; J7030